=== PATIENT | female | born 1970 | race Caucasian/White ===

== ENCOUNTER 2023-06-30 12:52 | Outpatient (REF) | payer MEDICAID, SELFPAY ==
--- NOTE | 2023-06-30 13:49 | MHC.AU.HA1 ---
Hearing Aid Evaluation Date of Visit: 06/30/23 Historical Information: Description of Hearing: Within normal sloping to moderately-severe sensorineural hearing loss, bilaterally Summary: Elsa recently noticed hearing loss in January 2023 following treatment with cisplatin for cancer. 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 She initially noticed a constant, bilateral ringing in her ears following cisplatin administration. More recently, when her sister was driving her to [place] for treatments, her sister commented that her hearing may also be affected, as she is not hearing and understanding as well as she used to. Elsa has noticed increasing communication difficulties as well, always asking for repetition and rarely understanding a full conversation. She had her hearing evaluated at [facility] and was provided medical clearance for hearing aids. She is hoping hearing aids help ease some of her communication difficulties and help minimize the perception of ringing in her ears. Hearing Aid Prescription: Based on the individual?s shared listening needs, communication environments, dexterity, desire for connectivity, and personal preferences, the following prescription for amplification has been made: Right ear: Make, Model, Color: Phonak Audeo L70-R Color: Sand Beige Battery Size: Rechargeable Collar Feller/Slim Tube: 1M Type of Earmold/Dome/CShell/SlimTip: Small open dome Left ear: Left ear prescription to be same as Right Hearing Aid above: Make, Model, Color: Phonak Audeo L70-R Color: Sand Beige Battery Size: Rechargeable Collar Feller/Slim Tube: 1M Type of Earmold/Dome/CShell/SlimTip: Small open dome Plan of Care: Patient wishes to purchase hearing aids as prescribed Action Taken/Action Needed: Hearing Instrument Fitting to be scheduled when materials arrive Primary Diagnosis: H90.3 Bilateral Sensorineural Hearing Loss Signature: Provider: Narayan Dickson, [facility]
== END 2023-06-30 12:53 | disposition home or self-care (01) ==
LOC: HO.HAP 12:52
PROVIDERS: Visit Provider Otolaryngology
DX: Z46.1 Encounter for fitting and adjustment of hearing aid (principal); H90.3 Sensorineural hearing loss, bilateral
CPT/HCPCS: 92591

== ENCOUNTER 2023-07-25 10:23 | Outpatient (REF) | payer MEDICAID, SELFPAY ==
--- NOTE | 2023-07-25 11:25 | MHC.AU.HA2 ---
Hearing Instrument Fitting- Adult- Binaural Date of Visit: 07/25/23 Hearing Instruments Dispensed: Right Ear: Make, Model, Color, Serial Number: Phonyusra Fosseo L70-R SN: [id number] Color: Sand Beige [employer] Rental Manager Repair Warranty: 10/11/2026 [employer] Fac[employer] Rental Manager Loss and Damage Warranty: 10/11/2026 [facility] Service Plan: 07/25/2024 Battery Size: Rechargeable Call Center Rn/Slim Tube: 1M Earmold/Dome/CShell/SlimTip: Small open dome (no retention tail) Type of Wax Guard: CeruShield Left Ear: Make, Model, Color, Serial Number: Phonak Prudenceeo L70-R SN: [id number] Color: Sand Beige [employer] Fac[employer] Rental Manager Repair Warranty: 10/11/2026 [employer] Rental Manager Loss and Damage Warranty: 10/11/2026 [facility] Service Plan: 07/25/2024 Battery Size: Rechargeable Call Center Rn/Slim Tube: 1M Earmold/Dome/CShell/SlimTip: Small open dome (no retention tail) Type of Wax Guard: CeruShield Accessories/Assistive Technology: Allergist Immunologist: SN: [id number] Summary of Fitting: Performed feedback analyzer and real ear measures. Elsa commented on the loudness of her own voice; otherwise, the hearing aids were comfortable at real ear settings. Discussed care, use, and rechargeability including manually turning on/off, volume control use, and changing domes and wax guards. Practiced insertion and removal. Elsa was able to manipulate the hearing aids easily. Explained acclimatization period and importance of daily, consistent use. Elsa seemed motivated to use and adapt to the hearing aids. Paired to cellphone but did not connect to Phonak koby at this time. Recommendations: A hearing instrument follow-up was scheduled. Diagnosis Code(s): Primary Diagnosis: H90.3 Bilateral Sensorineural Hearing Loss Signature: Provider: Narayan Dickson, [facility]
== END 2023-07-25 10:24 | disposition home or self-care (01) ==
LOC: HO.HAP 10:23
PROVIDERS: Visit Provider Family Medicine
DX: Z46.1 Encounter for fitting and adjustment of hearing aid (principal); H90.3 Sensorineural hearing loss, bilateral
CPT/HCPCS: V5011; V5020; V5160; V5261

== ENCOUNTER 2023-08-12 11:24 | Outpatient (REF) | payer MEDICAID, SELFPAY | END 2023-08-12 11:25 | disposition home or self-care (01) | LOC: HO.HAP 11:24 | PROVIDERS: Visit Provider Otolaryngology | DX: Z13.89 Encounter for screening for other disorder (principal) ==

== ENCOUNTER 2025-03-11 14:27 | Outpatient (REF) | payer MEDICAID, SELFPAY ==
--- OUTSIDE RECORDS SUMMARY | 2025-03-11 14:37 | XMS_ITS | Continuity of Care Document ---
Author Name [facility] Organization [facility] Care Team Providers Care Vat Tender Name Role Phone [facility] Unavailable Unavailable Social History Combined list of available smoking, tobacco, and other social history from [facility] facilities. Social History Type Response Date Comment Sourc e This section is an empty social history section. [facility]
--- OUTSIDE RECORDS SUMMARY | 2025-03-11 14:38 | XMS_ITS | Continuity of Care Document ---
[facility] Organization [facility] , [facility], OFFICE Address [address] [place] [address] Care Team Providers Care Stitch Burnisher Name Role Phone ALEXSHADYALLI OTHER THU PAIGE Stock Worker [facility] OTHER RENETTA STEWART Primary Care Provider [phone] ALEXI LUNDY Diagnostic Radiologist GRISELDA MATTHEW Plastic/Reconstructive Mora geon ALEXI LUNDY Medical Oncologist Assessment No assessment recorded. Plan of Treatment Reminders Order Date Submit Date Provider Last Modified By Organization Details Last Modified Time Details Appointments Same Day Appt, 15 2024 10:00A M RENETTA STEWART NP Not available Not available Not available Ultraso und 2024 09:45A M [facility] Ultrasound Not available Not available Not available Radiolo gy Same Day 2024 10:20A M [facility] Radiology Not available Not available Not available NOAC Phone Call 2025 10:00A M Ehcnoac Not available Not available Not available Lab None recorde d. Referral None recorde d. Procedures None recorde d. Surgeries None recorde d. Imaging XR, thoraci c spine 20[address] ([address] [address], [place], [address], 03/11/2025 11:32:26 US, chest 2024 025 [facility] (Imaging), [address] , [place], [address], 03/11/2025 11:32:37 Medication Orders None recorde d. Patient TargetsNo targets recorded. Patient Instructions Encounter Date Encounter Id Patient Instructions Last Modified By Organization Details Last Modified Time 03/11/2025 [id number] CCM: The provide r and patient discussed the Chronic Care Management program, including the services provided, and any fees associated with them. [email or web address] Not available 03/11/2025 10:28:16 Reason for Referral None Reported. 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 Danita Oseguera M.DTanya [address] [place] [address] [place], [address], [facility] 4 09:22:48 Major depressive disorder 063999826 Active Danita Oseguera M.DTanya [address] [place] [address] [place], [address], [facility] 4 13:15:08 Personal history of primary malignant neoplasm of breast 110256762 Active Danitaluke Oseguera M.DTanya [address] [place] [address] [place], [address], [facility] 4 13:15:08 Neoplasm of adrenal gland 186624100 Active Thu Paige MD [address] [place] [address] [place], [address], [facility] 4 11:37:39 Malignant tumor of thyroid gland 891970249 Active Thu Paige MD [address] [place] [address] [place], [address], [facility] 5 14:57:45 Eruption 742345708 Active Becca Stubbs NP [address] [place], [place] [address], [address], [facility] 6 14:56:21 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 Please review this document and add these problems to the patient's chart manually as needed. Problem Notes None recorded. Procedures Surgical History Date Name Laterality Status Provider Name and Address Organization Details Recorded Time 4 Wound Care completed Lilliana Orellana LPN [facility] 08/10/2024 10:19:57 4 G2211 completed RENETTA STEWART NP [address] [place] [address], [address], [facility] 01/30/2024 12:28:45 0 Post hospital/SNF follow-up/Trans itional Care completed Estefanía Sanches CMA [facility] 10/16/2020 08:41:17 8 Shave Biopsy completed Jonas Puga MD [address] [place] [address], [address], [facility] 08/25/2018 13:05:22 8 [address]: Manual Therapy completed Divya Conner, ALICIA [address] [place] [address], [address], [facility] 02/02/2018 17:08:53 8 Physical Activity Counselling completed Divya Conner, PT [address] [place], [address], [facility] 01/22/2018 20:32:47 8 [address]783: PT Eval Low Complexity completed Divya Conner, PT [address] [place], [address], [facility] 01/22/2018 20:32:43 5 Mastectomy completed Danita Topton M.D. [address] [place] [address], [address], [facility] 06/12/2014 13:20:29 3 completed Danita Oumar M.D. [address] [place] [address], [address], [facility] 06/19/2014 15:03:05 Thyroid Surgery completed Danita Dumo nt M.D. [address] [place] [address], [address], [facility] 06/12/2014 13:20:29 Imaging Results None recorded. Procedure Notes None recorded. Medical Equipment None Reported. Allergies Allergen ID Allergen Name Allergen Category Reaction Reaction Severity Criticality Documentation Date Start Date Code Code System Note Provider Name and Address Organization Details Recorded Time 852352 Bactrim medicatio n rash Not available Not available 03/18/2014 66898 9 RxNorm Estefanía Garza MA [facility] 4 09:32:21 848362 acetamino phen / oxycodone medicatio n nausea Not available Not available 03/18/2014 11132 3 RxNorm Estefanía Garza MA [facility] 4 09:32:21 Medications Name Sig Start Date Stop Date Status Note LastModified by Organization Details LastModified Time cyclobenz aprine 10 mg tablet active Not Available Not Available No t Available amoxicill in 500 mg capsule TAKE 2 CAPSULES BY MOUTH STAT THEN TAKE ONE CAPSULE EVERY 8 HOURS FOR 7 DAYS 02/22 completed Not Available Not Available Not Available levothyro xine 137 mcg tablet TAKE 1 TABLET BY MOUTH EVERY DAY 12/12/ 2022 12/21 /2022 completed Not Available Not Available Not Available doxycycli ne hyclate 100 mg capsule TAKE 1 CAPSULE BY MOUTH TWICE A DAY FOR 7 DAYS 01/29 completed Not Available Not Available Not Available albuterol sulfate 2.5 mg/3 mL (0.083 %) solution for nebulizat ion 11/25 completed Pt not taking 03/06/20 Not Available Not Available Not Available citalopra m 40 mg tablet TAKE 1 TABLET BY MOUTH EVERY DAY 2023 active Not Available Not Available Not Avai lable azithromy antoinette 250 mg tablet TAKE 2 TABLETS (500 MG) BY ORAL ROUTE ONCE DAILY FOR 1 DAY THEN 1 TABLET (250 MG) BY ORAL ROUTE ONCE DAILY FOR 4 DAYS 01/16 completed per [facility] ER note01/17/24 yr pt not taking Not Available Not Available Not Available fluconazo le 150 mg tablet TAKE 1 TABLET BY MOUTH ONCE active Not Available Not Available No t Available benzonata te 200 mg capsule 03/06 completed Pt not taking 03/06/20 NMT Not Available Not Available Not Available hydrocodo ne 5 mg-acetam inophen 325 mg tablet TAKE 1 TABLET BY MOUTH THREE TIMES A DAY FOR 7 DAYS 03/14 completed Not Available Not Available Not Available ondansetr on HCl 8 mg tablet TAKE 1 TABLET BY MOUTH EVERY 8 HOURS NEEDED FOR NAUSEA 01/16 completed has, not using 05/19/23/ 01/17/24 yr pt not taking Not Available Not Available Not Available phenazopy ridine 200 mg tablet 08/17 completed Not Available Not Available Not Available prednison e 20 mg tablet 03/06 completed Pt not using 03/06/20 NMT Not Available Not Available Not Available penicilli n V potassium 500 mg tablet active Not Available Not Available Not Available metronida zole 500 mg tablet Take 1 tablet every 12 hours by oral route for 7 days. 06/14 completed Not Available Not Available Not Available acetamino phen 300 mg-codein e 30 mg tablet Take 1 tablet every 6 hours by oral route as needed for 5 days. 01/10 completed Not Available Not Available Not Available prochlorp erazine maleate 10 mg tablet TAKE 1 TABLET BY MOUTH EVERY 6 HOURS NEEDED FOR NAUSEA 01/16 completed has, not using 05/19/23 4yr pt not taking Not Available Not Available Not Available tramadol 50 mg tablet TAKE 1 TABLET (50 MG TOTAL) BY MOUTH EVERY 6 HOURS NEEDED FOR PAIN 01/16 completed No longer taking 05/19.01/17/24 yr pt not taking Not Available Not Available Not Available cefadroxi l 500 mg capsule TAKE 1 CAPSULE BY MOUTH TWICE A DAY FOR 10 DAYS 06/24 completed Not Available Not Available Not Available amoxicill in 875 mg tablet active Not Available Not Available Not Available hydromorp mendez 2 mg tablet TAKE 1 TABLET BY MOUTH EVERY 4 HOURS NEEDED 01/16 completed 01/17/24 yr pt not taking Not Available Not Available Not Available citalopra m 20 mg tablet TAKE 1 TABLET BY MOUTH EVERY DAY 02/24 completed Not Available Not Available Not Available prednisol one acetate 1 % eye drops,holley pension PLACE 1 DROP IN LEFT EYE 4 TIMES A DAY DIRECTED FOR 10 DAYS 12/28 completed Not Available Not Available Not Available phenazopy ridine 100 mg tablet Take 1 tablet 3 times a day by oral route as needed for 2 days. 10/16 completed Not Available Not Available Not Available baclofen 10 mg tablet TAKE 1 TABLET BY MOUTH EVERY 8 HOURS NEEDED active Not Available Not Available No t Available benzonata te 100 mg capsule 01/29 completed 01/17/24 yr pt not taking Not Available Not Available Not Available doxycycli ne monohydra te 100 mg capsule 03/11 completed Still currentl y taking 08/10/24 cc, Finished course 08/14/24 cc Not Available Not Available Not Available hydrocodo ne 7.5 mg-acetam inophen 325 mg tablet TAKE 1 TABLET BY MOUTH EVERY 12 HOURS NEEDED FOR PAIN 08/17 completed Not Available Not Available Not Available cephalexi n 500 mg capsule TAKE ONE CAPSULE BY MOUTH EVERY 6 HOURS FOR 7 DAYS 08/10 completed PT not taking 08/07/24 MW Not Available Not Available Not Available erythromy antoinette 5 mg/gram (0.5 %) eye ointment APPLY 1/2 INCH IN RIGHT EYE FOUR TIMES DAILY FOR 7 DAYS 01/29 completed 01/17/24 yr pt not taking Not Available Not Available Not Available levothyro xine 125 mcg tablet TAKE 1 TABLET BY MOUTH EVERY DAY active Not Available Not Available No t Available dexametha sone 4 mg tablet TAKE 1 TABLET (4 MG) ON DAY 4 OF CHEMO, THEN TAKE 1/2 TABLET (2 MG) ON DAY 5. 01/16 completed no longer taking 05/19/23/ / 01/17/24 yr pt not taking Not Available Not Available Not Available levothyro xine 150 mcg tablet TAKE 1 TABLET BY MOUTH EVERY DAY *NEED LABS FOR FURTHER REFILLS* 2024 active Not Available Not Available Not Avai lable ibuprofen 400 mg tablet TAKE 1 TABLET BY MOUTH EVERY 8 TO 12 HOURS NEEDED active Not Available Not Available No t Available omeprazol e 20 mg capsule,d elayed release TAKE ONE CAPSULE BY MOUTH EVERY DAY 01/18 completed Not Available Not Available Not Available Culturell e 10 billion cell capsule Take by oral route 1 capsule bid x 2-4 weeks 2013 active Not Available Not Available Not Avai lable bisacodyl 5 mg tablet,de layed release TAKE 4 TABLETS BY MOUTH WITH 80Z OF WATER ONCE THE DAY BEFORE PROCEDUR E 12/28 completed Not Available Not Available Not Available mupirocin 2 % topical ointment APPLY IN EACH NOSTRIL TWICE A DAY FOR 5 DAYS 03/11 completed Not Available Not Available Not Available gabapenti n 100 mg capsule TAKE 2 CAPSULES (200 MG TOTAL) BY MOUTH 2 (TWO) TIMES A DAY FOR 10 DAYS. 01/16 completed 01/17/24 yr pt not taking Not Available Not Available Not Available levofloxa antoinette 750 mg tablet Take 1 tablet every day by oral route for 7 days. 03/11 completed Not Available Not Available Not Available ondansetr on 4 mg disintegr ating tablet 01/29 completed 01/17/24 yr pt not taking Not Available Not Available Not Available fluticaso ne propionat e 50 mcg/actua tion nasal spray,holley pension USE 2 SPRAYS NASALLY EVERY DAY FOR 14 DAYS 01/10 completed Not Available Not Available Not Available amoxicill in 875 mg-potass ium clavulana te 125 mg tablet TAKE 1 TABLET BY MOUTH EVERY 12 HOURS FOR 7 DAYS 01/29 completed Not Available Not Available Not Available tobramyci n 0.3 %-dexamet hasone 0.1 % eye drops,holley ellison PUT 1 DROP INTO LEFT EYE 4 TIMES A DAY FOR 5 DAYS 12/28 completed Not Available Not Available Not Available nitrofura ntoin monohydra te/macroc rystals 100 mg capsule Take 1 capsule every 12 hours by oral route for 5 days. 10/16 completed Not Available Not Available Not Available GaviLyte- G 236 gram-22.7 4 gram-6.74 gram-5.86 gram oral solution USE DIRECTED 12/28 completed Not Available Not Available Not Available EpiPen 2-Abrahan 0.3 mg/0.3 mL injection , auto-inje ctor USE DIRECTED NEEDED FOR ALERGIC REACTION 01/29 completed no longer taking 05/19/23/ / 01/17/24 yr pt not taking Not Available Not Available Not Available Eliquis 5 mg tablet TAKE 1 TABLET BY MOUTH 2 TIMES A DAY 02/05 completed pt not taking 08/07/24 MW Not Available Not Available Not Available Vitals Date Recorded Body height Body mass index (BMI) Body weight Oxygen saturation Oxygen saturation in Arterial blood by Pulse oximetry Heart rate Systolic blood pressure Diastolic blood pressure Provider Name and Address Organization Details Last Updated DateTime 5 166.37 cm 33.2 kg/m2 93920.7 6 g 98 % 98 % 79 /min 124 mm[Hg] 94 mm[Hg] Mirela Braxton CMA [facility] 5 10:31:35 Social History Question Answer Notes LastModified by Organizat ion Details LastModified Time Tobacco Smoking Status Never Smoker [place], [facility] 03/18/2014 09:32:21 Do You Wear A Helmet When Biking? Yes Information not available 03/18/2014 What Is Your Level Of Caffeine Consumption? Moderate ~3 Cups Caffeine/day, Encoruaged To Cut Down To 1 Soda Occasionally [email or web address] Information not available 03/14/2024 How Much Tobacco Do You Chew? None Information not available 03/18/2014 What Type Of Diet Are You Following? REGULAR Information not available 03/18/2014 Which Illicit Or Recreational Drugs Have You Used? Denies Information not available 06/12/2014 Education 12 Information no t available 03/18/2014 What Is The Highest Grade Or Level Of School You Have Completed Or The Highest Degree You Have Received? BY14184-4 [email or web address] Information not available 03/14/2024 How Many Days In The Past Year Have You Had A Heavy Drinking Consumption (4+ Female, 5+ Male)? 0 Information not available 03/18/2014 Are There Any Guns Present In Your Home? No Information not available 06/12/2014 Do You Use Insect Repellent Routinely? Yes [email or web address] Information not available 03/14/2024 Live Alone Or With Others? With Others Information not available 03/18/2014 Patient Has Health Care Proxy Signed And In Chart Yes Information not available 06/12/2014 Marital Status Divroced 08/2020 Information not available 10/16/2020 Mosquito Repellent Used Routinely Yes Information not available 03/18/2014 What Was The Date Of Your Most Recent Tobacco Screening? 03/11/2025 [email or web address] Information not available 03/11/2025 How Many Children Do You Have? 1 2003, [place] Information not available 03/18/2014 What Is Your Relationship Status? [email or web address] Information not available 03/14/2024 Do You Use Your Seat Belt Or Car Seat Routinely? Yes Information not available 05/19/2023 Seat Belts Used Routinely Yes Information not available 03/18/2014 Are You Sexually Active? Yes Information not available 06/12/2014 Smoke Alarm In Home Yes Information not available 03/18/2014 Do You Have Smoke And Carbon Monoxide Detectors In Your Home? Yes Information not available 05/19/2023 Are You Passively Exposed To Smoke? No Information not available 05/19/2023 General Stress Level Medium Information not available 03/18/2014 Do You Use Sunscreen Routinely? Yes Information not available 03/18/2014 Sex: Female Functional Status Question Answer Note LastModified by Organizat ion Details LastModified Time Do you use any illicit or recreational drugs? No Information not available 05/19/2023 What is your level of alcohol consumption? Occasional 1 drink daily Information not available 03/18/2014 Are you currently employed? 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 Occasional Information not available 03/14/2024 Mental Status None recorded. Family History Relationship Description Onset Age of this Age Resolved Age Notes LastModified by Organization Details LastModified Time Maternal Grandfather Malignant neoplasm of bone nos tdumont Not available 2013 15:58:28 Maternal Aunt Malignant tumor of breast 60s tdumont Not available 2013 15:58:28 Maternal Aunt Goiter s/p resect ion tdumont Not available 08/28/2014 15:58:28 Mother Goiter thyroi dectom y as a young adult tdumont Not available 08/28/2014 15:58:28 Father Renal failure syndrome 66 tdumont Not available 2013 15:58:28 Father Essential hypertension tdumont Not available 15:58:28 Brother Essential hypertension tdumont Not available 15:58:28 Paternal Grandmother Malignant neoplasm of lung nonsmo ker (?also breast per dr tan travis's 005 note) tdumont Not available 08/28/2014 15:58:28 Maternal Grandmother Goiter s/p resect ion tdumont Not available 08/28/2014 15:58:28 Notes:paternal cousin with c olon cancer Medical History No medical history recorded. Gynecological History Statement/Question Response Menses Monthly Y Current Control Method IUD Obstetrics History GPAL:G 0 P 0 0 0 0 Immunizations Vaccine Type Date Status Note Provider Nam e and Address Organization Details Recorded Time Influenza, split virus, trivalent, PF 4 completed Not Available [facility] 11/17/2019 02:19:22 influenza, unspecified formulation 2 completed Not Available [facility] 07/15/2021 06:53:40 Tdap 2 completed Not Available [facility] 07/15/2021 06:53:40 Influenza, split virus, quadrivalent, PF 7 completed Not Available [facility] 11/17/2019 02:37:12 Influenza, split virus, quadrivalent, PF 8 completed Not Available [facility] 11/17/2019 02:27:14 Td (adult), 2 Lf tetanus toxoid, preservative free, adsorbed 4 completed RENETTA STEWART NP [address] [place], [address], [facility] 03/14/2024 12:09:39 influenza, unspecified formulation 2 completed Luciana Rodgers [facility], [facility] 10/19/2022 13:45:05 Pneumococcal conjugate PCV20, polysaccharide UAN112 conjugate, adjuvant, PF 2 completed Yvonne Interiano [facility], [facility] 10/22/2022 09:47:50 Past Encounters Encounter ID Performer Location Encounter Start Date Encounter Closed Date Diagnosis/Indication Diagnosis SNOMED-CT Code Diagnosis ICD10 Code Diagnosis Note [id number] Jin Rajan MD , [facility], OFFICE [address] [place] [address] 03/11/2025 10:14:57 03/11/2025 11:24:10 Li-Fraumeni syndrome 821004557 Z15.01 Managed through multiple specialist s, [facility] general oncology team in [place] [id number] R 22.9 -new concern, discovered last week-will obtain x-ray and u/s to best assess the area Health Concerns Section Related Observation LastModified by Organization Detai ls LastModified Time None Recorded Concern Status LastModified by Organization Details LastModified Time None Recorded Payers Encounter Date Sequence Insurance Name Policy Number Policy Gutierrez Covered Member ID Gutierrez Member ID Guarantor Name 03/11/2025 1 [place] [employer] Elsa Henley [id number] Elsa Henley 03/11/2025 2 [place] [facility] Elsa Henley [id number] Elsa Henley Notes Date Note Type Note Provider Name and Address Organization Details Recorded Time 03/11/2025 text/html 03/11/25 -noticed new lump on her mid-spine just last week-not painful-never had a lump like this before-no other associated symptoms RENETTA STEWART NP [address] [place] [address], [place], [address], [facility] 03/11/2025 11:24:07 OBGyn Episode No OBEpisode recorded.
--- OUTSIDE RECORDS SUMMARY | 2025-03-11 14:38 | XMS_ITS | Data Portability ---
Author Organization [facility], , [facility] Address [address] [place] [address] Care Team Providers Care Home Health Care Provider Name Role Phone ALLI PEREZ OTHER THU PAIGE Shoe Puller [facility] OTHER RENETTA STEWART Primary Care Provider [phone] ALEXI LUNDY Diagnostic Radiologist GRISELDA MATTHEW Plastic/Reconstructive Mora geon ALEXI LUNDY Medical Oncologist Assessment No assessment recorded. Plan of Treatment Reminders Order Date Submit Date Provider Last Modified By Organization Details Last Modified Time Details Appointments Same Day Appt, 15 2024 10:00A M RENETTA STEWART NP Not available Not available Not available Ultraso und 2024 09:45A M [facility] Ultrasound Not available Not available Not available Radiolo gy Same Day 2024 10:20A M [facility] Radiology Not available Not available Not available NOAC Phone Call 2025 10:00A M [facility] Not available Not available Not available Lab pap, LB + HPV - Pap smear with HPVIs this patient on hormone s? (N) If yes, what type? 2023 024 [facility] (Pathology), [address] [facility], [place], [address], 03/22/2024 11:10:59 Referral None recorde d. Procedures None recorde d. Surgeries None recorde d. Imaging XR, thoraci c spine [address] (Imaging), [address], [place], [address], 03/11/2025 11:32:26 US, chest [address] (Imaging), [address], [place], [address], 03/11/2025 11:32:37 Medication Orders levoflo xacin 750 mg tablet 2023 025 [id number], [address], [place], [id number], 03/11/2025 10:30:34 levoflo xacin 750 mg tablet 2023 024 [email or web address] [facility] #[id number], [address], [place], [id number], 03/11/2025 10:29:07 mupiroc in 2 % topical ointmen t 2023 025 [facility]/Pharmacy #5, [address] [place], [address], 03/11/2025 10:29:21 Patient TargetsNo targets recorded. Patient Instructions Encounter Date Encounter Id Patient Instructions Last Modified By Organization Details Last Modified Time 08/10/2024 [id number] CCM: The provide r and patient discussed the Chronic Care Management program, including the services provided, and any fees associated with them. [email or web address] Not available 08/09/2024 16:57:47 03/11/2025 [id number] CCM: The provide r and patient discussed the Chronic Care Management program, including the services provided, and any fees associated with them. [email or web address] Not available 03/11/2025 10:28:16 Reason for Referral None Reported. Results Created Date Observation Date Name Description Value Unit Range Abnormal Flag Note LastModifiedBy Organization Detail LastModifiedTime 03/14/20 24 03/22/2024 PAP TEST path report Ramakrishnaangy lopez [facility] [address] [facility] Collin efrain burger, [place] [address] Lab Direc tor: Ngozi arias MD DIRECTOR [employer] Cytol ogy Repor t Acces hillary #: [id number] FINAL DIAGN OSIS A. PAP SMEAR (THIN PREP) CE: SPECI MEN ADEQU ACY: Satis facto ry for evalu ation ; trans forma tion zone absen t/ins [facility] ient. INTER PRETA TION: NEGAT ELIZABETH FOR INTRA EPITH ELIAL LESIO N OR MALIG YUNG . Cocco bacil li consi stent with shift in traci This speci men was win zed by the autom ated ThinP rep Imagi ricardo Julio m ([employer]. ) and manua antonietay rescr eened by a cytot echno logis t and/o r patho logis t. Elect reggie singh Yvonne d Out By: Viky Cleveland , CT( CP) Joyce Bright er, CT( CP) The Pap test is a scree jamison test prima rily for squam ous cance rs and precu rsors and has assoc iated false -nega tive and false -posi tive resul ts. New techn ologi es such as liqui d-bas ed prepa ratio ns may decre ase but will not elimi kylee all false -nega tive resul ts. Regul ar sampl ing and follo w-up of unexp jean d clini raquel signs and sympt oms are recom aaron d to minim ize false negat elizabeth resul ts. PROCE DURES /ADDE NDA HPV Testi ng (Requ ested ) Order ed Date: 2023 A. PAP SMEAR (THIN PREP) CE: Human Papil sweetie Virus Test NEGAT ELIZABETH for high- risk Human Papil sweetie Virus types 16, 18, 45 and the Othe r high risk probe set (Incl udes 31, 33, 35, 39, 51, 52, 56, 58, 59, 66, 68) Note: Testi ng perfo rmed by William Asher nson Oncla rity HR-HP V win sis. Clini raquel corre latio n is advis ed. This HPV test was perfo rmed at [facility], [address] [facility] tts. This test has been FDA appro radha for both SureP ath and ThinP rep cervi raquel cytol ogy speci mens. The accur acy and preci hillary of this test for all other speci men sourc es has been verif ied in the Cytop athol ogy Labor atory of the [facility] denise and has not been clear ed or appro radha by the U.S. Food and Drug Admin istra tion. Clini raquel corre latio n is advis ed. Marium ctron icall y Yvonne d Out By: MELINA Campos( CP) on 2023 11:16 CLINI RAQUEL HISTO RY Date of Last Menst rual Perio d: Not Provi ded Menst rual Histo ry: Post Menop ausal Other Clini raquel Condi tions : Scree jamison Pap SPECI MEN SOURC E A: PAP SMEAR (THIN PREP) CE Patie nt Name: DEVANTE RIVERA : 972 (Age: 53) Sex: F 8 Insti tutio n: [facility] Locat ion: [facility] Date of Colle ction : 2023 Date of Acces hillary: 2023 Repor rosi: 2023 10:45 Resul ts to: Renetta parker BULB PACKER Not Available [facility] (Outpatient) [address] [place] [address], [address], 03/22/2024 11:10:59 Result Notes None recorded. 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 [address] [place], [place] [address], [address], [facility] 4 09:22:48 Major depressive disorder 644544907 Active Danita Oseguera M.D. [address] [place], [place] [address], [address], [facility] 4 13:15:08 Personal history of primary malignant neoplasm of breast 111931710 Active Danita Oseguera M.D. [address] [place], [place] [address], [address], [facility] 4 13:15:08 Neoplasm of adrenal gland 910312771 Active Thu Paige MD [address] [place], [place] [address], [address], [facility] 4 11:37:39 Malignant tumor of thyroid gland 038066065 Active Thu Paige MD [address] [place], [place] [address], [address], [facility] 5 14:57:45 Eruption 438414919 Active Becca Stubbs NP [address] [place], [place] [address], [address], [facility] 6 14:56:21 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 Please review this document and add these problems to the patient's chart manually as needed. Problem Notes None recorded. Procedures Surgical History Date Name Laterality Status Provider Name and Address Organization Details Recorded Time 4 Wound Care completed Lilliana Orellana LPN [facility] 08/10/2024 10:19:57 4 G2211 completed RENETTA STEWART NP [address] [place] [address], [address], [facility] 01/30/2024 12:28:45 0 Post hospital/SNF follow-up/Trans itional Care completed Estefanía Sanches CMA [facility] 10/16/2020 08:41:17 8 Shave Biopsy completed Jonas Puga MD [address] [place] [address], [address], [facility] 08/25/2018 13:05:22 8 [address]: Manual Therapy completed Divya Conner, PT [address] [place] [address], [address], [facility] 02/02/2018 17:08:53 8 Physical Activity Counselling completed Divya Conner, PT [address] [place], [address], [facility] 01/22/2018 20:32:47 8 [address]: PT Eval Low Complexity completed Divya Conner, PT [address] [place] [address], [address], [facility] 01/22/2018 20:32:43 5 Mastectomy completed Danita Oseguera M.D. [address] [place] [address], [address], [facility] 06/12/2014 13:20:29 3 completed Danita Oseguera M.D. [address] [place] [address], [address], [facility] 06/19/2014 15:03:05 Thyroid Surgery completed Danita edmonds M.D. [address] [place] [address], [address], [facility] 06/12/2014 13:20:29 Imaging Results None recorded. Procedure Notes None recorded. Medical Equipment None Reported. Allergies Allergen ID Allergen Name Allergen Category Reaction Reaction Severity Criticality Documentation Date Start Date Code Code System Note Provider Name and Address Organization Details Recorded Time 145404 Bactrim medicatio n rash Not available Not available 03/18/2014 37597 9 RxNorm Estefanía RoxyANDREW sandoval [facility] 4 09:32:21 058705 acetamino phen / oxycodone medicatio n nausea Not available Not available 03/18/2014 25011 3 RxNorm Estefanía Garza [place] [facility] 4 09:32:21 Medications Name Sig Start Date [...] TAKE 1 TABLET BY MOUTH EVERY DAY 10/20 completed Not Available Not Available Not Available [...] DAILY FOR 4 DAYS 01/16 completed per [facility] note01/17/24 yr pt not taking Not [...] NAUSEA 01/16 completed has, not using 05/19/23/ 4yr pt not taking Not Available Not [...] 0.3 %-dexamet hasone 0.1 % eye drops,holley pension PUT 1 DROP INTO LEFT EYE 4 [...] rate Systolic blood pressure Diastolic blood pressure Systolic blood pressure Diastolic blood pressure Provider Name and Address Organization Details Last Updated DateTime 4 166.37 cm 33.3 kg/m2 59260.0 5 g 98 % 98 % 75 /min 104 mm[Hg] 88 mm[Hg] 111 mm[Hg] 91 mm[Hg] Jaquan Fontenot [facility] 4 10:36:33 Date Recorded Body height Heart rate Body temperature Systolic blood pressure Diastolic blood pressure Provider Name and Address Organization Details Last Updated DateTime 08/07/2024 166.37 cm 72 /min 98.1 [degF] 118 mm[Hg] 78 mm[Hg] Juanita Green [facility] 4 17:29:04 Date Recorded Body height Oxygen saturation Oxygen saturation in Arterial blood by Pulse oximetry Heart rate Systolic blood pressure Diastolic blood pressure Systolic blood pressure Diastolic blood pressure Provider Name and Address Organization Details Last Updated DateTime 4 166.37 cm 98 % 98 % 94 /min 138 mm[Hg] 94 mm[Hg] 136 mm[Hg] 90 mm[Hg] Karma Centeno [facility] 4 09:34:07 Date Recorded Systolic blood pressure Diastolic blood pressure Provider Name and Address Organization Details Last Updated DateTime 08/10/2024 140 mm[Hg] 85 mm[Hg] Shannon Olivera [facility] 08/10/2024 10:02:34 Date Recorded Body height Oxygen saturation Oxygen saturation in Arterial blood by Pulse oximetry Heart rate Systolic blood pressure Diastolic blood pressure Provider Name and Address Organization Details Last Updated DateTime 4 166.37 cm 99 % 99 % 83 /min 126 mm[Hg] 92 mm[Hg] Karma Centeno [facility] 4 11:50:01 Date Recorded Body height Body mass index (BMI) Body weight Oxygen saturation Oxygen saturation in Arterial blood by Pulse oximetry Heart rate Systolic blood pressure Diastolic blood pressure Provider Name and Address Organization Details Last Updated DateTime 5 166.37 cm 33.2 kg/m2 17039.7 6 g 98 % 98 % 79 /min 124 mm[Hg] 94 mm[Hg] Mirela Braxton CMA [facility] 5 10:31:35 Social History Question Answer Notes LastModified by Organizat ion Details LastModified Time Tobacco Smoking Status Never Smoker ANDREW Beckford, [facility] 03/18/2014 09:32:21 Do You Wear A Helmet When Biking? Yes Information not available 03/18/2014 What Is Your Level Of Caffeine Consumption? Moderate ~3 Cups Caffeine/day, Encoruaged To Cut Down To 1 Soda Occasionally [email or web address] Information not available 03/14/2024 How Much Tobacco [...] Or The Highest Degree You Have Received? [id number] [email or web address] Information not available 03/14/2024 How Many Days In The Past Year Have You Had A Heavy Drinking Consumption (4+ Female, 5+ Male)? 0 Information not available 03/18/2014 Are There Any Guns Present In Your Home? No Information not available 06/12/2014 Do You Use Insect Repellent Routinely? Yes Information not available 03/14/2024 Live Alone Or [...] How Many Children Do You Have? 1 Delores, Mac Information not available 03/18/2014 What Is Your Relationship Status? [email or web address] Information not available 03/14/2024 Do You Use [...] available 03/18/2014 Are you currently employed? 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 Gynecological History Statement/Question Response Menses Monthly Y Current Control Method IUD Obstetrics History GPAL:G 0 P 0 0 0 0 Immunizations Vaccine Type Date Status Note Provider Nam e and Address Organization Details Recorded Time Influenza, split virus, trivalent, PF 4 completed Not Available [facility] 11/17/2019 02:19:22 influenza, unspecified formulation 2 completed Not Available [facility] 07/15/2021 06:53:40 Tdap 2 completed Not Available [facility] 07/15/2021 06:53:40 Influenza, split virus, quadrivalent, PF 7 completed Not Available [facility] 11/17/2019 02:37:12 Influenza, split virus, quadrivalent, PF 8 completed Not Available [facility] 11/17/2019 02:27:14 Td (adult), 2 Lf tetanus toxoid, preservative free, adsorbed 4 completed RENETTA STEWART NP [address] [place], [address], [facility] 03/14/2024 12:09:39 influenza, unspecified formulation 2 completed Luciana Rodgers CMA null, [facility] 10/19/2022 13:45:05 Pneumococcal conjugate PCV20, polysaccharide AUV383 conjugate, adjuvant, PF 2 completed Yvonne Interiano MA null, [facility] 10/22/2022 09:47:50 Past Encounters Encounter ID Performer Location Encounter Start Date Encounter Closed Date Diagnosis/Indication Diagnosis SNOMED-CT Code Diagnosis ICD10 Code Diagnosis Note [id number] Jonas Puga MD , [facility], OFFICE [address] [place] [address] 03/18/2014 09:18:06 03/18/2014 10:28:05 Depressive disorder 95457328 Hypothyroidism 65045849 Surgical removal of thyroid for cancer 2006 [id number] Danita Oseguera M.D. , [facility], OFFICE [address] [place] [address] 06/07/2014 11:24:09 06/07/2014 12:52:45 Counseling [id number] Screening for malignant neoplasm of cervix 188871630 due unclear when last done see below Bacterial vaginosis 659181920 by microscopy +BV w/ clue cells neg andres with yeast or hyphae or no trich on wet mount pt declined g/c testing IUD check 547559815 no s tring on exam today concerning see below Li-Fraumeni syndrome [id number] prior under the care of alli perez md [facility] [address] [place] [address] called 06/07/2014 to obtain guidance re: further screening/ monitoring need to review this with [facility] team: increased risk of sarcoma (which can likely occur in fallopian/ ovarian/ce rvical region), colon and brain tumors pt is s/p mastectomy with silicone implants (which are irreg shaped) she previously was getting whole body MRI which sounds reasonable in light of significan t risks unclear if she should be followed by serology tumor markers like ca 125, cea etc unclear if she should have yearly pap exam w/ hpv testing discussed with pt at length that her condition is rare therefore there is not good data for these specific recommenda tions (will address w/ dr perez) Major depr essive disorder 046582346 on celexa 40mg ekg now w/ normal QT (copy provided to pt for her records) Personal h istory of primary malignant neoplasm of breast 398951786 Neoplasm o f adrenal gland 874025166 history of adrenal tumor Malignant tumor of thyroid gland 715255187 history of thyroid cancer Hypothyroidism 61564831 s/p thyroidect madi due to cancer on stable dose of levothyrox ine [id number] Danita SOARES, [facility], OFFICE [address] [place] [address] 06/28/2014 14:18:51 06/28/2014 16:36:19 Li-Fraumeni syndrome [id number] patient followed by: alli perez md [address] [address] He has specific recommenda tions as he is an expert in this field of a very rare disorder he recommends 1) yearly mri abd/pelvis 2) thyroglubi n ab tumor marker yearly, should be undetectab le 3) thyroid US yearly NOTE: dr perez notes he will see pt anytime needed, does not matter if she has insurance or not she is to obtain the above work up and then see dr perez 1 week later at [facility] Nausea 066826658 3-4 day s of nausea, feels like may throw up completed metronidaz ole ~1 week ago loss of appetite; wt stable no vomiting checking cmp but close follow up needed ?redflag of something concerning or SE of metronidaz ole? Vaginitis 05517541 no improvemen t s/p metronidaz ole; given ongoing heavy dc, trial of fluconazol e for a yeast infection [id number] Thu Paige MD Endocrino logy, [facility] [address] [place] [address] 08/02/2014 10:13:32 08/02/2014 11:53:25 Malignant tumor of thyroid gland 539187255 Hypothyroidism 17561018 Li-Fraumeni syndrome 329592481 [id number] Danita Oseguera M.D. , [facility], OFFICE [address] [place] [address] 08/28/2014 15:25:11 08/28/2014 16:16:55 Li-Fraumeni syndrome [id number] patient followed by: alli perez md [address] [address] He has specific recommenda tions as he is an expert in this field of a very rare disorder he recommends 1) yearly mri abd/pelvis (07/2014 stable, following a pelvic cyst w/ fup pelvic US in aug or sep) 2) thyroglubi n ab tumor marker yearly, should be undetectab le (05/2014 undetectab le) 3) thyroid US yearly (07/2014 wnl) NOTE: dr perez notes he will see pt anytime needed, does not matter if she has insurance or not she is to obtain the above work up and then see dr perez seeing aug 2014 Influenza vaccine needed 2728444154 715 [id number] Becca Stubbs NP , [facility], OFFICE [address] [place] [phone] 01/23/2016 14:47:20 01/23/2016 15:43:45 Adult health examination 293986667 Z00.00 see Risk Assessment and Lifestyle Change Counseling section above Counseling 988985226 Z71 .9 Eruption 418616136 R21 Screening for malignant neoplasm of cervix 008591876 Z12.4 [id number] Becca Stubbs NP , [facility], OFFICE [address] [place] [address] 01/21/2017 09:25:29 01/24/2017 09:50:52 Mass of chest wall 240805932 R22.2 Li-Fraumeni syndrome 428 300975 Z15.01 Infection of sebaceous cyst 557068405 L72.3 [id number] Jonas uPga MD , [facility], OFFICE [address] [place] [address] 01/31/2017 09:19:28 01/31/2017 10:22:04 Adult health examination 267079607 Z00.00 see Risk Assessment and Lifestyle Change Counseling section above Counseling 377425623 Z71 .9 Menorrhagia 888806195 N9 2.0 Li-Fraumeni syndrome 428 174915 Z15.01 Screening for malignant neoplasm of colon 934059949 Z12.11 Referral for a DIRECT booked colonoscop y. This patient is a healthy ASA Class 1 or 2 patient (only mild systemic disease), or a STABLE, well controlled insulin dependent diabetic. They do not have serious cardiac disease ie CA/angiopl asty within 1 year, symptomati c CHF; renal failure with CKD 4 or 5; take Coumadin, Plavix, Aggrenox, etc. [id number] Thu Paige MD Endocrino logy, [address] [place] [address] 02/22/2017 11:04:30 02/22/2017 12:32:22 Hypothyroidism 15241900 E03.9 -reduce levothyrox ine 137mcg by mouth once daily from 150mcg daily-tsh in 3mo-clinic 13 weeks to review-aim for tsh 0.5 to 2 History of malignant neoplasm of thyroid 669092731 Z85.850 -monitor thyroglobu kacie level as send out to [facility] (thyroid cancer monitoring ) in the future when tsh closer to 1 [id number] Jonas Puga MD , [facility], OFFICE [address] [place] [address] 08/17/2017 16:12:46 08/17/2017 17:19:08 Pain in eye 29223740 H57.12 Active or passive immunization 812144662 Z23 Li-Fraumeni syndrome 428 997462 Z15.01 [id number] Jin Rajan MD , [facility], OFFICE [address] [place] [address] 12/28/2017 15:28:45 12/28/2017 16:17:55 Right upper quadrant pain 975142191 R10.11 [id number] Jin Rajan MD , [facility], OFFICE [address] [place] [address] 01/18/2018 16:18:46 01/20/2018 12:08:25 Low back pain 629048969 M54.5 Li-Fraumeni syndrome 428 850662 Z15.01 [id number] Divya Conner, PT Physical Therapy, [address] [address] 01/20/2018 15:05:02 01/23/2018 07:25:10 Low back pain 886221413 M54.5 [id number] Divya Conner, PT Physical Therapy, [address] [address] 02/02/2018 14:32:41 02/03/2018 07:48:31 Low back pain 925309816 M54.5 [id number] Jonas Puga MD [facility], OFFICE [address] [place] [id number] 02/03/2018 15:39:07 02/03/2018 16:27:57 Adult health examination 510735683 Z00.00 see Risk Assessment and Lifestyle Change Counseling section above Counseling 119544143 Z71 .9 Depression screening 171 110330 Z13.89 depression screening tool administer ed, entered into emr, scored and discussed, time greater than 7.5 minutes. Discussed screening. Some struggles in marriage. Citalopram helping. Continue to monitor. Screening for malignant neoplasm of cervix 152788670 Z12.4 Li-Fraumeni syndrome 428 064889 Z15.01 Low back pain 987552762 M54.5 [id number] Jonas Puga MD , [facility], OFFICE [address] [place] [address] 08/10/2018 15:57:40 08/10/2018 16:49:11 Active or passive immunization 236461138 Z23 Li-Fraumeni syndrome 428 688483 Z15.01 Hx of thyroid, breast and adrenal cancer [id number] Jonas Puga MD , [facility], OFFICE [address] [place] [phone] 08/25/2018 11:55:11 08/25/2018 13:06:23 Melanocytic nevus 354919407 D22.9 [id number] Maine Ortiz NP , [facility], OFFICE [address] [place] [phone] 10/10/2018 11:59:52 10/10/2018 13:38:12 Acute upper respiratory infection 17392430 J06.9 Drink plenty of fluids. Eat healthy foods, lots of fruits and vegetables . Rest when you can. Take ibuprofen 400 mg or acetaminop hen 650 mg every 6 hours as needed for aches or headache and for fever. You can use a Neti pot for nasal congestion or sinus pain/press ure. Elderberry extract and Umcka are herbal remedies that have been shown to reduce length of flu-like symptoms. Gargling with salt water can help your immune system fight off the sore throat. Mix 1/2 teaspoon of salt with 8 oz warm water, gargle for 20-30 secs, and spit out the liquid. Repeat twice daily. Use Sugar free lozenges can help with a sore throat. Wash your hands frequently . Symptoms may worsen for the first 7-10 days before they improve For high fever (>101) for more than 3 days, worsening shortness of breath, cough productive of rust-color ed mucus (not dark yellow), or symptoms unchanged at two weeks, come back in for reassessme nt (urgent care available in [place] office 07-04 and Tuesday- by appointmen t - call after 8AM for appt.) Dry cough can last for up to six weeks. Hypocalcemia [id number] E83 .51 recent low calcium, will repeat at lab today. ordered by amandeep [id number] Lindsey Barrios , [facility], OFFICE [address] [place] [address] 11/03/2018 17:01:51 11/09/2018 10:43:25 Rib pain [id number] R07.81 - appears to pulled rib muscles from frequent coughing during recent cold- recommend anti-infla mmatory medication s such as ibuprofen- ice ribs and encouraged deep breaths- return to office if symptoms worsen [id number] Thu Paige MD Endocrino logy, [facility] [address] [place] [address] 01/10/2019 07:28:11 01/10/2019 08:03:47 Hypothyroidism 60140309 E03.9 -levothyro xine 137mcg by mouth once daily-tsh now and every 3mo, likely reduce hormone dose-pleas e portal me to ask for refill if I do not say I am prescribin g/refillin g levothyrox ine -aim for tsh 0.4 to 2 History of malignant neoplasm of thyroid 050419326 Z85.850 -monitor thyroglobu kacie level as send out to [facility] (thyroid cancer monitoring ) in the future when tsh closer to 1-may consider ultrasound neck every few years, last 2017, you prefer not now Choking sensation 816264 009 R09.89 Fatigue 46571663 R53.83 Hypersomnia 22524005 G47 .10 [id number] Maine Ortiz NP FP, [facility], OFFICE [address] [place] [address] 03/06/2020 09:46:12 03/07/2020 13:15:17 Urinary tract infectious disease 01235199 N39.0 will treat uncomplica rosi UTI based on Sx. no abd pain, flank pain, fever. maintain fluid intake and vit C. Macrobid as prescribed . pyridium as needed. will turn urine orange/red . call if not improving in 2-3 days, would need UA and culture. 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, breast and adrenal cancer History of malignant neoplasm of thyroid 813906775 Z85.850 Disorder of nail 6207417 8 L60.9 [id number] Jonas Puga MD , [facility], OFFICE [address] [place] [address] 06/24/2022 09:10:28 06/29/2022 13:18:02 Screening for malignant neoplasm of cervix 403273791 Z12.4 Will schedule wellness and do then Active or passive immunization 414883200 Z23 Not getting shingles for now Depressive disorder 2788 9007 F32.9 Discussed with pt since she has been off her citalopram for 2 months should start at 20 and if tolerating with no GI effects can increase to 40 mg in one week. Pt will message on portal with how she is tolerating re starting med Pt scheduelin g wellness, if booking out too far can schedule follow up in meantime Advised of return precaution s Localized swelling, mass and lump, lower limb 499057459 R22.41 2 cm mass under skin, ?lipoma vs cyst.Will send for US today 1015Discus sed and saw with HK, pend US results and referral for general surgery as needed for removal [id number] Jonas Puga MD , [facility], OFFICE [address] [place] [address] 10/20/2022 11:14:44 10/20/2022 11:55:02 Adult health examination 399518215 Z00.00 Reassuring examBreast awareness discussed and encouraged Cervical cancer screening 2018 normal, - HPV, repeat 2022 Counseling 869972896 Z71 .9 including cardiovasc ular risk reduction counseling Depression screening 171 264308 Z13.31 depression screening tool administer ed, entered into emr, scored and discussed, time greater than 7.5 minutes Screening for alcohol abuse 457396233 Z13.39 An audit alcohol screening test was performed and scored. Patient was asked about alcohol use, advised about risks of alcohol, and personal risk was assessed, patient agreed to plan and given informatio n about available resources if needed. Discussion including screening and scoring greater than 7.5 minutes Active or passive immunization 407793148 Luca Will get tetanus and pneumonia today at pharmacy (prevnar 20)Will consider shingles vaccine in the future Hypothyroidism 75921150 E03.9 Meeting with thryoid specialist in [place] tomorrowWi ll defer checking thyroid labs to specialist Malignant neoplasm of lung 782390338 C34.90 Having procedure on 11/02/22, explorator y, may undergo lobectomy depending on findingsLi jacqueline will have chemothera py following procedure Li-Fraumeni syndrome 428 718266 Z15.01 Managed through multiple specialist s, [facility] in [place] [id number] Jonas Puga MD , [facility], OFFICE [address] [place] [address] 05/19/2023 08:09:12 05/20/2023 10:21:17 Screening for malignant neoplasm of cervix 309188765 Z12.4 declined today Screening mammography 24 696222 Z12.31 pt reminded due Active or passive immunization 953100448 Luca Will check with oncology if she can have tdap, shingles Pre-surger y evaluation 159826211 Z01.818 - pt presenting for pre-op physical and EKG- EKG not indicated- Revised Cardiac Risk Index (RCRI): score 0, class I, 0.4% risk 1. High-risk type of surgery (examples include vascular surgery and any open intraperit willoughyb or intrathora cic procedures )2. History of ischemic heart disease (history of myocardial infarction or a positive exercise test, current complaint of chest pain considered to be secondary to myocardial ischemia, use of nitrate therapy, or ECG with pathologic al Q waves; do not count prior coronary revascular ization procedure unless one of the other criteria for ischemic heart disease is present)3. History of heart failure4. History of cerebrovas cular disease5. Diabetes mellitus requiring treatment with insulin6. Preoperati ve serum creatinine >2.0 mg/dL (177 micromol/L ) 0 class I 0.4% risk Patient is cleared for surgery. Malignant neoplasm of lung 075899874 C34.90 -f/b oncology team through [facility] [id number] Jin Rajan MD , [facility], OFFICE [address] [place] [address] 01/17/2024 10:48:03 01/17/2024 11:28:35 Pneumonia 636174910 J18.9 Worsening cough in the setting of pneumonia that was viral versus bacterial but treated w/ azithromyc in, was initially better, now worse. Has a hx of lung cancer and risk factors for PE. + pleual effusion + ddimer.-ch est chest xray, reviewed effusion seen-labs ordered and reviewed-a ntibiotics ordered for outpatient however Ddimer was positive and pleural effusion present, given complicate d hx - and need for CT chest due to DDimer- patient will go to the ER for further imaging and management . Can discuss inpatient versus IV antibiotic s and r/o PE. Patient agrees with plan to go to ER. Tachycardia 6445077 R00. 0 Elevated, DDimer positive, has risk factors, will go to ER. [id number] Jonas Puga MD , [facility], OFFICE [address] [place] [address] 01/30/2024 10:57:34 01/31/2024 08:52:51 Pulmonary embolism 49865020 I26.99 -reviewed [facility] hospital notes-clot is attached to port which she is not using at this time-start ed on eliquis 5 mg BID-will be having port removed 02/08/24 through her oncologist Fracture o f multiple ribs 9154553 S22.41XD -requestin g extended script of percocet, ordered Li-Fraumeni syndrome 428 846845 Z15.01 Managed through multiple specialist s, [facility] oncology team in [place] Malignant neoplasm of lung 611832558 C34.90 -f/b oncology team through [facility] [id number] Jonas Puga MD , [facility], OFFICE [address] [place] [phone] 03/14/2024 10:18:27 03/14/2024 11:47:51 Adult health examination 738209184 Z00.00 Reassuring examBreast awareness discussed and encouraged Cervical cancer screening 2018 normal, pap completed today Depression screening 171 556538 Z13.31 depression screening tool administer ed Screening for alcohol abuse 703378007 Z13.39 Alcohol use screening tool administer ed Screening mammography 24 527904 Z12.31 -no longer receives mammograms regularly, has implants Active or passive immunization 201007057 Z23 Li-Fraumeni syndrome 428 884849 Z15.01 Managed through multiple specialist s, [facility] [place] had scans and has vv tomorrow to review results Screening for malignant neoplasm of cervix 305470634 Z12.4 -pap completed today [id number] Jonas Puga MD , [facility], OFFICE [address] [place] [address] 08/07/2024 17:12:17 08/08/2024 09:44:34 Active or passive immunization 143432931 Z23 Shingles:F snow: Methicilli n resistant Staphylococcus aureus infection 296586226 A49.02 continue doxycyclin e and keep area covered, wound dressed by nurse tonie smyth area of redness with surgical pen, if not improving by [place] call and [place] [facility] Tue and schedule follow up with PCP [id number] Jin Rajan MD , [facility], OFFICE [address] [place] [phone] 08/10/2024 09:26:23 08/10/2024 10:19:57 Active or passive immunization 427699433 Z23 flu - declines 08/10/24 ccshingles - reminded Methicilli n resistant Staphylococcus aureus infection 762212330 A49.02 wound starting last week on R holland, [facility] for MRSA [facility], now on doxycyclin ewound appears to be improving however erythema continues to progressre viewed wound culture with susceptibi lities and reviewed with Dr. Анна becerril continuing doxycyline course as prescribed and ADD levofloxac in; New medication was discussed today with patient including risks, benefits, possible and expected side effects. Patient understand s and is willing to begin medication as prescribed .close f/u early next week to reassessaw are of hours over weekend if neededcons ider wound care and/or ID consult next week if still worsening/ not improving Elevated blood-pressure reading without diagnosis of hypertension 747613243 R03.0 mildly above goal, not on HTN medication will reassess at follow up [id number] Jin Rajan MD , [facility], OFFICE [address] [place] [address] 08/14/2024 11:39:47 08/14/2024 15:39:43 Active or passive immunization 352658821 Z23 flu - declines 08/10/24 ccshingles - reminded Methicilli n resistant Staphylococcus aureus infection 604471208 A49.02 wound starting 2 weeks ago on R holland, [facility] for MRSA at [facility] change with keflex or doxycyclin e, is having improvemen ts thus far on levaquinre c to continue 7 day course of levaquin as prescribed , extend to 14 days if still erythemato us at end of the week - can portal/raquel l to check inwound care reviewed, okay to leave open while at homecall with any questions/ concerns Elevated blood-pressure reading without diagnosis of hypertension 711137622 R03.0 mildly above goal, not on HTN medication rec home monitoring and f/u as above [id number] Jin Rajan MD , [facility], OFFICE [address] [place] [address] 03/11/2025 10:14:57 03/11/2025 11:24:10 Li-Fraumeni syndrome 402078811 Z15.01 Managed through multiple specialist s, [facility] [place] of skin 956577497 R 22.9 -new concern, discovered last week-will obtain x-ray and u/s to best assess the area Health Concerns Section Related Observation LastModified by Organization Detai ls LastModified Time None Recorded Concern Status LastModified by Organization Details LastModified Time None Recorded Advance Directives Directive None Recorded Payers Encounter Date Sequence Insurance Name Policy Number Policy Gutierrez Covered Member ID Gutierrez Member ID Guarantor Name 03/14/2024 1 [facility] - DOS ON OR AFTER 2023 - [facility] (MEDICAID REPLACEMENT - HMO) Elsa Garcialicoeur [id number] Elsa Garcialicoeur 08/07/2024 1 [facility] - DOS ON OR AFTER 2023 - [facility] (MEDICAID REPLACEMENT - HMO) Elsa Garcialicoeur [id number] Elsa Garcialicoeur 08/10/2024 1 [place] [employer] [employer] Elsa Weaver Kale [id number] Elsa Kale 08/10/2024 2 [place] Elsa Weaver Kale [id number] Elsa Kale 08/14/2024 1 [place] Elsa Weaver Kale [id number] Elsa Kale 08/14/2024 2 [place] Elsa Weaver Kale [id number] Elsa Kale 03/11/2025 1 [place] Elsa Weaver Kale [id number] Elsa Kale 03/11/2025 2 [place] Elsa Weaver Kale [id number] Elsa Souzaoeur Notes Date Note Type Note Provider Name and Address Organization Details Recorded Time 03/14/2024 text/html Physical Exam/FemaleReported bypatient.PHAPatient is here for a Wellness Visit. She describes her health status as fair. Patient's health is worse than last year.Risk Assessment and Lifestyle Change Counseling 50-64Reported bypatient.Coronary Artery Disease Risk Assessment:No Family history of coronary artery disease; No personal history of diabetes; No history of peripheral vascular disease, AAA, or carotid disease; No personal history of coronary artery disease Breast Cancer Risk Assessment:Family history of breast cancer;Personal history of breast cancer or dcis Colon Cancer Risk Assessment:Family history of colon polyps or colon cancer Lung Cancer Risk Assessment:Never smoked; No asbestos exposure Fracture Risk Assessment:No unexplained fracture Cognitive/Behavioral Risk Assessment:No personal history of mental illness; No family history of mental illness Safety Risk Assessment:No evidence of abuse/neglect Diet:Counseled about appropriate portion size; Counseled about eating a diet low in trans and saturated fats and high in fiber, fruits and vegetables; Counseled about appropriate calcium intake and good dietary sources of calcium.; Counseled about the importance of maintaining a positive calcium balance and taking 1000 iu Vitamin D daily.; Counseled about decreasing carbohydrates; Counseled about decreasing salt in diet; Discussed the value of a Mediterranean diet , and eating more fruits and vegetables Exercise counseling:Discussed the importance of daily physical activity; Discussed the importance of weight bearing exercise Safety:Counseled about protecting skin from the sun and lowering the risk of skin cancer; Counseled about avoiding excessive and unsafe alcohol intake; Counseled about safer sexual practice; Counseled about use of helmets for high velocity activiities; Counseled about home safety including use of smoke detectors, CO detectors, keeping home water temperature less than 120; Counseled about use of seat belts; An audit alcohol screening was performed and scored. Patient was asked about alcohol use. Advised about risks of alcohol. Personal risk was assessed. Patient agreed to plan and given information about available resources if needed. Discussion including screening and scoring greater than 7.5 minutes. Family Planning:Using control IUD 03/14/2453yo wellnessNo personal or family health status change Currently on disabilitySpends time with friends and goes out to dinner Lives with son (20), Mac Cornelius-Kyler syndromeNo mammograms, has implants -Diet: sitting around eating too much , motivated by her son who is starting to eat well-Activity: better in warmer weather, walking 10/20/22Wellness Visit Diet - well balanced, maintainedExercise - no exerciseSleep - some difficulty falling asleep, wakes up restedMood - up and down, recent cancer dx LMP more irregular, not for a few months, likely yordy-menopausalHot flashesMirena small cell lung cancersurgery scheduled to biopsy lymph nodes 11[facility]02[facility], new patient visiton 150 mcg levothyroxine spot on stomachseeing dermatology [facility] ruptured breast implants sister and son (19) very supportive, advocates RENETTA STEWART NP [address] [place], [address], [facility] 03/14/2024 12:10:42 08/07/2024 text/html 08/07/24 Pt here c/o of R leg/ holland infection- pt went to on tuesday culture was taken and positive for MRSA. PT has been taking doxycycline for 2 days now- seems to be helping, pt wants to make suretolerating doxycycline wellno fevertender area - states it was an abscess and drainedredness is somewhat betterno fever Jonas Puga MD [address] [place] [address], [phone], [facility] 08/08/2024 04:43:16 08/10/2024 text/html 08/10/24ere for MRSA wound follow up R leg injury last 08/01tried to pop what she thought was an ingrown hairwent to and was prescribed keflex, didn't helpnow on doxycycline, has 2.5 days left, started it has been improving on meds but redness is now outside the lineno fevers, feeling better Patient has agreed to allow the participation of a professional student in today? s visit. This consent allows for a professional student to: gather medical history, review present medications, review past medical history and complaints, perform non-sensitive parts of physical exam without supervising practitioner present, and participate in discussion with patient and practitioner of diagnosis and treatment plans. Student name: Kenny Type: {{ADELA MORALES BULB PACKER PA* ALEJANDRO QUEVEDO}} 08/07/24 Pt here c/o of R leg/ holland infection- pt went to on tuesday culture was taken and positive for MRSA. PT has been taking doxycycline for 2 days now- seems to be helping, pt wants to make suretolerating doxycycline wellno fevertender area - states it was an abscess and drainedredness is somewhat betterno fever RICKY Gómez [address] [place], [address], [facility] 08/10/2024 12:06:24 08/14/2024 text/html 08/14/24ere for wound f/u finished doxycyclinestill taking levofloxacin 08/10 - 4 doses leftfeels wound is improving overallless red, no inside circleno drainage from wound anymoreno fevers Patient has agreed to allow the participation of a professional student in today? s visit. This consent allows for a professional student to: gather medical history, review present medications, review past medical history and complaints, perform non-sensitive parts of physical exam without supervising practitioner present, and participate in discussion with patient and practitioner of diagnosis and treatment plans. Student name: Kenny Type: {{ADELA GARCÍA* ALEJANDRO QUEVEDO}} 08/10/24ere for MRSA wound follow up R leg injury last 08/01tried to pop what she thought was an ingrown hairwent to and was prescribed keflex, didn't helpnow on doxycycline, has 2.5 days left, started it has been improving on meds but redness is now outside the lineno fevers, feeling better Patient has agreed to allow the participation of a professional student in today? s visit. This consent allows for a professional student to: gather medical history, review present medications, review past medical history and complaints, perform non-sensitive parts of physical exam without supervising practitioner present, and participate in discussion with patient and practitioner of diagnosis and treatment plans. Student name: Kenny Type: {{ADELA ALLEN MD}} 08/07/24 Pt here c/o of R leg/ holland infection- pt went to on tuesday culture was taken and positive for MRSA. PT has been taking doxycycline for 2 days now- seems to be helping, pt wants to make suretolerating doxycycline wellno feverhopi [facility] area - states it was an abscess and drainedredness is somewhat betterno fever RICKY Gómez [address] [place], [address], [facility] 08/14/2024 12:14:05 03/11/2025 text/html 03/11/25 -noticed new lump on her mid-spine just last week-not painful-never had a lump like this before-no other associated symptoms RENETTA STEWART NP [address] [place] [address], [place], [address], [facility] 03/11/2025 11:24:07 OBGyn Episode No OBEpisode recorded.
--- NOTE | 2025-03-11 14:59 | MHC.AU.HA3 ---
Hearing Instrument Follow-Up- Binaural Date of Visit: 03/11/25 Right Ear: Brayan, Model, Color, Serial Number: Ayad Dodd L70-R SN: [id number] Color: Sand Beige [employer] Repair Warranty: 10/11/2026 [employer] Driver Loss and Damage Warranty: 10/11/2026 [facility] Service Plan: 07/25/2024 Battery Size: Rechargeable Utilization Review Nurse/Slim Tube: 1M Earmold/Dome/CShell/SlimTip:Small open dome (no retention tail) Type of Wax Guard: CeruShield Dispensed By: [facility] Date of Fittin07/25/2023 Left Ear: Brayan, Model, Color, Serial Number: Ayad Dodd L70-R SN: [id number] Color: Sand Beige [employer] Driver Repair Warranty: 10/11/2026 [employer] Loss and Damage Warranty: 10/11/2026 [facility] Service Plan: 07/25/2024 Battery Size: Rechargeable Utilization Review Nurse/Slim Tube: 1M Earmold/Dome/CShell/SlimTip: Small open dome (no retention tail) Type of Wax Guard: CeruShield Dispensed By: [facility] Date of Fittin07/25/2023 Follow-Up Summary: Elsa reports her left hearing aid has sounded weak for about a month. Cleaned aids, replaced domes and wax guards, vacuumed microphone ports. Listening check positive. Both aids amplifying well. Elsa reports improvement. Reviewed wax guard change procedure. Recommendations: Recommendations: Hearing instrument follow-up or maintenance as needed. Diagnosis Code(s): Primary Diagnosis: H90.3 Bilateral Sensorineural Hearing Loss Signature: Provider: Narayan Sánchez, [facility]
== END 2025-03-11 14:28 | disposition home or self-care (01) ==
LOC: HO.HAP 14:27
PROVIDERS: Visit Provider Otolaryngology
DX: Z46.1 Encounter for fitting and adjustment of hearing aid (principal); H90.3 Sensorineural hearing loss, bilateral
CPT/HCPCS: 92593; 99499

== ENCOUNTER 2025-03-11 14:47 | Outpatient (REF) | payer SELFPAY ==
--- OUTSIDE RECORDS SUMMARY | 2025-03-11 14:50 | XMS_ITS | Continuity of Care Document ---
Author Name [facility] Organization [facility] Care Team Providers Care Pharmacy Technician Program Director Name Role Phone [facility] Unavailable Unavailable Social History Combined list of available smoking, tobacco, and other social history from Department of Defense and Veterans Affairs facilities. Social History Type Response Date Comment Sourc e This section is an empty social history section. [facility]
== END 2025-03-11 14:48 | disposition home or self-care (01) ==
LOC: HO.HAP 14:47
PROVIDERS: Visit Provider Otolaryngology
DX: Z46.1 Encounter for fitting and adjustment of hearing aid (principal)
CPT/HCPCS: V5267

== ENCOUNTER 2025-09-25 13:58 | Outpatient (REF) | payer MEDICARE, MEDICAID, SELFPAY ==
--- OUTSIDE RECORDS SUMMARY | 2025-09-22 01:42 | XMS_ITS | Encounter Summary ---
Author Organization [facility] Address [address] [employer] [facility] [address] [place] [address] Phone Care Team Providers Care Tourist Adviser Name Role Phone Jin Rajan MD Unavailable Alex Rider DO Unavailable Juan Du MD Unavailable Khadar Forde MD Unavailable [phone] Yasmeen Dixon RN Unavailable [email or web address] Yusef Beck MBBS Unavailable Isis Borges STAFF INTERPRETER Primary Care Provider Romain Cheng MD, PhD Unavailable Elizabet Quigley MD, PhD Unavailable Reason for Visit * Reason Comments Ingestion Alcohol Intoxication Encounter Details Date Type Department Care Team (Late st Contact Info) Description 09/22/2025 1:42 AM EST - 09/22/2025 3:19 AM EST Emergency [facility] [address] [place] [address] Dominic Britton, DO [address] [place] [address] [email or web address] Discharge Disposition: Home or Self Care Social History Tobacco Use Types Packs/Day Years Used Date Smoking Tobacco: Never Smokeless Tobacco: Never Alcohol Use Standard Drinks/Week Comments Yes 2 (1 standard drink = 0.6 oz pur e alcohol) occ social use Home Health Assessment: Transportation Answer Date Recorded Lack of Transportation (Medical) Yes 06/19/2025 Lack of Transportation (Non-Medical) Yes 06/19/2025 Patient Unable or Declines to Respond No 06/19/2025 Education Answer Date Recorded Are you interested in more education? Not on donna e 02/24/2023 Are you concerned about learning? Not on file 02/24/2023 No 02/24/2023 No 02/24/2023 Digital Access Answer Date Recorded No 03/24/2023 No 03/24/2023 Reliable internet access at home? Not on file 03/24/2023 Device with a working camera? Not on file Intimate Partner Violence Answer Date R ecorded Are you denied basic needs s uch as food, clothing, or medical care? No 09/21/2025 In the past 12 months have y ou been in a relationship with a person who hurts, threatens, or tries to control you? No 09/21/2025 Are you denied basic needs s uch as food, clothing, or medical care? No 09/21/2025 In the past 12 months have y ou been in a relationship with a person who hurts, threatens, or tries to control you? No 09/21/2025 Comments No Sex and Gender Information Value Date Recorded Sex Assigned at Female 11/02/2022 12:35 PM EST Legal Sex Female 11:48 AM EDT Gender Identity Female 11/02/2022 12:35 PM EST Sexual Orientation Straight 11/02/2022 12 :35 PM EST documented as of this encounter Last Filed Vital Signs Vital Sign Reading Time Taken Comments Blood Pressure 120/82 09/22/2025 3:12 AM EST Pulse 70 09/22/2025 3:12 AM EST Temperature 35.5 C (95.9 F) 09/22/2025 1:31 AM EST Respiratory Rate 16 09/22/2025 3:12 AM EST Oxygen Saturation 96% 09/22/2025 3:12 AM EST Inhaled Oxygen Concentration - - Weight - - Height - - Body Mass Index - - documented in this encounter Functional Status * Calculated C-SSRS Risk Score (Lifetime/Recent) Answer Date of Assessment Author No Risk Indicated 09/21/2025 11:40 PM EST Tatiana Kowalski RN * Sterling Suicide Severity Rating Scale (Screener/Recent Self-Report) Question Answer Date of Assessment Author 1. Wish to be (Past 1 Month) No 09/21/2025 11:40 PM EST Zakiya Ward RN 2. Non-Specific Active Suicidal Thoughts (Past 1 Month) No 09/21/2025 11:40 PM Zakiya Mohr RN 6. Suicidal Behavior (Lifetime) No 09/21/2025 11:40 PM EST Zakiya Ward RN documented as of this encounter Discharge Instructions * Discharge Instructions* Dominic Britton DO - 09/22/2025 3:03 AM EST Return for any further concerning symptoms * Attachments The following attachments cannot be sent through Care Everywhere. * Nausea and Vomiting (Croatian) documented in this encounter Medications at Time of Discharge acetaminophen (TYLENOL) 500 MG tablet Take 500 mg by mouth every 6 (six) hours as needed for pain (specific location in comments). 05/11/2025 citalopram (CELEXA) 40 MG tablet Take 40 mg by mouth daily. 04/17/2021 levothyroxine (SYNTHROID, LEVOTHROID) 137 MCG tablet Take 137 mcg by mouth daily. 05/25/2021 oxyCODONE 5 MG immediate release tabletIndication s:Post-op pain Take 1 tablet (5 mg total) by mouth every 6 (six) hours as needed for pain (specific location in comments) (s/p resection of back sarcoma, pain at drain site). 5 tablet 06/04/2025 documented as of this encounter ED Notes * Melissa Trivedi, ADELA - 09/22/2025 2:36 AM EST ED Rapid Assessment Nursing Note Pt BIBA from home wherre she was drinking etoh tonight and tried a zyn nicotine pouch for the firsttime. Pt states she began to feel very nauseous and began throwing up after taking the zyn. Pt appears intoxicated but axox4. Ambulatory w steady gait independently to the bathroom. Endorses nausea. No other complaints a this time. Given zofran for nausea * Tatiana Ward RN - 09/21/2025 11:45 PM EST Pt BIB[facility] from [facility] for [facility]V dizziness after trying a Zyn nicotine pouch for the first time. Was drinking etoh tonight. Pt aox4, sitting in wheelchair vomiting. Reports feeling well up until the zyn. Denies any falls/numbness/tingling. * Dominic Britton DO - 09/21/2025 11:34 PM EST Chief Complaint Chief Complaint Patient presents with Ingestion Alcohol Intoxication History of Present Illness The patient, Elsa Henley,is a 54 y.o. female who presents for evaluation of Ingestion and Alcohol Intoxication 54-year-old female presents for evaluation of nausea, vomiting. She states that she was at a bar. Had a couple of drinks. States that shortly after that she tried a nicotine packet for the first timeever. Since doing that has had intermittent obstructive lightheadedness but primarily nausea and vomiting no abdominal pain no diarrhea. Denies any chest pain, shortness of breath palpitations Unless otherwise specified, I have reviewed and agree with the triage and nursing notes. ROS A ten point review of systems was negative except what was noted in the HPI. 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 Migraine Motion sickness PONV (postoperative nausea and vomiting) Post-operative nausea and vomiting Pulmonary embolus 02/04/2024 Snoring Solitary kidney, acquired Thyroid cancer 2005 total thyroidectomy and I-131 Past Surgical History Past Surgical History: Procedure Laterality Date abdominal wall reconstruction 12/10/2008 complicated by delayed wound closure ADRENALECTOMY Left 07/15/2005 BREAST SURGERY 2005 BRONCHOSCOPY FLEXIBLE N/A 11/02/2022 Performed by Francesco Lucas MD at [facility] OR SECTION COLONOSCOPY N/A 11/28/2017 Performed by Pineda Nielson MD at [facility] ENDOSCOPY COSMETIC SURGERY 2004 Breast implants EXCHANGE IMPLANT BREAST BILATERAL and capsulectomy/capsulotomy Bilateral 06/22/2023 Performed by Mimi Perkins MD, MS at [facility] OR MASTECTOMY Bilateral 05/13/2006 MEDIASTINOSCOPY N/A 11/02/2022 Performed by Francesco Lucas MD at [facility] OR NEPHRECTOMY Left 10/21/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 Oliva, [facility]) RESECTION RIB PARTIAL Left 01/12/2008 Left 11th rib - benign lesion RESECTION SARCOMA BACK Left 05/09/2025 Performed by Elizabet Quigley MD, PhD at [facility] OR REVISION RECONSTRUCTED BREAST Right 03/28/2008 SPLENECTOMY THORACOSCOPY VIDEO ASSISTED LOBECTOMY, LEFT UPPER LOBE WEDGE, COMPLETION LEFT UPPER LOBECTOMY Left 11/02/2022 Performed by Francesco Lucas MD at [facility] OR TOTAL THYROIDECTOMY 10/07/2005 for papillary thyroid cancer WIDE EXCISION SARCOMA RIGHT THIGH Right 08/20/2022 Performed by Rocky Roche MD at [facility] OR Home Medications Prior to Admission medications Medication Sig acetaminophen (TYLENOL) 500 MG tablet 500 mg, Oral, Every 6 hours PRN citalopram (CELEXA) 40 MG tablet 40 mg, Daily levothyroxine (SYNTHROID, LEVOTHROID) 137 MCG tablet 137 mcg, Daily oxyCODONE 5 MG immediate release tablet 5 mg, Oral, Every 6 hours PRN Allergies Allergies Allergen Reactions Oxycodone Unknown and Nausea and/or Vomiting Converted from Generic Allergy: Percocet Bactrim [Sulfamethoxazole-Trimethoprim] Rash Social and Family History Social History Tobacco Use Smoking status: Never Smokeless tobacco: Never Substance Use Topics Alcohol use: Yes Alcohol/week: 2.0 standard drinks of alcohol Types: 2 Standard drinks or equivalent per week Comment: occ social use Social History Substance and Sexual Activity Drug Use No Family History Problem Relation Age of Onset Thyroid disease Mother Other Father renal failure Cancer Maternal Aunt breast cancer Dementia Maternal Grandmother Cancer Maternal Grandfather Cancer Paternal Grandmother lung cancer Lung cancer Paternal Grandmother Physical Exam Vital Signs: ED Triage Vitals [09/21/25 2339] Encounter Vitals Group BP (!) 137/90 Girls Systolic BP Percentile Girls Diastolic BP Percentile Boys Systolic BP Percentile Boys Diastolic BP Percentile Heart Rate 89 Respiratory Rate 18 Temperature 35.8 ??C (96.4 ??F) Temp src SpO2 97 % Weight Height Head Circumference Peak Flow Pain Score Pain Loc Pain Education Exclude from Growth Chart Physical Exam General: Well Nourished, Well Developed, holding an emesis bag HENT: Normocephalic, Atraumatic Eyes: Pupils equal, EOM Intact Cardiovascular: Normal Rate, Normal Rhythm, Good Distal Perfusion Pulmonary: Normal Effort, symmetric chest rise Abdominal: Soft, Non-tender, Non-distended MSK: Normal ROM Skin: Intact, Dry Neurological: Alert, Orientated x 3 Psych: Normal Mood and Affect Laboratory Testing Results for orders placed or performed during the hospital encounter of 09/22/25 POCT Glucose Result Value Ref Range Glucose 126 (H) 70 - 99 mg/dL Radiology Testing No orders to display ED Medication from 09/21/2025 2333 to 09/22/2025 0303 Date/Time Order Dose Route Action Action by Comments 09/21/20252338 EST ondansetron (ZOFRAN-ODT) disintegrating tablet 4 mg 4 mg Oral Given Tatiana Ward RN -- 09/22/2025 0233 EST ondansetron (ZOFRAN-ODT) disintegrating tablet 4 mg 4 mg Oral Given Melissa Trivedi RN -- 09/22/2025 0233 EST famotidine (PEPCID) tablet 20 mg 20 mg Oral Given Melissa Trivedi RN -- MDM MDM Patient presents for evaluation of symptoms described above. Suspect likely adverse effect of combination of alcohol and nicotine. Feeling mildly improved after ondansetron orally but still having some residual nausea. Will provide additional dose as well as Pepcid and attempt p.o. trial. Her abdomen is benign on exam. Given associated lightheadedness will obtain EKG however concern for cardiogenic etiology is less likely given lack of associated chest pain, shortness of breath or palpitations.At this time do not feel that systemic labs are indicated as patient able to maintain p.o. intake. ED Course as of 09/22/25 0303 Sun Sep 22, 2025 0237 EKG demonstrates normal sinus rhythm. No acute ischemic or infarctive changes no arrhythmia orPredisposing morphology present. [JS] ED Course User Index [JS] Dominic Britton DO Clinical Impressions as of 09/22/25 030 Nicotine use Nausea and vomiting, unspecified vomiting type Clinical Impression Diagnosis Description Comment Final diagnoses Nicotine use Nicotine use -- Nausea and vomiting, unspecified vomiting type Nausea and vomiting, unspecified vomiting type -- Disposition: Home Dominic Britton DO 09/22/25 030 documented in this encounter Plan of Treatment Upcoming Encounters Date Type Department Care Team (Late st Contact Info) Description 10/18/2025 3:20 PM EST [facility] [address] [place] [address], 9th Floor, [address] [place] [address] Greyson Gilbert MD, PhD [address] [address] [email or web address] Scheduled Procedures Name Priority Associated Diagnoses Date/Ti me 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 documented as of this encounter Procedures Procedure Name Priority Date/Time Associated Diagnosis Comments ECG 12-LEAD STAT 09/22/2025 2:30 AM EST POCT GLUCOSE STAT 09/21/2025 11:43 PM EST documented in this encounter Results * ECG 12-LEAD (09/22/2025 2:30 AM EST) Ventricular Rate EKG/MIN 80 BPM [facility] Atrial Rate 80 BPM [facility] NE Interval 198 ms [facility] QRS Duration 86 ms [facility] QT Interval 430 ms [facility] QTC Interval 495 ms [facility] P Cameron 53 degrees [facility] R Wave Cameron 0 degrees [facility] T Wave Cameron -1 degrees [facility] 09/22/2025 2:30 AM EST 09/22/2025 10:07 AM EST Narrative [facility] - 09/22/2025 10:07 AM EST Normal sinus rhythm Possible Inferior infarct , age undetermined Possible Anterior infarct , age undetermined Abnormal ECG When compared with ECG of 17-Jan-2024 18:35, QT has lengthened Confirmed by Donald Cano ([id number]) on 09/22/2025 10:07:14 AM us Dominic Britton DO ECG ORDERABLES Final Result Performing Organization Address City/[facility]/ZIP Co de Phone Number [facility] * (ABNORMAL) POCT Glucose (09/21/2025 11:43 PM EST) Glucose 126(H) 70 - 99 mg/dL 09/21/2025 11:49 PM EST [facility] Blood (Blood) 09/21/2025 11: 43 PM EST 09/21/2025 11:49 PM EST us Unknown Unknown MD LAB POCT DOCKED DEVICE UNSOLI CTED RESULTS Final Result Performing Organization Address [facility] de Phone Number [address] [address] documented in this encounter Visit Diagnoses Diagnosis Nicotine use- Primary Nausea and vomiting, unspecified vomiting type documented in this encounter Administered Medications Inactive Administered Medications - up to 3 most recent administrations Medication Order MAR Action Action Date Dose Rate Site famotidine (PEPCID) tablet 20 mg 20 mg, Oral, Once, On 09/22/25 at 0230, For 1 dose Given 09/22/2025 2:33 AM EST 20 mg ondansetron (ZOFRAN-ODT) disintegrating tablet 4 mg 4 mg, Oral, Once, On 09/21/25 at 2345, For 1 dose, Do not remove from blister until needed. Peel backing off the blister, do not push tablet through. Using dry hands, place tablet on tongue and allow to dissolve. Swallow with saliva. Given 09/21/2025 11:39 PM EST 4 mg ondansetron (ZOFRAN-ODT) disintegrating tablet 4 mg 4 mg, Oral, Once, On 09/22/25 at 0230, For 1 dose Given 09/22/2025 2:33 AM EST 4 mg documented in this encounter Active and Recently Administered Medications Times are shown in EST. Scheduled Medication Order 09/20/2025 09/21/2025 09/22/2025 famotidine (PEPCID) tablet 20 mg (COMPLETED) 20 mg, Oral, Once, On 09/22/25 at 0230, For 1 dose 0233 (Given - Provid er: Melissa Trivedi RN) ondansetron (ZOFRAN-ODT) disintegrating tablet 4 mg (COMPLETED) 4 mg, Oral, Once, On 09/21/25 at 2345, For 1 dose, Do not remove from blister until needed. Peel backing off the blister, do not push tablet through. Using dry hands, place tablet on tongue and allow to dissolve. Swallow with saliva. 2339 (Given - Provider: Tatiana Ward RN) ondansetron (ZOFRAN-ODT) disintegrating tablet 4 mg (COMPLETED) 4 mg, Oral, Once, On 09/22/25 at 0230, For 1 dose 0233 (Given - Provid er: Melissa Trivedi RN) documented in this encounter Additional Health Concerns Infection Onset Date Last Indicated Resolved Time MRSA 08/03/2024 06/03/2025 documented as of this encounter Care Teams Tourist Adviser Relationship Specialty Start Date End Date Isis Borges NP [address] [place] [address] PCP - General Nurse Practitioner 06/11/24 Jin Rajan MD Family Medicine 07/14/21 Alex Rider DO [address] [place] [address] [email or web address] Primary Oncologist Hematology and Oncology 09/17/22 Juan Du MD [address] [facility] [address] [place] [phone] [email or web address] Primary Oncologist Medical Oncology 10/08/22 Khadar Forde MD [address] [facility] [address] [place] [address] [email or web address] Radiation Oncology 10/10/22 Yasmeen Dixon, RN [address] [place] [address] [email or web address] Primary Infusion Nurse 12/09/22 Yusef Beck MBBS [address] [place] [address] [email or web address] Medical Oncology 01/31/24 Romain Cheng MD, PhD [address] [place] [address] [place] [address] [email or web address] Medical Oncology 05/12/25 Elizabet Quigley MD, PhD [address] [place] [address] ya[address] [place] [phone] [email or web address] Surgical Oncology 04/24/25 documented as of this encounter Additional Source Comments The information contained in this document represents components of the legal health record. It is not the complete legal health record.[facility]
--- OUTSIDE RECORDS SUMMARY | 2025-09-25 17:00 | XMS_ITS | Encounter Summary ---
Author Organization [facility] Address [address] [address] Phone Care Team Providers Care Funeral Pre Arrangement Specialist Name Role Phone Jin Rajan MD Unavailable [phone] Becca Stubbs NP Unavailable [phone] Nora Hood MD Unavailable [phone] Becca Stubbs NP Primary Care Provider [phone] Alex Rider DO Unavailable [phone] Juan Du MD Unavailable [phone] Yasmeen Dixon RN Unavailable [email or web address] Khadar Forde MD Unavailable [phone] Jody Fleming RN Unavailable [email or web address] Yasmeen Dixon RN Unavailable [email or web address] .[facility] Jonas Coleman MD Primary Care Prov ider Alicia Franco FIELD WORKER Unavailable [phone] Roxana Fuchs RN Unavailable [phone] Mirlande Mai Unavailable [email or web address] Dawna Baugh [facility] Unavailable [phone] Jin Rajan MD Primary Care Provider [phone] Yusef Beck MBBS Unavailable Alicia Franco FIELD WORKER Unavailable [phone] Isis Borges GOVERNMENT TEACHER Primary Care Provider Romain Cheng MD, PhD Unavailable Elizabet Quigley MD, PhD Unavailable [phone] Encounter Details Date Type Department Care Team (Late Contact Info) Description 09/16/2022 Procedure Pass [facility] Imaging - RF/IR [address] [place] [address] Social History Tobacco Use Types Packs/Day Years Used Date Smoking Tobacco: Never Smokeless Tobacco: Never Alcohol Use Standard Drinks/Week Comments Yes 2 (1 standard drink = 0.6 oz pur e alcohol) occ Comments Unknown Sex and Gender Information Value Date Recorded Sex Assigned at Female 11/02/2022 12:35 PM EST Legal Sex Female 11:48 AM EDT Gender Identity Female 11/02/2022 12:35 PM EST Sexual Orientation Straight 11/02/2022 12 :35 PM EST documented as of this encounter Plan of Treatment Upcoming Encounters Date Type Department Care Team (Late Contact Info) Description 10/18/2025 3:20 PM EST Office [facility] [address] [facility], 9th Floor, [address] [place] [address] Greyson Gilbert MD, PhD [address] [address] [email or web address] Scheduled Procedures Name Priority Associated Diagnoses Date/Ti me 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 documented as of this encounter Visit Diagnoses Not on filedocumented in this encounter Additional Health Concerns Infection Onset Date Last Indicated Resolved Time CoV-Presumed Comment:Per Note Documentation 09/28/2022 09/27/2022 2 4:26 PM EST CoV-Risk Comment:Per note documentation 12/28/2022 12/28/2022 3 9:53 AM EST CoV-Risk 12/07/2023 12/07/2023 12/18/2023 1:22 AM EST CoV-Risk 12/31/2023 12/31/2023 01/11/2024 1:22 AM EDT MRSA 08/03/2024 06/03/2025 documented as of this encounter Care Teams Funeral Pre Arrangement Specialist Relationship Specialty Start Date End Date Becca Stubbs NP [address] [place] [phone] PCP - General Nurse Practitioner 05/08/22 04/27/23 Jonas Coleman MD [address] [place] [address] [email or web address] PCP - General Family Medicine 04/28/23 12/30/23 Jin Rajan MD [address] [place] [phone] [email or web address] - General Family Medicine 12/31/23 06/10/24 Isis Borges NP [address] [place] [address] PCP - General Nurse Practitioner 06/11/24 Jin Rajan MD [email or web address] Medicine 07/14/21 Becca Stubbs NP [address] [place] [address] Primary Care Physician 01/27/1610/12 Nora Hood MD [address] [place] [address] [email or web address] Primary Oncologist Medical Oncology 12/19/20 09/16/22 Alex Rider DO [address] [place] [address] [email or web address] Primary Oncologist Hematology and Oncology 09/17/22 Juan Du MD [address] [place] [address] [address] [place] [phone] [email or web address] Primary Oncologist Medical Oncology 10/08/22 Yasmeen Dixon, ADELA [address] [place] [address] [email or web address] Primary Infusion Nurse 10/08/22 11/23/22 Khadar Forde MD [address] [place] [address] [email or web address] [email or web address] Oncology 10/10/22 Jody Fleming RN [address] [place] [address] [email or web address] Primary Infusion Nurse 11/24/22 12/08/22 Yasmeen Dixon RN [address] [place] [address] [email or web address] Primary Infusion Nurse 12/09/22 Alicia Franco, FIELD WORKER [address] [place] [address] [email or web address] [employer] Services Coordinator Nurse Practitioner 09/26/2310/01 Roxana Fuchs RN [facility] [place] [address] [email or web address] [employer] Food Services Coordinator 09/26/23 10/26/23 Mirlande Mai [address] [place] [address] [email or web address] Community Health Worker 09/26/23 10/26/23 Dawna Baugh, [facility] [address] [place] [address] [email or web address] [employer] Talent Management Manager 09/26/23 10/26/23 Yusef Beck MBBS [address] [place] [phone] [email or web address] Medical Oncology 01/31/24 Alicia Franco CNP [address] [place] [address] [email or web address] [employer] Services Coordinator Nurse Practitioner 05/14/2406/24 Romain Cheng MD, PhD [address] [place] [address] [email or web address] Medical Oncology 05/12/25 Elizabet Quigley MD, PhD [address] [place] [phone] [email or web address] Surgical Oncology 04/24/25 documented as of this encounter Additional Source Comments The information contained in this document represents components of the legal health record. It is not the complete legal health record.[facility]
--- OUTSIDE RECORDS SUMMARY | 2025-09-25 17:00 | XMS_ITS | Encounter Summary ---
Author Organization [facility] Address [address] [facility] [address] [place] [address] Phone Care Team Providers Care High Pressure Kettle Operator Name Role Phone Jin Rajan MD Unavailable [phone] Alex Rider DO Unavailable [phone] Juan Du MD Unavailable [phone] Khadar Forde MD Unavailable [phone] Yasmeen Dixon RN Unavailable Al [email or web address] Jin Rajan MD Primary Care Provider [phone] Yusef Beck MBBS Unavailable [phone] Alicia Franco ANTIQUE JEWELRY REPAIRER Unavailable [phone] Iiss Borges NP Primary Care Provider Romain Cheng MD, PhD Unavailable [phone] Elizabet Quigley MD, PhD Unavailable [phone] Encounter Details Date Type Department Care Team (Late st Contact Info) Description 03/15/2024 Procedure Pass [facility], Ct Scan - [address] [address] Social History Tobacco Use Types Packs/Day Years Used Date Smoking Tobacco: Never Smokeless Tobacco: Never Alcohol Use Standard Drinks/Week Comments Yes 2 (1 standard drink = 0.6 oz pur e alcohol) occ social use Education Answer Date Recorded Are you interested [...] as food, clothing, or medical care? No 02/08/2024 In the past 12 months have y ou been in a relationship with a person who hurts, threatens, or tries to control you? No 02/08/2024 Are you denied basic needs s uch as food, clothing, or medical care? No 02/08/2024 In the past 12 months have y ou been in a relationship with a person who hurts, threatens, or tries to control you? 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 documented as of this encounter Visit Diagnoses Not on filedocumented in this encounter Additional Health Concerns Infection Onset Date Last Indicated Resolved Time MRSA 08/03/2024 06/03/2025 documented as of this encounter Care Teams High Pressure Kettle Operator Relationship Specialty Start Date End Date Jin Rajan MD 238 [place] [phone] [email or web address] PCP - General Family Medicine 12/31/23 06/10/24 Isis Borges, VALENTÍN 238 [place], [place] [phone] PCP - General Nurse Practitioner 06/11/24 Jin Rajan MD [email or web address] Family Medicine 07/14/21 Alex Rider DO 30 [place] [address] [email or web address] Primary Oncologist Hematology and Oncology 09/17/22 Juna Du MD 55 [facility] [address] [place] [phone] [email or web address] Primary Oncologist Medical Oncology 10/08/22 Khadar Forde MD 55 [facility] 3 [place] [address] [email or web address] Radiation Oncology 10/10/22 Yasmeen Dixon, ADELA 55 [place] [address] Anna@[email or web address] Primary Infusion Nurse 12/09/22 Yusef Beck MBBS [address] [place] [phone] [email or web address] Medical Oncology 01/31/24 SalvadorAlicia, ANTIQUE JEWELRY REPAIRER [address] [place] [phone] [email or web address] iCMP Plus Sericulture Teacher Nurse Practitioner 05/14/2406/24 Romain Cheng MD, PhD [address] [place] [address] [email or web address] Medical Oncology 05/12/25 Elizabet Quigley MD, PhD [address] [place] [phone] [email or web address] Surgical Oncology 04/24/25 documented as of this encounter Additional Source Comments The information contained in this document represents components of the legal health record. It is not the complete legal health record.[facility]
--- OUTSIDE RECORDS SUMMARY | 2025-09-25 17:00 | XMS_ITS | Encounter Summary ---
Author Organization [facility] Address [address] [facility] [address] [place] [address] Phone Care Team Providers Care Cigar Head Stringer Name Role Phone Jin Rajan MD Unavailable Alex Rider DO Unavailable [phone] Juan Du MD Unavailable Khadar Forde MD Unavailable [phone] Yasmeen Dixon RN Unavailable Al Sharona@[email or web address]. [facility] Yusef Beck MBBS Unavailable [phone] Isis Borges NP Primary Care Provider Romain Cheng MD, PhD Unavailable [phone] Elizabet Quigley MD, PhD Unavailable Encounter Details Date Type Department Care Team (Late st Contact Info) Description 03/20/2025 Procedure Pass [facility] MR Imaging, [place] [address] [place] [address] Social History Tobacco Use Types Packs/Day Years [...] EST Office [facility] [address] [place] [address], 9[address] [place] [address] Greyson Gilbert MD, PhD 55 [facility] 7E [place] [address] Scheduled Procedures Name Priority Associated Diagnoses Date/Ti me 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 documented as of this encounter Visit Diagnoses Not on filedocumented in this encounter Additional Health Concerns Infection Onset Date Last Indicated Resolved Time MRSA 08/03/2024 06/03/2025 documented as of this encounter Care Teams Cigar Head Stringer Relationship Specialty Start Date End Date Isis Borges NP [address] [place] [address] PCP - General Nurse Practitioner 06/11/24 Jin Rajan MD [email or web address] Family Medicine 07/14/21 Alex Rider DO [address] [place] [address] [email or web address] Primary Oncologist Hematology and Oncology 09/17/22 Juan Du MD [address] [place] [address] 9E [place] [phone] [email or web address] Primary Oncologist Medical Oncology 10/08/22 Khadar Forde MD [address] [place] [address] 3 [place] [address] [email or web address] Radiation Oncology 10/10/22 Yasmeen Dixon, ADELA 55 [place], [place] [email or web address] Primary Infusion Nurse 12/09/22 Yusef Beck, REJI [address] [place] [address] [email or web address] Medical Oncology 01/31/24 Romain Cheng MD, PhD [address] [place] [address] [place] [address] [email or web address]@[facility] Medical Oncology 05/12/25 Elizabet Quigley MD, PhD [address] [place] [address] [place] [phone] [email or web address] Surgical Oncology 04/24/25 documented as of this encounter Additional Source Comments The information contained in this document represents components of the legal health record. It is not the complete legal health record.[facility]
--- OUTSIDE RECORDS SUMMARY | 2025-09-25 17:00 | XMS_ITS | Encounter Summary ---
Author Organization [facility] Address [address] [employer] [facility] [address] [place] [address] Phone Care Team Providers Care Private Equity Associate Name Role Phone Jin Rajan MD Unavailable [phone] Alex Rider DO Unavailable [phone] Juan Du MD Unavailable [phone] Khadar Forde MD Unavailable [phone] Yasmeen Dixon RN Unavailable Al Sharona@[email or web address]. [facility] Jin Rajan MD Primary Care Provider [phone] Yusef Beck MBBS Unavailable [phone] Alicia Franco CONDENSER SETTER Unavailable [phone] Isis Borges NP Primary Care Provider Romain Cheng MD, PhD Unavailable [phone] Elizabet Quigley MD, PhD Unavailable [phone] Encounter Details Date Type Department Care Team (Late st Contact Info) Description 03/15/2024 Procedure Pass [facility], [address] [address] Social History Tobacco Use Types Packs/Day Years [...] Office Visit [facility] 32 [facility], 9th Floor, [address] [place] [address] Greyson Gilbert MD, PhD 55 [facility] [address] [place] [address] [email or web address] Scheduled Procedures Name Priority Associated Diagnoses Date/Ti me 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 documented as of this encounter Visit Diagnoses Not on filedocumented in this encounter Additional Health Concerns Infection Onset Date Last Indicated Resolved Time MRSA 08/03/2024 06/03/2025 documented as of this encounter Care Teams Private Equity Associate Relationship Specialty Start Date End Date Jin Rajan MD 238 [place] [phone] [email or web address] PCP - General Family Medicine 12/31/23 06/10/24 Isis Borges, VALENTÍN 238 [place], [place] [phone] PCP - General Nurse Practitioner 06/11/24 Jin Rajan MD [email or web address] Family Medicine 07/14/21 Alex Rider DO 30 [place] [address] [email or web address] Primary Oncologist Hematology and Oncology 09/17/22 Juan Du MD 55 [facility] 9E [place] [phone] [email or web address] Primary Oncologist Medical Oncology 10/08/22 Khadar Forde MD 55 [facility] [place] [facility] 3 [place] [address] [email or web address] Radiation Oncology 10/10/22 Yasmeen Dixon, ADELA 55 [place] [address] [email or web address]@[email or web address] Primary Infusion Nurse 12/09/22 Yusef Beck MBBS [address] [place] [phone] [email or web address] Medical Oncology 01/31/24 SalvadorAlicia, CONDENSER SETTER [address] [place] [address] [email or web address] iCMP Plus Associate Professor Of Engineering Nurse Practitioner 05/14/2406/24 Romain Cheng MD, PhD [address] [place] [address] JENNIFER@[facility] Medical Oncology 05/12/25 Elizabet Quigley MD, PhD [address] [place] [phone] [email or web address] Surgical Oncology 04/24/25 documented as of this encounter Additional Source Comments The information contained in this document represents components of the legal health record. It is not the complete legal health record.[facility]
--- OUTSIDE RECORDS SUMMARY | 2025-09-25 17:00 | XMS_ITS | Encounter Summary ---
Author Organization [facility] Address [address] [employer] [facility] [address] [place] [address] Phone Care Team Providers Care Crimper Operator Name Role Phone Jin Rajan MD Unavailable [phone] Alex Rider DO Unavailable [phone] Juan Du MD Unavailable [phone] Khadar Forde MD Unavailable [phone] Yasmeen Dixon RN Unavailable Al Sharona@[email or web address]. [facility] Yusef Beck MBBS Unavailable [phone]OL Unavailable Isis Borges AIR CONDITIONING INSTALLER SUPERVISOR Primary Care Provider Romain Cheng MD, PhD Unavailable [phone] Elizabet Quigley MD, PhD Unavailable [phone] Encounter Details Date Type Department Care Team (Late st Contact Info) Description 06/15/2024 Procedure Pass [facility], Ct Scan - [address] [id number] Social History Tobacco Use Types Packs/Day Years [...] Office Visit [facility] 32 [facility], 9th Floor, [address] [place] [address] Greyson Gilbert MD, PhD 55 [facility] [address] [place] [address] [email or web address] Scheduled Procedures Name Priority Associated Diagnoses Date/Ti me 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 documented as of this encounter Visit Diagnoses Not on filedocumented in this encounter Additional Health Concerns Infection Onset Date Last Indicated Resolved Time MRSA 08/03/2024 06/03/2025 documented as of this encounter Care Teams Crimper Operator Relationship Specialty Start Date End Date Isis Borges NP 238 [place] [address] PCP - General Nurse Practitioner 06/11/24 Jin Rajan MD [email or web address] Family Medicine 07/14/21 Alex Rider DO 30 [place] [address] ELIO@[email or web address] Primary Oncologist Hematology and Oncology 09/17/22 Juan Du MD [address] [place] [address] 9[address] [place] [phone] [email or web address] Primary Oncologist Medical Oncology 10/08/22 Khadar Forde MD [address] [place] [address] [email or web address] Radiation Oncology 10/10/22 Yasmeen Dixon, RN [address] [place] [address] [email or web address]@[email or web address] Primary Infusion Nurse 12/09/22 Yusef Beck MBBS [address] [place] [address] [email or web address] Medical Oncology 01/31/24 Alicia Franco, [address] PATROL [address] [place] [address] [email or web address] iCMP Plus Cone Examiner Nurse Practitioner 05/14/2406/24 Romain Cheng MD, PhD [address] [address] [email or web address]@[facility] Medical Oncology 05/12/25 Elizabet Quigley MD, PhD [address] [place], [place] [address] [place] [phone] [email or web address] Surgical Oncology 04/24/25 documented as of this encounter Additional Source Comments The information contained in this document represents components of the legal health record. It is not the complete legal health record.[facility]
--- OUTSIDE RECORDS SUMMARY | 2025-09-25 17:00 | XMS_ITS | Encounter Summary ---
Author Organization [facility] Address 399 [facility] [address] [place] [address] Phone Care Team Providers Care Directional Survey Drafter Name Role Phone Jin Rajan MD Unavailable [phone] Alex Rider DO Unavailable [phone] Juan Du MD Unavailable Khadar Forde MD Unavailable Yasmeen Dixon RN Unavailable Al [email or web address] Yusef Beck MBBS Unavailable [phone] Isis Borges NP Primary Care Provider Romain Cheng MD, PhD Unavailable Elizabet Quigley MD, PhD Unavailable Encounter Details Date Type Department Care Team (Late st Contact Info) Description 03/20/2025 Procedure Pass [facility] MR Imaging, [place] [address] [place] [address] Social History Tobacco Use Types Packs/Day Years [...] EST Office Visit [facility] [address] [place] [address], 9th Floor, [address] [place] [address] Greyson Gilbert MD, PhD 55 [facility] [address] [place] [address] Scheduled Procedures Name Priority Associated Diagnoses Date/Ti me 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 documented as of this encounter Visit Diagnoses Not on filedocumented in this encounter Additional Health Concerns Infection Onset Date Last Indicated Resolved Time MRSA 08/03/2024 06/03/2025 documented as of this encounter Care Teams Directional Survey Drafter Relationship Specialty Start Date End Date Isis Borges NP [address] [place] [address] PCP - General Nurse Practitioner 06/11/24 Jin Rajan MD [email or web address] Family Medicine 07/14/21 Alex Rider DO [address] [place] [address] [email or web address] Primary Oncologist Hematology and Oncology 09/17/22 Juan Du MD [address] [place] [address] 9[address] [place] [phone] [email or web address] Primary Oncologist Medical Oncology 10/08/22 Khadar Forde MD [address] [place] [address] 3 [place] [address] [email or web address] Radiation Oncology 10/10/22 Yasmeen Dixon, ADELA 55 [place], [place] [email or web address] Primary Infusion Nurse 12/09/22 Yusef Beck, REJI [address] [place] [address] [email or web address] Medical Oncology 01/31/24 Romain Cheng MD, PhD [address] [place] [address] [place] [address] JENNIFER@[facility] Medical Oncology 05/12/25 Elizabet Quigley MD, PhD [address] [place] [address] [place] [phone] [email or web address] Surgical Oncology 04/24/25 documented as of this encounter Additional Source Comments The information contained in this document represents components of the legal health record. It is not the complete legal health record.[facility]
--- OUTSIDE RECORDS SUMMARY | 2025-09-25 17:00 | XMS_ITS | Encounter Summary ---
Author Organization [facility] Address [address] [facility] [address] [place] [address] Phone Care Team Providers Care Vp Product Marketing Name Role Phone Jin Rajan MD Unavailable Alex Rider DO Unavailable Juan Du MD Unavailable Khadar Forde MD Unavailable [phone] Yasmeen Dixon RN Unavailable Al Sharona@[email or web address]. [facility] Yusef Beck MBBS Unavailable Isis Borges NP Primary Care Provider Romain Cheng MD, PhD Unavailable Elizabet Quigley MD, PhD Unavailable [phone] Encounter Details Date Type Department Care Team (Late st Contact Info) Description 04/04/2025 Procedure Pass [facility] Imaging - RF/IR [address] [place] [address] Social History Tobacco Use Types Packs/Day Years [...] EST Office Visit [facility] [address] [place] [address], 9th Floor, [address] [place] [address] Greyson Gilbert MD, PhD 55 [facility] 7[address] [place] [address] Scheduled Procedures Name Priority Associated Diagnoses Date/Ti me 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 documented as of this encounter Visit Diagnoses Not on filedocumented in this encounter Additional Health Concerns Infection Onset Date Last Indicated Resolved Time MRSA 08/03/2024 06/03/2025 documented as of this encounter Care Teams Vp Product Marketing Relationship Specialty Start Date End Date Isis Borges NP 238 [place] [address] PCP - General Nurse Practitioner 06/11/24 Jin Rajan MD [email or web address] Family Medicine 07/14/21 Alex Rider DO [address] [place] [address] [email or web address]@[facility] Primary Oncologist Hematology and Oncology 09/17/22 Juan Du MD [address] [place] [address] [address] [place] [phone] [email or web address] Primary Oncologist Medical Oncology 10/08/22 Khadar Forde MD [address] [place] [address] 3 [place] [address] [email or web address] Radiation Oncology 10/10/22 Yasmeen Dixon, ADELA 55 [place], [place] [email or web address]@[email or web address] Primary Infusion Nurse 12/09/22 Yusef Beck, REJI [address] [place] [address] [email or web address] Medical Oncology 01/31/24 Romain Cheng MD, PhD [address] [place] [address] [place] [address] [email or web address]@[facility] Medical Oncology 05/12/25 Elizabet Quigley MD, PhD [address] [place] [address]7 [place] [phone] [email or web address]@[facility] Surgical Oncology 04/24/25 documented as of this encounter Additional Source Comments The information contained in this document represents components of the legal health record. It is not the complete legal health record.[facility]
--- OUTSIDE RECORDS SUMMARY | 2025-09-25 17:00 | XMS_ITS | Encounter Summary ---
Author Organization [facility] Address 399 [employer] [facility] [address] [place] [address] Phone Care Team Providers Care Key Punch Teacher Name Role Phone Jin Rajan MD Unavailable [phone] Alex Rider DO Unavailable [phone] Juan Du MD Unavailable [phone] Khadar Forde MD Unavailable [phone] Yasmeen Dixon RN Unavailable Al [email or web address]. [facility] Jin Rajan MD Primary Care Provider [phone] Yusef Beck MBBS Unavailable [phone] Alicia Franco DRY YARD WORKER Unavailable [phone] Isis Borges NP Primary Care Provider Romain Cheng MD, PhD Unavailable [phone] Elizabet Quigley MD, PhD Unavailable [phone] Encounter Details Date Type Department Care Team (Late st Contact Info) Description 03/15/2024 Procedure Pass [facility], Ct Scan - [address] [address] Social History Tobacco Use Types Packs/Day Years [...] Office Visit [facility] 32 [facility], 9th Floor, [address] [place] [address] Greyson Gilbert MD, PhD 55 [facility] [address] [place] [address] [email or web address] Scheduled Procedures Name Priority Associated Diagnoses Date/Ti me 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 documented as of this encounter Visit Diagnoses Not on filedocumented in this encounter Additional Health Concerns Infection Onset Date Last Indicated Resolved Time MRSA 08/03/2024 06/03/2025 documented as of this encounter Care Teams Key Punch Teacher Relationship Specialty Start Date End Date Jin Rajan MD [address] [place] [phone] [email or web address] PCP - General Family Medicine 12/31/23 06/10/24 Isis Borges, VALENTÍN [address] [place], [place] [phone] PCP - General Nurse Practitioner 06/11/24 Jin Rajan MD [email or web address] Family Medicine 07/14/21 Alex Rider DO 30 [place] [address] [email or web address] Primary Oncologist Hematology and Oncology 09/17/22 Juan Du MD 55 [facility] [address] [place] [phone] [email or web address] Primary Oncologist Medical Oncology 10/08/22 Khadar Forde MD 55 [facility] 3 [place] [address] [email or web address] Radiation Oncology 10/10/22 Yasmeen Dixon, ADELA 55 [place] [address] [email or web address]@[email or web address] Primary Infusion Nurse 12/09/22 Yusef Beck MBBS [address] [place] [phone] [email or web address] Medical Oncology 01/31/24 SalvadorAlicia, DRY YARD WORKER [address] [place] [phone] [email or web address] iCMP Plus Upholstery Auto Trimmer Nurse Practitioner 05/14/2406/24 Romain Cheng MD, PhD [address] [place] [address] [email or web address]@[facility] Medical Oncology 05/12/25 Elizabet Quigley MD, PhD [address] [place] [phone] [email or web address] Surgical Oncology 04/24/25 documented as of this encounter Additional Source Comments The information contained in this document represents components of the legal health record. It is not the complete legal health record.[facility]
--- OUTSIDE RECORDS SUMMARY | 2025-09-25 17:00 | XMS_ITS | Encounter Summary ---
Author Organization [facility] Address [address] [facility] [address] [place] [address] Phone Care Team Providers Care Ultrasonic Welding Machine Operator Name Role Phone Jin Rajan MD Unavailable Alex Rider DO Unavailable [phone] Juan Du MD Unavailable [phone] Khadar Forde MD Unavailable [phone] Yasmeen Dixon RN Unavailable Al Sharona@[facility].[place]. [facility] Yusef Beck MBBS Unavailable [phone] Alicia Franco CLINICAL TECHNICIAN Unavailable Isis Borges DIDACTIC INSTRUCTOR Primary Care Provider Romain Cheng MD, PhD Unavailable [phone] Elizabet Quigley MD, PhD Unavailable [phone] Encounter Details Date Type Department Care Team (Late st Contact Info) Description 06/15/2024 Procedure Pass [facility], Ct Scan - [address] [id number] Social History Tobacco Use Types Packs/Day Years [...] Office Visit [facility] 32 [facility], 9th Floor, [address] [place] [address] Greyson Gilbert MD, PhD 55 [facility] [address]E [place] [address] [email or web address] Scheduled Procedures Name Priority Associated Diagnoses Date/Ti me 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 documented as of this encounter Visit Diagnoses Not on filedocumented in this encounter Additional Health Concerns Infection Onset Date Last Indicated Resolved Time MRSA 08/03/2024 06/03/2025 documented as of this encounter Care Teams Ultrasonic Welding Machine Operator Relationship Specialty Start Date End Date Isis Borges NP 238 [place] [address] PCP - General Nurse Practitioner 06/11/24 Jin Rajan MD [email or web address] Family Medicine 07/14/21 Alex Rider DO 30 [place] [address] [email or web address] Primary Oncologist Hematology and Oncology 09/17/22 Juan Du MD [address] [place] [address] 9[address] [place] [phone] [email or web address] Primary Oncologist Medical Oncology 10/08/22 Khadar Forde MD [address] [place] [address] [email or web address] Radiation Oncology 10/10/22 Yasmeen Dixon, RN [address] [place] [address] [email or web address] Primary Infusion Nurse 12/09/22 Yusef Beck MBBS [address] [place] [address] [email or web address] Medical Oncology 01/31/24 Alicia Franco, CLINICAL TECHNICIAN [address] [place] [address] [email or web address] iCMP Plus Director Of Extension Work Nurse Practitioner 05/14/2406/24 Romain Cheng MD, PhD [address] [address] [email or web address] Medical Oncology 05/12/25 Elizabet Quigley MD, PhD [address] [place], [place] [address] [place] [phone] [email or web address] Surgical Oncology 04/24/25 documented as of this encounter Additional Source Comments The information contained in this document represents components of the legal health record. It is not the complete legal health record.[facility]
--- OUTSIDE RECORDS SUMMARY | 2025-09-25 17:01 | XMS_ITS | Encounter Summary ---
Author Organization [facility] Address [address] [address] Phone Care Team Providers Care Mold Cleaning And Storage Supervisor Name Role Phone Jin Rajan MD Unavailable [phone] Alex Rider DO Unavailable [phone] Juan Du MD Unavailable [phone] Khadar Forde MD Unavailable [phone] Yasmeen Dixon RN Unavailable Al [email or web address] Jonas Coleman MD Primary Care Prov ider Alicia Franco BUILDING MAINTENANCE ENGINEER Unavailable [phone] Roxana Fuchs RN Unavailable [phone] Mirlande Mai Unavailable [email or web address] Dawna Baugh [facility] Unavailable [phone] Jin Rajan MD Primary Care Provider [phone] Yusef Beck MBBS Unavailable [phone] Alicia Franco BUILDING MAINTENANCE ENGINEER Unavailable +[phone] Isis Borges NP Primary Care Provider Romain Cheng MD, PhD Unavailable [phone] Elizabet Quigley MD, PhD Unavailable [phone] Encounter Details Date Type Department Care Team (Late Contact Info) Description 05/19/2023 Procedure Pass [facility] - [address] [address] Social History Tobacco Use Types Packs/Day Years [...] with a working camera? Not on file Comments No Sex and Gender Information Value [...] EST Office Visit [facility] [address] [place] [address], 9th Floor, [address] [place] [address] Greyson Gilbert MD, PhD 55 [facility] [address] [place] [address] [email or web address] Scheduled Procedures Name Priority Associated Diagnoses Date/Ti me 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 documented as of this encounter Visit Diagnoses Not on filedocumented in this encounter Additional Health Concerns Infection Onset Date Last Indicated Resolved Time CoV-Risk 12/07/2023 12/07/2023 12/18/2023 1:22 AM EST CoV-Risk 12/31/2023 12/31/2023 01/11/2024 1:22 AM EDT MRSA 08/03/2024 06/03/2025 documented as of this encounter Care Teams Mold Cleaning And Storage Supervisor Relationship Specialty Start Date End Date Jonas Coleman MD [address] [place] [phone] [email or web address] PCP - General Family Medicine 04/28/23 12/30/23 Jin Rajan MD [address] [place] [phone] [email or web address] PCP - General Family Medicine 12/31/23 06/10/24 Isis Borges NP [address] [place] [address] PCP - General Nurse Practitioner 06/11/24 Jin Rajan MD [email or web address] Family Medicine 07/14/21 Alex Rider DO [address] [place] [address] [email or web address] Primary Oncologist Hematology and Oncology 09/17/22 Juan Du MD [address] [place] [address] [address] [place] [phone] [email or web address] Primary Oncologist Medical Oncology 10/08/22 Khadar Forde MD [address] [place] [address] [address] [place] [address] [email or web address] Radiation Oncology 10/10/22 Yasmeen Dixon, ADELA 55 [place] [address] [email or web address] Primary Infusion Nurse 12/09/22 Alicia Franco, BUILDING MAINTENANCE ENGINEER [address] [place] [address] [email or web address] iCMP Plus Inspector Golf Ball Nurse Practitioner 09/26/2310/01 Roxana Fuchs, ADELA [facility] [place] [address] [email or web address] iCMP Plus Inspector Golf Ball 09/26/23 10/26/23 Mirlande Mai [facility] [place] [address] [email or web address] iCMP Plus Community Health Worker 09/26/23 10/26/23 Dawna Baugh [facility] [address] [place] [address] [email or web address] iCMP Plus Mini Baccarat Dealer 09/26/23 10/26/23 Yusef Bcek MBBS [address] [place] [phone] [email or web address] Medical Oncology 01/31/24 Alicia Franco, BUILDING MAINTENANCE ENGINEER [address] [place] [address] [email or web address] iCMP Plus Inspector Golf Ball Nurse Practitioner 05/14/2406/24 Romain Cheng MD, PhD [address] [place] [address] YA-[address] [place] [address] JENNIFER@[facility] Medical Oncology 05/12/25 Elizabet Quigley MD, PhD [address] [place] [phone] [email or web address] Surgical Oncology 04/24/25 documented as of this encounter Additional Source Comments The information contained in this document represents components of the legal health record. It is not the complete legal health record.[facility]
--- OUTSIDE RECORDS SUMMARY | 2025-09-25 17:01 | XMS_ITS | Encounter Summary ---
Author Organization [facility] Address [address] [address] [address] Phone Care Team Providers Care Magneto Electrician Name Role Phone Jin Rajan MD Unavailable [phone] Alex Rider DO Unavailable [phone] Juan Du MD Unavailable [phone] Khadar Forde MD Unavailable [phone] Yasmeen Dixon RN Unavailable Al [email or web address] .[facility] Jonas Coleman MD Primary Care Prov ider Jin Rajan MD Primary Care Provider [phone] Yusef Beck MBBS Unavailable [phone] Alicia Franco DIRECTOR OF FAMILY SERVICE CENTER Unavailable [phone] Isis Borges NP Primary Care Provider Romain Cheng MD, PhD Unavailable [phone] Elizabet Quigley MD, PhD Unavailable [phone] Encounter Details Date Type Department Care Team (Late st Contact Info) Description 11/17/2023 Procedure Pass [facility], [address] [address] Social History Tobacco Use Types Packs/Day Years [...] Upcoming Encounters Date Type Department Care Team ([facility] st Contact Info) Description 10/18/2025 3:20 PM EST Office Visit [facility] [address] [place] [address], 9th Floor, [address] [place] [address] Greyson Gilbert MD, PhD [address] [place] [phone] [email or web address] Scheduled Procedures Name Priority Associated Diagnoses Date/Ti me 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 documented as of this encounter Visit Diagnoses Not on filedocumented in this encounter Additional Health Concerns Infection Onset Date Last Indicated Resolved Time CoV-Risk 12/07/2023 12/07/2023 12/18/2023 1:22 AM EST CoV-Risk 12/31/2023 12/31/2023 01/11/2024 1:22 AM EDT MRSA 08/03/2024 06/03/2025 documented as of this encounter Care Teams Magneto Electrician Relationship Specialty Start Date End Date Jonas Coleman MD [address] [place] [phone] [email or web address] PCP - General Family Medicine 04/28/23 12/30/23 Jin Rajan MD [address] [place] [phone] [email or web address] PCP - General Family Medicine 12/31/23 06/10/24 Isis Borges NP [address] [place] [address] PCP - General Nurse Practitioner 06/11/24 Jin Rajan MD [email or web address] Family Medicine 07/14/21 Alex Rider DO [address] [place] [address] [email or web address] Primary Oncologist Hematology and Oncology 09/17/22 Juan Du MD [address] [place] [address] 9E [place] [phone] [email or web address] Primary Oncologist Medical Oncology 10/08/22 Khadar Forde MD [address] [place] [address] 3 [place] [address] [email or web address] Radiation Oncology 10/10/22 Yasmeen Dixon, ADELA [address] [place] [phone] [email or web address] Primary Infusion Nurse 12/09/22 Yusef Beck MBBS [address] [place] [phone] [email or web address] Medical Oncology 01/31/24 Alicia Franco, LENKA [address] [place] [phone] [email or web address] iCMP Plus Licensed Physical Therapist Assistant Nurse Practitioner 05/14/2406/24 Romain Cheng MD, PhD [address] [place] [address] [email or web address] Medical Oncology 05/12/25 Elizabet Quigley MD, PhD [address] [place] [phone] [email or web address] Surgical Oncology 04/24/25 documented as of this encounter Additional Source Comments The information contained in this document represents components of the legal health record. It is not the complete legal health record.[facility]
--- OUTSIDE RECORDS SUMMARY | 2025-09-25 17:01 | XMS_ITS | Encounter Summary ---
Author Organization [facility] Address 399 [employer] [address] [address] Phone Care Team Providers Care Hydroelectric Operator Name Role Phone Jin Rajan MD Unavailable [phone] Becca Stubbs TELEPHONE INFORMATION SUPERVISOR Primary Care Provider + Alex Rider DO Unavailable [phone] Juan Du MD Unavailable [phone] Khadar Forde MD Unavailable [phone] Yasmeen Dixon RN Unavailable Al Sharona@[email or web address] .[facility] Jonas Coleman MD Primary Care Prov ider + Alicia Franco PSYCHOLOGY LECTURER Unavailable +[phone] Roxana Fuchs RN Unavailable [phone] Mirlande Mai Unavailable [email or web address].ORG Dawna Baugh [facility]HC Unavailable [phone] Jin Rajan MD Primary Care Provider [phone] Yusef Beck MBBS Unavailable [phone] Alicia Franco PSYCHOLOGY LECTURER Unavailable [phone] Isis Borges TELEPHONE INFORMATION SUPERVISOR Primary Care Provider Romain Cheng MD, PhD Unavailable [phone] Elizabet Quigley MD, PhD Unavailable Encounter Details Date Type Department Care Team (Late Contact Info) Description 03/17/2023 Procedure Pass [facility], Ct Scan - [address] [address] Social History Tobacco Use Types Packs/Day Years Used Date Smoking Tobacco: Never Smokeless Tobacco: Never Alcohol Use Standard Drinks/Week Comments Yes 2 (1 standard drink = 0.6 oz pur e alcohol) occ Education Answer Date Recorded Are you interested in more education? Not on donna e 02/24/2023 Are you concerned about learning? Not on file 02/24/2023 No 02/24/2023 No 02/24/2023 Comments No Sex and Gender Information Value [...] Office Visit [facility] 32 [facility], 9th Floor, [address] [place] [address] Greyson Gilbert MD, PhD 55 [facility] [address] [place] [address] [email or web address] Scheduled Procedures Name Priority [...] documented as of this encounter Care Teams Hydroelectric Operator Relationship Specialty Start Date End Date Becca Stubbs TELEPHONE INFORMATION SUPERVISOR [address] [place] [address] PCP - General Nurse Practitioner 05/08/22 04/27/23 Jonas Coleman MD 55 [place] [address] [email or web address] .[facility] PCP - General Family Medicine 04/28/23 12/30/23 Jin Rajan MD [address] [place] [phone] [email or web address] PCP - General Family Medicine 12/31/23 06/10/24 Isis Borges NP [address] [place] [address] PCP - General Nurse Practitioner 06/11/24 Jin Rajan MD [email or web address] Family Medicine 07/14/21 Alex Rider DO 30 [place] [address] [email or web address]. [facility] Primary Oncologist Hematology and Oncology 09/17/22 Juan Du MD [address] [place] [address] [address] [place] [phone] [email or web address] Primary Oncologist Medical Oncology 10/08/22 Khadar Forde MD [address] [place] [address] [address] [place] [address] [email or web address] Radiation Oncology 10/10/22 Yasmeen Dixon, ADELA 55 [place] [email or web address] [email or web address] Primary Infusion Nurse 12/09/22 Alicia Franco, PSYCHOLOGY LECTURER 55 [place] [address] [email or web address] iCMP Plus [employer] Nurse Practitioner 09/26/2310/01 Roxana Fuchs, ADELA [address] [place] [address] [email or web address] iCMP Plus [employer] 09/26/23 10/26/23 Mirlande Mai [address] [place] [address] [email or web address] iCMP Plus Community Health Worker 09/26/23 10/26/23 Dawna Bauhg, [facility] [address] [place] [phone] [email or web address] iCMP Plus Access Assoc 09/26/23 10/26/23 Yusef Beck MBBS [address] [place] [phone] [email or web address] Medical Oncology 01/31/24 Alicia Franco, PSYCHOLOGY LECTURER [address] [place] [address] [email or web address] iCMP Plus [employer] Nurse Practitioner 05/14/2406/24 Romain Cheng MD, PhD 55 [facility] [address] [place] [address] [email or web address]@[email or web address] Medical Oncology 05/12/25 Elizabet Quigley MD, PhD [address] [place] [phone] [email or web address] Surgical Oncology 04/24/25 documented as of this encounter Additional Source Comments The information contained in this document represents components of the legal health record. It is not the complete legal health record.[facility]
--- OUTSIDE RECORDS SUMMARY | 2025-09-25 17:01 | XMS_ITS | Encounter Summary ---
Author Organization [facility] Address [address] [address] Phone Care Team Providers Care Sandstone Inspector Repairer Name Role Phone Jin Rajan MD Unavailable [phone] Alex Rider DO Unavailable [phone] Juan Du MD Unavailable [phone] Khadar Forde MD Unavailable [phone] Yasmeen Dixon RN Unavailable Al [email or web address] Jonas Coleman MD Primary Care Prov ider Alicia Franco FLIGHT OPERATION COORDINATOR Unavailable [phone] Roxana Fuchs RN Unavailable [phone] Mirlande Mai Unavailable [email or web address] Dawna Baugh [facility] Unavailable [phone] Jin Rajan MD Primary Care Provider [phone] Yusef Beck MBBS Unavailable [phone] Alicia Franco FLIGHT OPERATION COORDINATOR Unavailable +[phone] Isis Borges NP Primary Care Provider Romain Cheng MD, PhD Unavailable [phone] Elizabet Quigley MD, PhD Unavailable [phone] Encounter Details Date Type Department Care Team (Late Contact Info) Description 05/19/2023 Procedure Pass [facility], Ct Scan - [address] [address] Social History Tobacco Use Types Packs/Day Years [...] EST Office [facility] [address] [place] [address], 9th Floor, [address] [place] [address] Greyson Gilbert MD, PhD [address] [facility] [address] [place] [address] [email or web address] Scheduled Procedures Name Priority Associated Diagnoses Date/Ti me 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 documented as of this encounter Visit Diagnoses Not on filedocumented in this encounter Additional Health Concerns Infection Onset Date Last Indicated Resolved Time CoV-Risk 12/07/2023 12/07/2023 12/18/2023 1:22 AM EST CoV-Risk 12/31/2023 12/31/2023 01/11/2024 1:22 AM EDT MRSA 08/03/2024 06/03/2025 documented as of this encounter Care Teams Sandstone Inspector Repairer Relationship Specialty Start Date End Date Jonas Coleman MD [address] [place] [phone] [email or web address] PCP - General Family Medicine 04/28/23 12/30/23 Jin Rajan MD [address] [place] [phone] PCP - General Family Medicine 12/31/23 06/10/24 Isis Borges NP [address] [place] [address] PCP - General Nurse Practitioner 06/11/24 Jin Rajan MD [email or web address] Family Medicine 07/14/21 Alex Rider DO [address] [place] [phone] [email or web address] Primary Oncologist Hematology and Oncology 09/17/22 Juan Du MD [address] [place] [address] [address] [place] [phone] [email or web address] Primary Oncologist Medical Oncology 10/08/22 Khadar Forde MD [address] [place] [address] [address] [place] [address] [email or web address] Radiation Oncology 10/10/22 Yasmeen Dixon, ADELA [address] [place] [address] [email or web address] Primary Infusion Nurse 12/09/22 Alicia Franco, FLIGHT OPERATION COORDINATOR [address] [place] [phone] [email or web address] iCMP Plus Digitizer Nurse Practitioner 09/26/2310/01 Roxana Fuchs, ADELA [facility] [place] [address] [email or web address] [employer] Digitizer 09/26/23 10/26/23 Mirlande Mai [facility] [place] [address] [email or web address] iCMP Plus Community Health Worker 09/26/23 10/26/23 Dawna Baugh [facility] [address] [place] [phone] [email or web address] iCMP Plus Lead Systems Engineer 09/26/23 10/26/23 Yusef Beck MBBS [address] [place] [phone] [email or web address] Medical Oncology 01/31/24 Alicia Franco, FLIGHT OPERATION COORDINATOR [address] [place] [address] [email or web address] iCMP Plus Digitizer Nurse Practitioner 05/14/2406/24 Romain Cheng MD, PhD [address] [place] [address] YA-[address] [place] [address] [email or web address] Medical Oncology 05/12/25 Elizabet Quigley MD, PhD [address] [place] [phone] [email or web address] Surgical Oncology 04/24/25 documented as of this encounter Additional Source Comments The information contained in this document represents components of the legal health record. It is not the complete legal health record.[facility]
--- OUTSIDE RECORDS SUMMARY | 2025-09-25 17:01 | XMS_ITS | Encounter Summary ---
Author Organization [facility] Address [address] [facility] [address] [place] [address] Phone Care Team Providers Care Punch Out Crew Member Name Role Phone Jin Rajan MD Unavailable [phone] Alex Rider DO Unavailable [phone] Juan Du MD Unavailable [phone] Khadar Forde MD Unavailable [phone] Yasmeen Dixon RN Unavailable Al [email or web address] [facility] Jonas Coleman MD Primary Care Prov ider Jin Rajan MD Primary Care Provider [phone] Yusef Beck MBBS Unavailable [phone] Alicia Franco GROMMET MACHINE OPERATOR Unavailable [phone] Isis Borges NP Primary Care Provider Romain Cheng MD, PhD Unavailable [phone] Elizabet Quigley MD, PhD Unavailable [phone] Encounter Details Date Type Department Care Team (Late st Contact Info) Description 11/17/2023 Procedure Pass [facility], Ct Scan - [address] [address] Social History Tobacco Use Types Packs/Day Years [...] Upcoming Encounters Date Type Department Care Team ([facility] st Contact Info) Description 10/18/2025 3:20 PM EST Office Visit [facility] [address] [place] [address], 9th Floor, [address] [place] [address] Greyson Gilbert MD, PhD [address] [place] [phone] [email or web address] Scheduled Procedures Name Priority Associated Diagnoses Date/Ti me 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 documented as of this encounter Visit Diagnoses Not on filedocumented in this encounter Additional Health Concerns Infection Onset Date Last Indicated Resolved Time CoV-Risk 12/07/2023 12/07/2023 12/18/2023 1:22 AM EST CoV-Risk 12/31/2023 12/31/2023 01/11/2024 1:22 AM EDT MRSA 08/03/2024 06/03/2025 documented as of this encounter Care Teams Punch Out Crew Member Relationship Specialty Start Date End Date Jonas Coleman MD [address] [place] [address] [email or web address] PCP - General Family Medicine 04/28/23 12/30/23 Jin Rajan MD [address] [place] [phone] [email or web address] PCP - General Family Medicine 12/31/23 06/10/24 Isis Borges NP [address] [place] [phone] PCP - General Nurse Practitioner 06/11/24 Jin Rajan MD [email or web address] Family Medicine 07/14/21 Alex Rider DO [address] [place] [address] [email or web address] Primary Oncologist Hematology and Oncology 09/17/22 Juan Du MD [address] [place] [address] [address] [place] [phone] [email or web address] Primary Oncologist Medical Oncology 10/08/22 Khadar Forde MD [address] [place] [address] 3 [place] [address] [email or web address] Radiation Oncology 10/10/22 Yasmeen Dixon, ADELA [address] [place] [address] [email or web address] Primary Infusion Nurse 12/09/22 Yusef Beck MBBS [address] [place] [phone] [email or web address] Medical Oncology 01/31/24 Alicia Franco, LENKA [address] [place] [phone] [email or web address] iCMP Plus Sand Mixer Machine Nurse Practitioner 05/14/2406/24 Romain Cheng MD, PhD [address] [place] [address] [email or web address] Medical Oncology 05/12/25 Elizabet Quigley MD, PhD [address] [place] [phone] [email or web address] Surgical Oncology 04/24/25 documented as of this encounter Additional Source Comments The information contained in this document represents components of the legal health record. It is not the complete legal health record.[facility]
--- OUTSIDE RECORDS SUMMARY | 2025-09-25 17:01 | XMS_ITS | Encounter Summary ---
Author Organization [facility] Address [address] [employer] [address] [address] Phone Care Team Providers Care Leaf Sticker Name Role Phone Jin Rajan MD Unavailable [phone] Becca Stubbs RESIDENT BUYER Primary Care Provider + Alex Rider DO Unavailable [phone] Juan Du MD Unavailable [phone] Khadar Forde MD Unavailable [phone] Yasmeen Dixon RN Unavailable Al [email or web address] .[facility] Jonas Coleman MD Primary Care Prov ider + Alicia Franco BROWNFIELD PROGRAM COORDINATOR Unavailable +[phone] Roxana Fuchs RN Unavailable [phone] Mirlande Mai Unavailable [email or web address] Dawna Baugh [facility]HC Unavailable [phone] Jin Rajan MD Primary Care Provider [phone] Yusef Beck MBBS Unavailable [phone] Alicia Franco BROWNFIELD PROGRAM COORDINATOR Unavailable [phone] Isis Borges RESIDENT BUYER Primary Care Provider Romain Cheng MD, PhD Unavailable [phone] Elizabet Quigley MD, PhD Unavailable [phone] Encounter Details Date Type Department Care Team (Late Contact Info) Description 12/28/2022 Procedure Pass [facility], [place] 2 [address] [facility], 2nd Floor, [address] [place] [address] Social History Tobacco Use Types Packs/Day Years Used Date Smoking Tobacco: Never Smokeless Tobacco: Never Alcohol Use Standard Drinks/Week Comments Yes 2 (1 standard drink = 0.6 oz pur e alcohol) occ Comments No Sex and Gender Information Value [...] Office Visit [facility] [address] [facility], 9th Floor, [address] [place] [address] Greyson Gilbert MD, PhD [address] [facility] [address] [place] [address] [email or web address] Scheduled Procedures Name Priority Associated Diagnoses Date/Ti me 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 documented as of this encounter Visit Diagnoses Not on filedocumented in this encounter Additional Health Concerns Infection Onset Date Last Indicated Resolved Time CoV-Risk Comment:Per note documentation 12/28/2022 12/28/2022 9:53 AM EST CoV-Risk 12/07/2023 12/07/2023 12/18/2023 1:22 AM EST CoV-Risk 12/31/2023 12/31/2023 01/11/2024 1:22 AM EDT MRSA 08/03/2024 06/03/2025 documented as of this encounter Care Teams Leaf Sticker Relationship Specialty Start Date End Date Becca Stubbs NP [address] [place] [phone] PCP - General Nurse Practitioner 05/08/22 04/27/23 Jonas Coleman MD [address] [place] [phone] [email or web address] .[email or web address] PCP - General Family Medicine 04/28/23 12/30/23 Jin Rajan MD [address] [place] [phone] [email or web address] PCP - General Family Medicine 12/31/23 06/10/24 Isis Borges NP [address] [place] [address] PCP - General Nurse Practitioner 06/11/24 Jin Rajan MD [email or web address] Family Medicine 07/14/21 Alex Rider DO [address] [place] [phone] [email or web address] Primary Oncologist Hematology and Oncology 09/17/22 Juan Du MD [address] [place] [address] [address] [place] [phone] [email or web address] Primary Oncologist Medical Oncology 10/08/22 Khadar Forde MD [address] [place] [address] [address] [place] [address] [email or web address] Radiation Oncology 10/10/22 Yasmeen Dixon, RN [address] [place] [address] [email or web address]@[email or web address] Primary Infusion Nurse 12/09/22 Alicia rFanco CNP [address] [place] [address] [email or web address] iCMP Plus Chemical Laboratory Tester Nurse Practitioner 09/26/2310/01 Roxana Fuchs, ADELA [address] [place] [address] [email or web address] iC[employer] Plus Chemical Laboratory Tester 09/26/23 10/26/23 Mirlande Mai [facility] [place] [address] [email or web address] iCMP Plus Community Health Worker 09/26/23 10/26/23 Dawna Baugh [facility] [address] [place] [phone] [email or web address] iCMP Plus Branch Or Department Chief Librarian 09/26/23 10/26/23 Yusef Beck MBBS [address] [place] [phone] [email or web address] Medical Oncology 01/31/24 Alicia Franco BROWNFIELD PROGRAM COORDINATOR [address] [place] [address] [email or web address] iCMP Plus Chemical Laboratory Tester Nurse Practitioner 05/14/2406/24 Romain Cheng MD, PhD [address] [place] [address] [address] [email or web address] Medical Oncology 05/12/25 Elizabet Quigley MD, PhD [address] [place] [phone] [email or web address] Surgical Oncology 04/24/25 documented as of this encounter Additional Source Comments The information contained in this document represents components of the legal health record. It is not the complete legal health record.[facility]
--- OUTSIDE RECORDS SUMMARY | 2025-09-25 17:01 | XMS_ITS | Encounter Summary ---
Author Organization [facility] Address [address] [address] Phone Care Team Providers Care Reading Tutor Name Role Phone Jin Rajan MD Unavailable [phone] Becca Stubbs SIDEWALK REPAIRER Primary Care Provider + Alex Rider DO Unavailable [phone] Juan Du MD Unavailable [phone] Khadar Forde MD Unavailable [phone] Yasmeen Dixon RN Unavailable [email or web address] .[facility] Jonas Coleman MD Primary Care Prov ider + Alicia Franco REVENUE CYCLE SPECIALIST Unavailable +[phone] Roxana Fuchs RN Unavailable [phone] Mirlande Mai Unavailable [email or web address] Dawna Baugh LMHC Unavailable [phone] Jin Rajan MD Primary Care Provider [phone] Yusef Beck MBBS Unavailable [phone] Alicia Franco REVENUE CYCLE SPECIALIST Unavailable [phone] Isis Borges SIDEWALK REPAIRER Primary Care Provider Romain Cheng MD, PhD Unavailable +[phone] Elizabet Quigley MD, PhD Unavailable [phone] Reason for Referral * MRI/CAT Scan - Closed Specialty Diagnoses / Procedures Referred By Contac t Referred To Contact Radiology Diagnoses Small cell lung cancer, left upper lobe Procedures CT PET Abdomen/Pelvis Juan Du MD Phone: tel: fax: mailto:[email or web address] Referral ID Status Reason Start Date Expiration Date Visits Re quested Visits Authorized [id number] Closed 03/14/2023 03/13/2024 1 1 * MRI/CAT Scan - Closed Specialty Diagnoses / Procedures Referred By Jamaal t Referred To Contact Radiology Diagnoses Small cell lung cancer, left upper lobe Procedures CT PET Chest Juan Du MD Phone: tel: fax: mailto:[email or web address] Referral ID Status Reason Start Date Expiration Date Visits Re quested Visits Authorized [id number] Closed 03/14/2023 03/13/2024 1 1 Encounter Details Date Type Department Care Team (Late st Contact Info) Description 03/14/2023 Ancillary Orders [facility] [address] [facility], 7th Floor, [address] [place] [address] Juan Du MD [address] [facility] [address] [place] [address] [email or web address] Small cell lung cancer, left upper lobe Social History Tobacco Use Types Packs/Day Years [...] Office Visit [facility] [address] [facility], 9th Floor, [address] [place] [address] Greyson Gilbert MD, PhD 55 [facility] [address] [place] [address] [email or web address] [email or web address] Procedures Name Priority Associated Diagnoses Date/Ti me 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 documented as of this encounter Results * CT PET ABDOMEN/PELVIS WITH CONTRAST (03/14/2023 5:01 PM EDT) Anatomical Region Laterality Modality Abdomen, Pelvis Positron Emissio n Tomography (PET) 03/15/2023 9:06 AM EDT Impressions 03/15/2023 4:39 PM EDT No abdominopelvic metastases. ATTESTATION: I, Dr. Nathanael Hauser as teaching physician, have reviewed the images for this case and if necessary edited the report originally created by Giovanni Rinaldi. Narrative 03/15/2023 4:[address] PET ABDOMEN/PELVIS WITH CONTRAST TECHNIQUE: Multidetector-row CT of the abdomen and pelvis was performed after administration of intravenous contrast using tailored dose modulation techniques. Images were reconstructed in the axial, coronal, and sagittal planes. COMPARISON: CT PET ABDOMEN/PELVIS WITH CONTRAST FINDINGS: Lower chest: Chest CT from same day reported separately. Liver: Unchanged 12 mm segment 6/7 hemangioma. No new focal liver lesion. Biliary: Noninflamed gallbladder. No biliary ductal dilatation. Spleen: Splenectomy. Pancreas: Distal pancreatectomy. No masses or main duct dilation. Adrenal glands: Left adrenalectomy. No right adrenal nodules. Kidneys/ureters: Left nephrectomy. No stones, hydronephrosis, or masses in the right kidney. Bowel: No abnormal bowel distention. Normal appendix. Colonic diverticulosis. Peritoneum/retroperitoneum: No masses, free air, or fluid. Lymph nodes: No lymphadenopathy. Pelvic organs/bladder: IUD in place. No masses. Vessels: No abdominal aortic aneurysm. Bones/soft tissues: No destructive osseous lesions. Skeletal degenerative changes. Similar left lateral body wall hernia containing nonobstructed small bowel. Mild soft tissue thickening in the right groin, likely inflammatory (13:940). Procedure Note Nathanael Hauser MD - 03/15/2023 CT PET ABDOMEN/PELVIS WITH CONTRAST TECHNIQUE: Multidetector-row CT of the abdomen and pelvis was performedafter administration of intravenous contrast using tailored dosemodulation techniques. Images were reconstructed in the axial, coronal,and sagittal planes. COMPARISON: CT PET ABDOMEN/PELVIS WITH CONTRAST FINDINGS: Lower chest: Chest CT from same day reported separately. Liver: Unchanged 12 mm segment 6/7 hemangioma. No new focal liverlesion. Biliary: Noninflamed gallbladder. No biliary ductal dilatation. Spleen: Splenectomy. Pancreas: Distal pancreatectomy. No masses or main duct dilation. Adrenal glands: Left adrenalectomy. No right adrenal nodules. Kidneys/ureters: Left nephrectomy. No stones, hydronephrosis, or masses inthe right kidney. Bowel: No abnormal bowel distention. Normal appendix. Colonicdiverticulosis. Peritoneum/retroperitoneum: No masses, free air, or fluid. Lymph nodes: No lymphadenopathy. Pelvic organs/bladder: IUD in place. No masses. Vessels: No abdominal aortic aneurysm. Bones/soft tissues: No destructive osseous lesions. Skeletal degenerativechanges. Similar left lateral body wall hernia containing nonobstructed smallbowel. Mild soft tissue thickening in the right groin, likely inflammatory(13:940). IMPRESSION: No abdominopelvic metastases. ATTESTATION: I, Dr. Nathanael Hauser as teaching physician, havereviewed the images for this case and if necessary edited the reportoriginally created by Giovanni Rinaldi. us Juan Du MD IMG CT PETCT Final Resu lt * CT PET CHEST WITH CONTRAST (03/14/2023 5:01 PM EDT) Anatomical Region Laterality Modality Chest Positron Emissio n Tomography (PET) 03/14/2023 7:33 PM EDT Impressions 03/15/2023 3:23 PM EDT 1. Since , unchanged multistation thoracic lymphadenopathy. 2. Unchanged 6 mm right lower lobe nodule. 3. No new or increased sites of thoracic metastases. Narrative 03/15/2023 3:[address] PET CHEST WITH CONTRAST TECHNIQUE: Multidetector CT of the chest was performed with intravenous contrast using tailored dose modulation techniques. COMPARISON: CT CHEST WITH CONTRAST FINDINGS: Devices/tubes/lines: Unaccessed right anterior chest wall port catheter tip at the superior cavoatrial junction. Lungs/airways: Left upper lobectomy with patent remaining central airways. Unchanged 6 mm right lower lobe nodule (12:328) no new or increased nodules. Pleura: Unchanged small left pleural effusion. No right pleural effusion. No pneumothoraces. Mediastinum: Total thyroidectomy with no suspicious nodularity in the surgical bed. Nonenlarged cardiac chambers and great vessels. No central pulmonary emboli. Retroesophageal aberrant right subclavian artery with no ostial diverticulum. No apparent coronary artery calcification. Lymph nodes: Unchanged multistation lymphadenopathy, including: * 11 mm prevascular (12:169) * 11 mm left axillary (12:182) * 10 mm left subpectoral (12:96) * 10 mm left supraclavicular (12:84) * 13 mm right upper paratracheal (12:156) * 10 mm left internal mammary (12:242) Right axillary lymphadenectomy. No lower mediastinal lymphadenopathy. Upper abdomen: Reported separately. Chest wall: Bilateral breast prostheses status post mastectomy. Bones: No suspicious bone lesions. Procedure Note Usman Fuentes MD, PhD - 03/15/2023 CT PET CHEST WITH CONTRAST TECHNIQUE: Multidetector CT of the chest was performed with intravenouscontrast using tailored dose modulation techniques. COMPARISON: CT CHEST WITH CONTRAST FINDINGS: Devices/tubes/lines: Unaccessed right anterior chest wall port cathetertip at the superior cavoatrial junction. Lungs/airways: Left upper lobectomy with patent remaining centralairways. Unchanged 6 mm right lower lobe nodule (12:328) no new or increasednodules. Pleura: Unchanged small left pleural effusion. No right pleural effusion.No pneumothoraces. Mediastinum: Total thyroidectomy with no suspicious nodularity in thesurgical bed. Nonenlarged cardiac chambers and great vessels. No centralpulmonary emboli. Retroesophageal aberrant right subclavian artery with noostial diverticulum. No apparent coronary artery calcification. Lymph nodes: Unchanged multistation lymphadenopathy, including: * 11 mm prevascular (12:169) * 11 mm left axillary (12:182) * 10 mm left subpectoral (12:96) * 10 mm left supraclavicular (12:84) * 13 mm right upper paratracheal (12:156) * 10 mm left internal mammary (12:242) Right axillary lymphadenectomy. No lower mediastinal lymphadenopathy. Upper abdomen: Reported separately. Chest wall: Bilateral breast prostheses status post mastectomy. Bones: No suspicious bone lesions. IMPRESSION: 1. Since , unchanged multistation thoracic lymphadenopathy. 2. Unchanged 6 mm right lower lobe nodule. 3. No new or increased sites of thoracic metastases. 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, left upper lobe documented in this encounter Additional Health Concerns Infection Onset Date Last Indicated Resolved Time CoV-Risk 12/07/2023 12/07/2023 12/18/2023 1:22 AM EST CoV-Risk 12/31/2023 12/31/2023 01/11/2024 1:22 AM EDT MRSA 08/03/2024 06/03/2025 documented as of this encounter Care Teams Reading Tutor Relationship Specialty Start Date End Date Becca Stubbs NP [address] [place] [phone] PCP - General Nurse Practitioner 05/08/22 04/27/23 Jonas Coleman MD [address] [place] [phone] [email or web address] PCP - General Family Medicine 04/28/23 12/30/23 Jin Rajan MD [address] [place] [phone] [email or web address] PCP - General Family Medicine 12/31/23 06/10/24 Isis Borges NP [address] [place] [phone] PCP - General Nurse Practitioner 06/11/24 Jin Rajan MD [email or web address] Family Medicine 07/14/21 Alex Rider DO 30 [place] [address] [email or web address] Primary Oncologist Hematology and Oncology 09/17/22 Juan Du MD [address] [place] [address] [address] [place] [phone] [email or web address] Primary Oncologist Medical Oncology 10/08/22 Khadar Forde MD [address] [place] [address] 3 [place] [address] [email or web address] Radiation Oncology 10/10/22 Yasmeen Dixon, ADELA [address] [place] [address] [email or web address] Primary Infusion Nurse 12/09/22 Alicia Franco CNP [address] [place] [address] [email or web address] [employer] Manager Welding Nurse Practitioner 09/26/2310/01 Roxana Fuchs, ADELA [facility] [place] [address] [email or web address] [employer] Manager Welding 09/26/23 10/26/23 Mirlande Mai [facility] [place] [address] [email or web address] iC[employer] Plus Community Health Worker 09/26/23 10/26/23 Dawna Baugh [facility] [address] [place] [phone] [email or web address] [employer] Legal Editor 09/26/23 10/26/23 Yusef Beck MBBS [address] [place] [phone] [email or web address] Medical Oncology 01/31/24 Alicia Franco REVENUE CYCLE SPECIALIST [address] [place] [address] [email or web address] [employer] Manager Welding Nurse Practitioner 05/14/2406/24 Romain Cheng MD, PhD [address] [place] [phone] [email or web address] Medical Oncology 05/12/25 Elizabet Quigley MD, PhD [address] [place] [phone] [email or web address] Surgical Oncology 04/24/25 documented as of this encounter Additional Source Comments The information contained in this document represents components of the legal health record. It is not the complete legal health record.[facility]
--- OUTSIDE RECORDS SUMMARY | 2025-09-25 17:01 | XMS_ITS | Encounter Summary ---
Author Organization [facility] Address [address] [address] Phone Care Team Providers Care Pulp Beater Name Role Phone Jin Rajan MD Unavailable [phone] Alex Rider DO Unavailable [phone] Juan Du MD Unavailable [phone] Khadar Forde MD Unavailable [phone] Yasmeen Dixon RN Unavailable Al [email or web address] .[facility] Jonas Coleman MD Primary Care Prov ider Alicia Franco PIT CREW SUPPORT WORKER Unavailable [phone] Roxana Fuchs RN Unavailable [phone] Mirlande Mai Unavailable [email or web address] Dawna Baugh [facility] Unavailable [phone] Jin Rajan MD Primary Care Provider [phone] Yusef Beck MBBS Unavailable [phone] Alicia Franco PIT CREW SUPPORT WORKER Unavailable [phone] Isis Borges NP Primary Care Provider Romain Cheng MD, PhD Unavailable [phone] Elizabet Quigley MD, PhD Unavailable [phone] Encounter Details Date Type Department Care Team (Late Contact Info) Description 05/19/2023 Procedure Pass [facility], Ct Scan - [address] [address] Social History Tobacco Use Types Packs/Day Years [...] Office Visit [facility] [address] [place] [address], 9th Floor, [address] [place] [address] Greyson Gilbert MD, PhD [address] [facility] [address] [place] [address] [email or web address] Scheduled Procedures Name Priority Associated Diagnoses Date/Ti me 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 documented as of this encounter Visit Diagnoses Not on filedocumented in this encounter Additional Health Concerns Infection Onset Date Last Indicated Resolved Time CoV-Risk 12/07/2023 12/07/2023 12/18/2023 1:22 AM EST CoV-Risk 12/31/2023 12/31/2023 01/11/2024 1:22 AM EDT MRSA 08/03/2024 06/03/2025 documented as of this encounter Care Teams Pulp Beater Relationship Specialty Start Date End Date Jonas Coleman MD [address] [place] [address] [email or web address] PCP - General Family Medicine 04/28/23 12/30/23 Jin Rajan MD [address] [place] [phone] [email or web address] PCP - General Family Medicine 12/31/23 06/10/24 Isis Borges NP [address] [place] [address] PCP - General Nurse Practitioner 06/11/24 Jin Rajan MD [email or web address] Family Medicine 07/14/21 Alex Rider DO [address] [place] [address] [email or web address] Primary Oncologist Hematology and Oncology 09/17/22 Juan Du MD [address] [place] [address] [address] [place] [phone] [email or web address] Primary Oncologist Medical Oncology 10/08/22 Khadar Forde MD [address] [place] [address] [address] [place] [address] [email or web address] Radiation Oncology 10/10/22 Yasmeen Dixon, ADELA [address] [place] [address] [email or web address] Primary Infusion Nurse 12/09/22 Alicia Franco, PIT CREW SUPPORT WORKER [address] [place] [address] [email or web address] [employer] Digital Media Analyst Nurse Practitioner 09/26/2310/01 Roxana Fuchs, ADELA [facility] [place] [address] [email or web address] [employer] Digital Media Analyst 09/26/23 10/26/23 Mirlande Mai [facility] [place] [address] [email or web address] iCMP Plus Community Health Worker 09/26/23 10/26/23 Dawna Baugh [facility] [address] [place] [address] [email or web address] [employer] Plus Fence Post Cutter 09/26/23 10/26/23 Yusef Beck MBBS [address] [place] [phone] [email or web address] Medical Oncology 01/31/24 Alicia Franco, PIT CREW SUPPORT WORKER [address] [place] [address] [email or web address] [employer] Plus Digital Media Analyst Nurse Practitioner 05/14/2406/24 Romain Cheng MD, PhD [address] [place] [address] Y[address] [place] [phone] [email or web address] Medical Oncology 05/12/25 Elizabet Quigley MD, PhD [address] [place] [phone] [email or web address] Surgical Oncology 04/24/25 documented as of this encounter Additional Source Comments The information contained in this document represents components of the legal health record. It is not the complete legal health record.[facility]
--- OUTSIDE RECORDS SUMMARY | 2025-09-25 17:01 | XMS_ITS | Encounter Summary ---
Author Organization [facility] Address [address] [employer] [address] Phone Care Team Providers Care Wafer Fabrication Technician Name Role Phone Jin Rajan MD Unavailable [phone] Becca Stubbs DORR OPERATOR Primary Care Provider + Alex Rider DO Unavailable [phone] Juan Du MD Unavailable [phone] Khadar Forde MD Unavailable [phone] Yasmeen Dixon RN Unavailable Al [email or web address] .[facility] Jonas Coleman MD Primary Care Prov ider + Alicia Franco MARINATOR Unavailable +[phone] Roxana Fuchs RN Unavailable [phone] Mirlande Mai Unavailable [email or web address] Dawna Baugh LMHC Unavailable [phone] Jin Rajan MD Primary Care Provider [phone] Yusef Beck MBBS Unavailable [phone] Alicia Franco MARINATOR Unavailable [phone] Isis Borges DORR OPERATOR Primary Care Provider Romain Cheng MD, PhD Unavailable [phone] Elizabet Quigley MD, PhD Unavailable Encounter Details Date Type Department Care Team (Late Contact Info) Description 02/18/2023 Procedure Pass [facility], [facility] [address] [place] [address] Social History Tobacco Use Types Packs/Day Years [...] Office Visit [facility] [address] [facility], 9th Floor, [address] [place] [address] Greyson Gilbert MD, PhD 55 [facility] [address] [place] [address] [email or web address] Scheduled Procedures Name Priority Associated Diagnoses Date/Ti me 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 documented as of this encounter Visit Diagnoses Not on filedocumented in this encounter Additional Health Concerns Infection Onset Date Last Indicated Resolved Time CoV-Risk 12/07/2023 12/07/2023 12/18/2023 1:22 AM EST CoV-Risk 12/31/2023 12/31/2023 01/11/2024 1:22 AM EDT MRSA 08/03/2024 06/03/2025 documented as of this encounter Care Teams Wafer Fabrication Technician Relationship Specialty Start Date End Date Becca Stubbs NP [address] [place] [address] PCP - General Nurse Practitioner 05/08/22 04/27/23 Jonas Coleman MD [address] [place] [address] [email or web address] PCP - General Family Medicine 04/28/23 12/30/23 Jin Rajan MD [address] [place] [phone] [email or web address] PCP - General Family Medicine 12/31/23 06/10/24 Isis Borges NP [address] [place] [address] PCP - General Nurse Practitioner 06/11/24 Jin Rajan MD [email or web address] Family Medicine 07/14/21 Alex Rider DO 30 [place] [address] [email or web address] Primary Oncologist Hematology and Oncology 09/17/22 Juan Du MD [address] [place] [address] [address] [place] [phone] [email or web address] Primary Oncologist Medical Oncology 10/08/22 Khadar Forde MD [address] [place] [address] 3 [place] [address] [email or web address] Radiation Oncology 10/10/22 Yasmeen Dixon RN [address] [place], [place] [email or web address] Primary Infusion Nurse 12/09/22 Alicia Franco MARINATOR [address] [place] [phone] [email or web address] i[employer] Plus Field Adjuster Nurse Practitioner 09/26/2310/01 Roxana Fuchs, ADELA [address] [place] [address] [email or web address] [employer] Plus Field Adjuster 09/26/23 10/26/23 Mirlande Mai [address] [place] [address] [email or web address] iC[employer] Plus Community Health Worker 09/26/23 10/26/23 Dawna Baugh, [facility] [address] [place] [phone] [email or web address] iC[employer] Plus Director Of Head Start 09/26/23 10/26/23 Yusef Beck MBBS [address] [place] [phone] [email or web address] Medical Oncology 01/31/24 Alicia Franco MARINATOR [address] [place] [address] [email or web address] [employer] Plus Field Adjuster Nurse Practitioner 05/14/2406/24 Romain Cheng MD, PhD [address] [place] [address] [email or web address] Medical Oncology 05/12/25 Elizabet Quigley MD, PhD [address] [place] [phone] [email or web address] Surgical Oncology 04/24/25 documented as of this encounter Additional Source Comments The information contained in this document represents components of the legal health record. It is not the complete legal health record.[facility]
--- OUTSIDE RECORDS SUMMARY | 2025-09-25 17:01 | XMS_ITS | Encounter Summary ---
Author Organization [facility] Address [address] [address] Phone Care Team Providers Care Rack Washer Name Role Phone Jin Rjaan MD Unavailable [phone] Becca Stubbs NP Unavailable [phone] Becca Stubbs NP Primary Care Provider [phone] Alex Rider DO Unavailable [phone] Juan Du MD Unavailable [phone] Yasmeen Dixon RN Unavailable Al [email or web address] .[facility] Khadar Forde MD Unavailable [phone] Jody Fleming RN Unavailable [email or web address] @[email or web address] Yasmeen Dixon RN Unavailable Al [email or web address] .[facility] Jonas Coleman MD Primary Care Prov ider Alicia Franco SPRAYER INSECTICIDE Unavailable +[phone] Roxana Fuchs RN Unavailable [phone] Mirlande Mai Unavailable [email or web address] Dawna Baugh LM Unavailable +[phone] Jin Rajan MD Primary Care Provider [phone] Yusef Beck MBBS Unavailable [phone] Alicia Franco SPRAYER INSECTICIDE Unavailable [phone] Isis Borges FORM SETTER STEEL PAN FORMS Primary Care Provider Romain Cheng MD, PhD Unavailable Elizabet Quigley MD, PhD Unavailable Encounter Details Date Type Department Care Team (Late Contact Info) Description 09/30/2022 Procedure Pass [facility] 30 [place] [address] Social History Tobacco Use Types Packs/Day Years [...] Office Visit [facility] 32 [facility], 9th Floor, [address] [place] [address] Greyson Gilbert MD, PhD 55 [facility] [address]E [place] [address] [email or web address] Scheduled Procedures Name [...] documented as of this encounter Care Teams Rack Washer Relationship Specialty Start Date End Date Becca Stubbs, FORM SETTER STEEL PAN FORMS [address] [place] [address] PCP - General Nurse Practitioner 05/08/22 04/27/23 Jonas Coleman MD [address] [place] [address] [email or web address] PCP - General Family Medicine 04/28/23 12/30/23 Jin Rajan MD [address] [place] [phone] [email or web address] PCP - General Family Medicine 12/31/23 06/10/24 Isis Borges NP [address] [place] [address] PCP - General Nurse Practitioner 06/11/24 Jin Rajan MD [email or web address] Family Medicine 07/14/21 Becca Stubbs NP [address] [place] [address] Primary Care Physician 01/27/1610/12 Alex Rider DO 30 [place] [address] [email or web address]. [facility] Primary Oncologist Hematology and Oncology 09/17/22 Juan Du MD 55 [facility] [address] [place] [phone] [email or web address] Primary Oncologist Medical Oncology 10/08/22 Yasmeen Dixon, ADELA [address] [place] [address] [email or web address] Primary Infusion Nurse 10/08/22 11/23/22 Khadar oFrde MD 55 [facility] PHILLIPS 3 [place] [address] [email or web address] Radiation Oncology 10/10/22 Jody Fleming RN [address] [place] [address] [email or web address] Primary Infusion Nurse 11/24/22 12/08/22 Yasmeen Dixon, ADELA [address] [place] [address] [email or web address] Primary Infusion Nurse 12/09/22 Alicia Franco, SPRAYER INSECTICIDE [address] [place] [address] [email or web address] iCMP Plus Rebar Bender Nurse Practitioner 09/26/2310/01 Roxana Fuchs RN [address] [place] [address] [email or web address] i[employer] Plus Rebar Bender 09/26/23 10/26/23 Mirlande Mai [address] [place] [address] [email or web address] Stefany iCMP Plus Community Health Worker 09/26/23 10/26/23 Dawna Baugh, [facility] [address] [place] [phone] [email or web address] iCMP Plus Bleach Boiler Puller 09/26/23 10/26/23 Yusef Beck MBBS [address] [place] [phone] [email or web address] Medical Oncology 01/31/24 Alicia Fracno, SPRAYER INSECTICIDE [address] [place] [address] [email or web address] iCMP Plus Rebar Bender Nurse Practitioner 05/14/2406/24 Romain Cheng MD, PhD [address] [place] [address] [email or web address] Medical Oncology 05/12/25 Elizabet Quigley MD, PhD [address] [place] [phone] [email or web address] Surgical Oncology 04/24/25 documented as of this encounter Additional Source Comments The information contained in this document represents components of the legal health record. It is not the complete legal health record.[facility]
--- OUTSIDE RECORDS SUMMARY | 2025-09-25 17:01 | XMS_ITS | Encounter Summary ---
Author Organization [facility] Address [address] [employer] [address] [address] Phone Care Team Providers Care Controls Operator Molded Goods Name Role Phone Jin Rajan MD Primary Care Provider [phone] Jin Rajan MD Primary Care Provider [phone] Becca Stubbs NP Primary Care Provider [phone] Jin Rajan MD Unavailable [phone] Becca Stubbs DRYWALL FOREMAN Unavailable [phone] Nora Hood MD Unavailable [phone] Jin Rajan MD Unavailable [phone] Becca Stubbs DRYWALL FOREMAN Primary Care Provider [phone] Alex Rider DO Unavailable [phone] Juan Du MD Unavailable [phone] Yasmeen Dixon RN Unavailable Al [email or web address] .[facility] Khadar Forde MD Unavailable [phone] Jody Fleming RN Unavailable [email or web address] Yasmeen Dixon RN Unavailable Al [email or web address] .[facility] Jonas Coleman MD Primary Care Prov ider Alicia Franco TECHNOLOGY DIRECTOR Unavailable [phone] Roxana Fuchs RN Unavailable [phone] Mirlande Mai Unavailable [email or web address] Dawna Baugh [facility] Unavailable Jin Rajan MD Primary Care Provider Yusef Beck MBBS Unavailable Alicia Franco TECHNOLOGY DIRECTOR Unavailable [phone] Isis Borges DRYWALL FOREMAN Primary Care Provider Romain Cheng MD, PhD Unavailable [phone] Elizabet Quigley MD, PhD Unavailable [phone] Encounter Details Date Type Department Care Team (Late Contact Info) Description 08/21/2018 Procedure Pass [facility], [address] [address] Social History Tobacco Use Types Packs/Day Years Used Date Smoking Tobacco: Never Smokeless Tobacco: Never Alcohol Use Standard Drinks/Week Comments Yes 0 (1 standard drink = 0.6 oz pur [...] [facility] 32 [facility], 9th Floor, [address] [place] [address] Greyson Gilbert MD, PhD 55 [facility] 7E [place] [address] [email or web address] Scheduled Procedures Name Priority Associated Diagnoses Date/Ti me 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 documented as of this encounter Visit Diagnoses Not on filedocumented in this encounter Additional Health Concerns Infection Onset Date Last Indicated Resolved Time CoV-Risk 07/14/2021 07/14/2021 07/24/2021 1:23 AM EDT CoV-Presumed Comment:Per Note Documentation 09/28/2022 09/27/2022 4:26 PM EST CoV-Risk Comment:Per note documentation 12/28/2022 12/28/2022 9:53 AM EST CoV-Risk 12/07/2023 12/07/2023 12/18/2023 1:22 AM EST CoV-Risk 12/31/2023 12/31/2023 01/11/2024 1:22 AM EDT MRSA 08/03/2024 06/03/2025 documented as of this encounter Care Teams Controls Operator Molded Goods Relationship Specialty Start Date End Date Jin Rajan MD [email or web address] PCP - General Family Medicine 11/28/17 12/03/20 Jin Rajan MD [email or web address] PCP - General Family Medicine 12/04/20 07/13/21 Becca Stubbs NP [address] [place] [address] PCP - General Nurse Practitioner 07/14/21 05/07/22 Becca Stubbs NP 238 [place] [address] PCP - General Nurse Practitioner 05/08/22 04/27/23 Jonas Coleman MD [address] [place] [address] [email or web address] PCP - General Family Medicine 04/28/23 12/30/23 Jin Rajan MD [address] [place] [phone] [email or web address] PCP - General Family Medicine 12/31/23 06/10/24 Isis Borges, VALENTÍN [address] [place] [address] PCP - General Nurse Practitioner 06/11/24 Jin Rajan MD [email or web address] Family Medicine 07/14/21 Becca Stubbs NP [address] [place] [address] Primary Care Physician 01/27/1610/12 Nora Hood MD [address] [place] [address] [email or web address] Primary Oncologist Medical Oncology 12/19/20 09/16/22 Jin Rajan MD [address] [place] [address] [email or web address] Insurance Assigned Provider 08/08/21 09/05/21 Alex Rider DO 30 [place] [address] [email or web address]. [facility] Primary Oncologist Hematology and Oncology 09/17/22 Juan Du MD [address] [place] [address] 9[address] [place] [phone] [email or web address] Primary Oncologist Medical Oncology 10/08/22 Yasmeen Dixon, ADELA 55 [place] [address] [email or web address] [email or web address] Primary Infusion Nurse 10/08/22 11/23/22 Khadar Forde MD [address] [place] [address] [email or web address] Radiation Oncology 10/10/22 Jody Fleming RN 55 [place] [address] [email or web address] Primary Infusion Nurse 11/24/22 12/08/22 Yasmeen Dixon, ADELA [address] [place] [address] [email or web address] Primary Infusion Nurse 12/09/22 Alicia Franco CNP [address] [place] [address] [email or web address] iCMP Plus Coordinator Volunteer Services Nurse Practitioner 09/26/2310/01 Roxana Fuchs RN [address] [employer] [address] [email or web address] iCMP Plus Coordinator Volunteer Services 09/26/23 10/26/23 Mirlande Mai [address] [employer] [place] [address] [email or web address] iCMP Plus Community Health Worker 09/26/23 10/26/23 Dawna Baugh [facility] [address] [place] [phone] [email or web address] iCMP Plus Credit Compliance Officer 09/26/23 10/26/23 Yusef Beck MBBS [address] [place] [phone] [email or web address] Medical Oncology 01/31/24 Alicia Franco, TECHNOLOGY DIRECTOR [address] [place] [address] [email or web address] iCMP Plus Coordinator Volunteer Services Nurse Practitioner 05/14/2406/24 Romain Cheng MD, PhD [address] [place] [phone] [email or web address] Medical Oncology 05/12/25 Elizabet Quigley MD, PhD [address] [place] [phone] [email or web address] Surgical Oncology 04/24/25 documented as of this encounter Additional Source Comments The information contained in this document represents components of the legal health record. It is not the complete legal health record.[facility]
--- OUTSIDE RECORDS SUMMARY | 2025-09-25 17:01 | XMS_ITS | Encounter Summary ---
Author Organization [facility] Address [address] [address] Phone Care Team Providers Care Cs Associate Name Role Phone Jin Rajan MD Unavailable [phone] Becca Stubbs V BELT BUILDER Primary Care Provider + Alex Rider DO Unavailable [phone] Juan Du MD Unavailable [phone] Khadar Forde MD Unavailable [phone] Yasmeen Dixon RN Unavailable Al [email or web address] .[facility] Jonas Coleman MD Primary Care Prov ider + Alicia Franco COKE DRAWER HAND Unavailable +[phone] Roxana Fuchs RN Unavailable [phone] Mirlande Mai Unavailable [email or web address] Dawna Baugh LMHC Unavailable [phone] Jin Rajan MD Primary Care Provider [phone] Yusef Beck MBBS Unavailable [phone] Alicia Franco COKE DRAWER HAND Unavailable [phone] Isis Borges V BELT BUILDER Primary Care Provider Romain Cheng MD, PhD Unavailable [phone] Elizabet Quigley MD, PhD Unavailable Encounter Details Date Type Department Care Team (Late Contact Info) Description 03/14/2023 Procedure Pass [facility], Donta 2 55 [facility], 2nd [place] [address] Social History Tobacco Use Types Packs/Day Years [...] Office Visit [facility] 32 [facility], 9th Floor, [address] [place] [address] Greyson Gilbert MD, PhD 55 [facility] [address] [place] [address] Scheduled Procedures Name Priority Associated Diagnoses Date/Ti me 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 documented as of this encounter Visit Diagnoses Not on filedocumented in this encounter Additional Health Concerns Infection Onset Date Last Indicated Resolved Time CoV-Risk 12/07/2023 12/07/2023 12/18/2023 1:22 AM EST CoV-Risk 12/31/2023 12/31/2023 01/11/2024 1:22 AM EDT MRSA 08/03/2024 06/03/2025 documented as of this encounter Care Teams Cs Associate Relationship Specialty Start Date End Date Becca Stubbs NP [address] [place] [address] PCP - General Nurse Practitioner 05/08/22 04/27/23 Jonas Coleman MD 55 [place] [address] [email or web address] PCP - General Family Medicine 04/28/23 12/30/23 Jin Rajan MD [address] [place] [phone] [email or web address] PCP - General Family Medicine 12/31/23 06/10/24 Isis Borges NP [address] [place] [address] PCP - General Nurse Practitioner 06/11/24 Jin Rajan MD [email or web address] Family Medicine 07/14/21 Alex Rider DO 30 [place] [address] [email or web address]. [facility] Primary Oncologist Hematology and Oncology 09/17/22 Juan Du MD [address] [place] [address] [address] [place] [phone] [email or web address] Primary Oncologist Medical Oncology 10/08/22 Khadar Forde MD 55 [facility] [address] [place] [address] [email or web address] Radiation Oncology 10/10/22 Yasmeen Dixon, ADELA 55 [place] [address] [email or web address] [email or web address] Primary Infusion Nurse 12/09/22 Alicia Franco, COKE DRAWER HAND 55 [place] [address] [email or web address] iCMP Plus Physics Department Chair Nurse Practitioner 09/26/2310/01 Roxana Fuchs, ADELA [address] [place] [address] [email or web address] iCMP Plus Physics Department Chair 09/26/23 10/26/23 Mirlande Mai [address] [place] [address] [email or web address] iCMP Plus Community Health Worker 09/26/23 10/26/23 Dawna Baugh [facility] [address] [place] [phone] [email or web address] iCMP Plus Saw Operator 09/26/23 10/26/23 Yusef Beck MBBS [address] [place] [phone] [email or web address] Medical Oncology 01/31/24 Alicia Franco, COKE DRAWER HAND [address] [place] [address] [email or web address] iCMP Plus Physics Department Chair Nurse Practitioner 05/14/2406/24 Romain Cheng MD, PhD 55 [facility] [address] [place] [address] [email or web address]@[email or web address] Medical Oncology 05/12/25 Elizabet Quigley MD, PhD [address] [place] [phone] [email or web address] Surgical Oncology 04/24/25 documented as of this encounter Additional Source Comments The information contained in this document represents components of the legal health record. It is not the complete legal health record.[facility]
--- OUTSIDE RECORDS SUMMARY | 2025-09-25 17:01 | XMS_ITS | Encounter Summary ---
Author Organization [facility] Address [address] [facility] [address] [place] [address] Phone Care Team Providers Care Administrative Job Titles Name Role Phone Jin Rajan MD Unavailable [phone] Alex Rider DO Unavailable [phone] Juan Du MD Unavailable [phone] Khadar Forde MD Unavailable [phone] Yasmeen Dixon RN Unavailable Al [email or web address] .[facility] Jonas Coleman MD Primary Care Prov ider Jin Rajan MD Primary Care Provider [phone] Yusef Beck MBBS Unavailable [phone] Alicia Franco BASTER HAND Unavailable [phone] Isis Borges NP Primary Care Provider Romain Cheng MD, PhD Unavailable [phone] Elizabet Quigley MD, PhD Unavailable [phone] Encounter Details Date Type Department Care Team (Late st Contact Info) Description 11/17/2023 Procedure Pass [facility], Ct Scan - [address] [address] Social History Tobacco Use Types Packs/Day Years [...] Upcoming Encounters Date Type Department Care Team ([facility] st Contact Info) Description 10/18/2025 3:20 PM EST Office Visit [facility] [address] [place] [address], 9th Floor, [address] [place] [address] Greyson Gilbert MD, PhD [address] [place] [phone] [email or web address] Scheduled Procedures Name Priority Associated Diagnoses Date/Ti me 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 documented as of this encounter Visit Diagnoses Not on filedocumented in this encounter Additional Health Concerns Infection Onset Date Last Indicated Resolved Time CoV-Risk 12/07/2023 12/07/2023 12/18/2023 1:22 AM EST CoV-Risk 12/31/2023 12/31/2023 01/11/2024 1:22 AM EDT MRSA 08/03/2024 06/03/2025 documented as of this encounter Care Teams Administrative Job Titles Relationship Specialty Start Date End Date Jonas Coleman MD [address] [address] [email or web address] PCP - General Family Medicine 04/28/23 12/30/23 Jin Rajan MD [address] [place] [phone] [email or web address] PCP - General Family Medicine 12/31/23 06/10/24 Isis Borges NP [address] [place] [address] [phone] PCP - General Nurse Practitioner 06/11/24 Jin Rajan MD [email or web address] Family Medicine 07/14/21 Alex Rider DO [address] [place] [address] [email or web address] Primary Oncologist Hematology and Oncology 09/17/22 Juan Du MD [address] [place] [address] [address] [place] [phone] [email or web address] Primary Oncologist Medical Oncology 10/08/22 Khadar Forde MD [address] [place] [address] 3 [place] [address] [email or web address] Radiation Oncology 10/10/22 Yasmeen Dixon, ADELA 55 [place] [address] [email or web address] [email or web address] Primary Infusion Nurse 12/09/22 Yusef Beck MBBS [address] [place] [phone] [email or web address] Medical Oncology 01/31/24 Alicia Franco, LENKA [address] [place] [phone] [email or web address] iCMP Plus Tribunal Member Nurse Practitioner 05/14/2406/24 Romain Cheng MD, PhD [address] [place] [address] [email or web address] Medical Oncology 05/12/25 Elizabet Quigley MD, PhD [address] [place] [phone] [email or web address] Surgical Oncology 04/24/25 documented as of this encounter Additional Source Comments The information contained in this document represents components of the legal health record. It is not the complete legal health record.[facility]
--- OUTSIDE RECORDS SUMMARY | 2025-09-25 17:01 | XMS_ITS | Encounter Summary ---
Author Organization [facility] Address [address] [address] Phone Care Team Providers Care Glass Maker Name Role Phone Jin Rajan MD Unavailable [phone] Becca Stubbs NP Unavailable [phone] Nora Hood MD Unavailable [phone] Becca Stubbs NP Primary Care Provider [phone] Alex Rider DO Unavailable [phone] Juan Du MD Unavailable [phone] Yasmeen Dixon RN Unavailable Al [email or web address]@[facility] Khadar Forde MD Unavailable [phone] Jody Fleming RN Unavailable [email or web address] Yasmeen Dixon RN Unavailable Al Sharona@[facility] Jonas Coleman MD Primary Care Prov ider Alicia Franco TELEVISION NEWS PRODUCER Unavailable +[phone] Roxana Fuchs RN Unavailable [phone] Mirlande Mai Unavailable [email or web address] Dawna Baugh [facility] Unavailable [phone] Jin Rajan MD Primary Care Provider [phone] Yusef Beck MBBS Unavailable [phone] Alicia Franco TELEVISION NEWS PRODUCER Unavailable Isis Borges CORPORATE BUYER Primary Care Provider Romain Cheng MD, PhD Unavailable [phone] Elizabet Quigley MD, PhD Unavailable [phone] Encounter Details Date Type Department Care Team (Latest Contact Info) Description 08/05/2022 Prep for Surgery [facility]UAL DEPARTMENT [address] [place] [address] Rocky Roche MD [address] [place] [address] [email or web address] Leiomyosarcoma (Primary Dx) Social History Tobacco Use Types Packs/Day Years [...] EST [facility] [address] [place] [address], 9th Floor, [address] [place] [address] Greyson Gilbert MD, PhD 55 [facility] [address] [place] [address] [email or web address] Scheduled Procedures Name Priority Associated Diagnoses Date/Ti me 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 documented as of this encounter Visit Diagnoses Diagnosis 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, site unspecified documented in this encounter Additional Health Concerns Infection Onset Date Last Indicated Resolved Time CoV-Presumed Comment:Per Note Documentation 09/28/2022 09/27/2022 12/15/202 2 4:26 PM EST CoV-Risk Comment:Per note documentation 12/28/2022 12/28/2022 9:53 AM EST CoV-Risk 12/07/2023 12/07/2023 12/18/2023 1:22 AM EST CoV-Risk 12/31/2023 12/31/2023 01/11/2024 1:22 AM EDT MRSA 08/03/2024 06/03/2025 documented as of this encounter Care Teams Glass Maker Relationship Specialty Start Date End Date Becca Stubbs CORPORATE BUYER [address] [place] [address] PCP - General Nurse Practitioner 05/08/22 04/27/23 Jonas Coleman MD [address] [place] [address] [email or web address] .[email or web address] PCP - General Family Medicine 04/28/23 12/30/23 Jin Rajan MD [address] [place] [phone] [email or web address] PCP - General Family Medicine 12/31/23 06/10/24 Isis Borges NP [address] [place] [address] PCP - General Nurse Practitioner 06/11/24 Jin Rajan MD [email or web address] Family Medicine 07/14/21 Becca Stubbs CORPORATE BUYER [address] [place] [address] Primary Care Physician 01/27/1610/12 Nora Hood MD [address] [place] [address] [email or web address] Primary Oncologist Medical Oncology 12/19/20 09/16/22 Alex Rider DO [address] [place] [address] [email or web address] Primary Oncologist Hematology and Oncology 09/17/22 Juan Du MD [address] [place] [address] [address] [place] [phone] [email or web address] Primary Oncologist Medical Oncology 10/08/22 Yasmeen Dixon RN [address] [place] [address] [email or web address] Primary Infusion Nurse 10/08/22 11/23/22 Khadar Forde MD [address] [place] [address] [email or web address] Radiation Oncology 10/10/22 Jody Fleming RN [address] [place] [address] [email or web address] Primary Infusion Nurse 11/24/22 12/08/22 Yasmeen Dixon RN [address] [place] [address] [email or web address]@[email or web address] Primary Infusion Nurse 12/09/22 Alicia Franco, TELEVISION NEWS PRODUCER [address] [place] [address] [email or web address] [employer] Plus Flight Follower Nurse Practitioner 09/26/2310/01 Roxana Fuchs, ADELA [address] [place] [address] [email or web address] [employer] Flight Follower 09/26/23 10/26/23 Mirlande Mai [address] [place] [address] [email or web address] i[employer] Plus Community Health Worker 09/26/23 10/26/23 Dawna Baugh, [facility] [address] [place] [address] [email or web address] [employer] Scrum Project Manager 09/26/23 10/26/23 Yusef Beck MBBS [address] [place] [phone] [email or web address] Medical Oncology 01/31/24 Alicia Franco, TELEVISION NEWS PRODUCER [address] [place] [address] [email or web address] [employer] Plus Flight Follower Nurse Practitioner 05/14/2406/24 Romain Cheng MD, PhD [address] [place] [address] [email or web address] Medical Oncology 05/12/25 Elizabet Quigley MD, PhD [address] [place] [phone] [email or web address] Surgical Oncology 04/24/25 documented as of this encounter Additional Source Comments The information contained in this document represents components of the legal health record. It is not the complete legal health record.[facility]
--- OUTSIDE RECORDS SUMMARY | 2025-09-25 17:01 | XMS_ITS | Encounter Summary ---
Author Organization [facility] Address [address] [address] Phone Care Team Providers Care Chauffeur Name Role Phone Jin Rajan MD Unavailable [phone] Alex Rider DO Unavailable [phone] Juan Du MD Unavailable [phone] Khadar Forde MD Unavailable [phone] Yasemen Dixon RN Unavailable Al [email or web address]@[email or web address] Jonas Coleman MD Primary Care Prov ider Alicia Franco SKIP MINER BLASTING Unavailable [phone] Roxana Fuchs RN Unavailable [phone] Mirlande Mai Unavailable [email or web address] Dawna Baugh [facility] Unavailable [phone] Jin Rajan MD Primary Care Provider [phone] Yusef Beck MBBS Unavailable [phone] Alicia Franco SKIP MINER BLASTING Unavailable [phone] Isis Borges NP Primary Care Provider Romain Cheng MD, PhD Unavailable [phone] Elizabet Quigley MD, PhD Unavailable [phone] Encounter Details Date Type Department Care Team ([facility] Contact Info) Description 06/22/2023 Procedure Pass [facility] [address] [place] [phone] Social History Tobacco Use Types Packs/Day Years [...] Upcoming Encounters Date Type Department Care Team ([facility] Contact Info) Description 10/18/2025 3:20 PM EST Office Visit [facility] [address] [place] [address], 9th Floor, [address] [place] [address] Greyson Gilbert MD, PhD 55 [facility] [address] [place] [phone] [email or web address] Scheduled Procedures Name Priority Associated Diagnoses Date/Ti me 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 documented as of this encounter Visit Diagnoses Not on filedocumented in this encounter Additional Health Concerns Infection Onset Date Last Indicated Resolved Time CoV-Risk 12/07/2023 12/07/2023 12/18/2023 1:22 AM EST CoV-Risk 12/31/2023 12/31/2023 01/11/2024 1:22 AM EDT MRSA 08/03/2024 06/03/2025 documented as of this encounter Care Teams Chauffeur Relationship Specialty Start Date End Date Jonas Coleman MD [address] [place] [address] [email or web address] .[email or web address] PCP - General Family Medicine 04/28/23 12/30/23 Jin Rajan MD [address] [place] [phone] [email or web address] PCP - General Family Medicine 12/31/23 06/10/24 Isis Borges NP [address] [place] [address] PCP - General Nurse Practitioner 06/11/24 Jin Rajan MD [email or web address] Family Medicine 07/14/21 Alex Rider DO [address] [place] [address] [email or web address] Primary Oncologist Hematology and Oncology 09/17/22 Juan Du MD [address] [place] [address] Y[address] [place] [phone] [email or web address] Primary Oncologist Medical Oncology 10/08/22 Khadar Forde MD [address] [place] [address] [address] [place] [address] [email or web address] Radiation Oncology 10/10/22 Yasmeen Dixon, ADELA [address] [place] [address] [email or web address] Primary Infusion Nurse 12/09/22 Alicia Franco, SKIP MINER BLASTING [address] [place] [phone] [email or web address] i[employer] Plus Concrete Buster Operator Nurse Practitioner 09/26/2310/01 Roxana Fuchs, ADELA [address] [place] [address] [email or web address] [employer] Plus Concrete Buster Operator 09/26/23 10/26/23 Mirlande Mai [facility] [address] [email or web address] iCMP Plus Community Health Worker 09/26/23 10/26/[address] [facility] [address] [place] [phone] [email or web address] iCMP Plus Packager Or Packer And Weigher 09/26/23 10/26/23 Yusef Beck MBBS [address] [place] [phone] [email or web address] Medical Oncology 01/31/24 Alicia Franco, SKIP MINER BLASTING [address] [place] [address] [email or web address] iC[employer] Plus Concrete Buster Operator Nurse Practitioner 05/14/2406/24 Romain Cheng MD, PhD [address] [place] [address] YAW-[address] [place] [address] [email or web address] Medical Oncology 05/12/25 Elizabet Quigley MD, PhD [address] [place] [phone] [email or web address] Surgical Oncology 04/24/25 documented as of this encounter Additional Source Comments The information contained in this document represents components of the legal health record. It is not the complete legal health record.[facility]
--- OUTSIDE RECORDS SUMMARY | 2025-09-25 17:01 | XMS_ITS | Encounter Summary ---
Author Organization [facility] Address [address] [employer] [facility] [address] [place] [address] Phone Care Team Providers Care Milk Drier Name Role Phone Jin Rajan MD Unavailable [phone] Alex Rider DO Unavailable [phone] Juan Du MD Unavailable Khadar Forde MD Unavailable Yasmeen Dixon RN Unavailable Al [email or web address] Yusef Beck MBBS Unavailable [phone] Isis Borges NP Primary Care Provider Romain Cheng MD, PhD Unavailable [phone] Elizabet Quigley MD, PhD Unavailable Encounter Details Date Type Department Care Team (Late st Contact Info) Description 05/09/2025 Procedure Pass [facility] PERIOPER[facility]IVE DEPT [address] [place] [phone] Social History Tobacco Use Types Packs/Day Years Used Date Smoking Tobacco: Never Smokeless Tobacco: Never Alcohol Use Standard Drinks/Week Comments Yes 2 (1 standard drink = 0.6 oz pur e alcohol) occ social use Home Health Assessment: Transportation Answer Date Recorded Lack of Transportation (Medical) No 05/11/2025 Lack of Transportation (Non-Medical) No 05/11/2025 Patient Unable or Declines to Respond No 05/11/2025 Education Answer Date Recorded Are you interested [...] uch as food, clothing, or medical care? Deferred 05/09/2025 In the past 12 months have y ou been in a relationship with a person who hurts, threatens, or tries to control you? Deferred 05/09/2025 Are you denied basic needs s uch as food, clothing, or medical care? Deferred 05/09/2025 In the past 12 months have y ou been in a relationship with a person who hurts, threatens, or tries to control you? 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 06/03/2025 documented as of this encounter Care Teams Milk Drier Relationship Specialty Start Date End Date Katerina Isisluke Wallace, VALENTÍN [address] [place] [address] PCP - General Nurse Practitioner 06/11/24 Jin Rajan MD [email or web address] Family Medicine 07/14/21 Alex Rider DO [address] [place] [address] [email or web address] Primary Oncologist Hematology and Oncology 09/17/22 Juan Du MD [address] [place] [address] [address] [place] [address] [email or web address] Primary Oncologist Medical Oncology 10/08/22 Khadar Forde MD [address] [place] [address] 3 [place] [address] [email or web address] Radiation Oncology 10/10/22 Yasmeen Dixon RN [address] [place] [address] [email or web address] Primary Infusion Nurse 12/09/22 Yusef Beck MBBS [address] [place] [address] [email or web address] Medical Oncology 01/31/24 Romain Cheng MD, PhD 55 [facility] [place] [address] [email or web address] Medical Oncology 05/12/25 Elizabet Quigley MD, PhD [address] [place] [phone] [email or web address] Surgical Oncology 04/24/25 documented as of this encounter Additional Source Comments The information contained in this document represents components of the legal health record. It is not the complete legal health record.[facility]
--- OUTSIDE RECORDS SUMMARY | 2025-09-25 17:01 | XMS_ITS | Encounter Summary ---
Author Organization [facility] Address [address] [address] Phone Care Team Providers Care Field Sales Engineer Name Role Phone Jin Rajan MD Primary Care Provider [phone] Jin Rajan MD Primary Care Provider [phone] Becca Stubbs NP Primary Care Provider [phone] Jin Rajan MD Unavailable [phone] Becca Stubbs CLINICAL DIETICIAN Unavailable [phone] Nora Hood MD Unavailable [phone] Jin Rajan MD Unavailable [phone] Becca Stubbs CLINICAL DIETICIAN Primary Care Provider [phone] Alex Rider DO Unavailable [phone] Juan Du MD Unavailable [phone] Yasmeen Dixon RN Unavailable Al [email or web address]@[email or web address] .[facility] Khadar Forde MD Unavailable [phone] Jody Fleming RN Unavailable [email or web address] Yasmeen Dixon RN Unavailable Al Sharona@[email or web address] .[facility] Jonas Coleman MD Primary Care Prov ider Alicia Franco BILLET WORKER Unavailable [phone] Roxana Fuchs RN Unavailable [phone] Mirlande Mai Unavailable [email or web address] Dawna Baugh [facility] Unavailable Jin Rajan MD Primary Care Provider Yusef Beck MBBS Unavailable Alicia Franco BILLET WORKER Unavailable [phone] Isis Borges CLINICAL DIETICIAN Primary Care Provider Romain Cheng MD, PhD Unavailable [phone] Elizabet Quigley MD, PhD Unavailable Encounter Details Date Type Department Care Team (Late Contact Info) Description 08/21/2018 Procedure Pass [facility], [address] [address] Social History Tobacco Use Types Packs/Day Years [...] Office Visit [facility] [address] [facility], 9th Floor, [address] [place] [address] Greyson Gilbert MD, PhD 55 [facility] [address] [place] [address] [email or web address] Scheduled Procedures Name [...] documented as of this encounter Care Teams Field Sales Engineer Relationship Specialty Start Date End Date Jin Rajan MD [email or web address] PCP - General Family Medicine 11/28/17 12/03/20 Jin Rajan MD [email or web address] PCP - General Family Medicine 12/04/20 07/13/21 Becca Stubbs NP [address] [place] [address] PCP - General Nurse Practitioner 07/14/21 05/07/22 Becca Stubbs NP [address] [place] [address] PCP - General Nurse Practitioner 05/08/22 04/27/23 Jonas Coleman MD [address] [place] [address] [email or web address] PCP - General Family Medicine 04/28/23 12/30/23 Jin Rajan MD [address] [place] [phone] [email or web address] PCP - General Family Medicine 12/31/23 06/10/24 Isis Borges, VALENTÍN [address] [place] [address] PCP - General Nurse Practitioner 06/11/24 Jin Rajan MD [email or web address] Family Medicine 07/14/21 Becca Stubbs NP [address] [place] [address] Primary Care Physician 01/27/1610/12 Nora Hood MD [address] [place] [address] [email or web address] Primary Oncologist Medical Oncology 12/19/20 09/16/22 Jin Rajan MD [address] [place] [address] [email or web address] Insurance Assigned Provider 08/08/21 09/05/21 Alex Rider DO [address] [place] [address] [email or web address]. [facility] Primary Oncologist Hematology and Oncology 09/17/22 Juan Du MD [address] [place] [address] [address] [place] [phone] [email or web address] Primary Oncologist Medical Oncology 10/08/22 Yasmeen Dixon, ADELA [address] [place] [address] [email or web address] Primary Infusion Nurse 10/08/22 11/23/22 Khadar Forde MD [address] [place] [address] [email or web address] Radiation Oncology 10/10/22 Jody Fleming RN [address] [place] [address] [email or web address] Primary Infusion Nurse 11/24/22 12/08/22 Yasmeen Dixon, ADELA [address] [place] [address] [email or web address]@[email or web address] Primary Infusion Nurse 12/09/22 Alicia Franco CNP [address] [place] [address] [email or web address] iCMP Plus Rehabilitation Inspector Nurse Practitioner 09/26/2310/01 Roxana Fuchs RN [address] [place] [address] [email or web address] iCMP Plus Rehabilitation Inspector 09/26/23 10/26/23 Mirlande Mai [address] [place] [address] [email or web address] iCMP Plus Community Health Worker 09/26/23 10/26/23 Dawna Baugh [facility] [address] [place] [phone] [email or web address] iCMP Plus Curator [employer] 09/26/23 10/26/23 Yusef Beck MBBS [address] [place] [phone] [email or web address] Medical Oncology 01/31/24 Alicia Franco, BILLET WORKER [address] [place] [address] [email or web address] i[employer] Plus Rehabilitation Inspector Nurse Practitioner 05/14/2406/24 Romain Cheng MD, PhD [address] [place] [phone] [email or web address]@[email or web address] Medical Oncology 05/12/25 Elizabet Quigley MD, PhD [address] [place] [phone] [email or web address]@[facility] Surgical Oncology 04/24/25 documented as of this encounter Additional Source Comments The information contained in this document represents components of the legal health record. It is not the complete legal health record.[facility]
--- OUTSIDE RECORDS SUMMARY | 2025-09-25 17:01 | XMS_ITS | Encounter Summary ---
Author Organization [facility] Address [address] [address] Phone Care Team Providers Care Senior Ssis Developer Name Role Phone Jin Rajan MD Unavailable +[phone] Becca Stubbs DIRECTOR OF SCIENCE Primary Care Provider + Alex Rider DO Unavailable +[phone] Juan Du MD Unavailable +[phone] Khadar Forde MD Unavailable +[phone] Yasmeen Dixon RN Unavailable Al [email or web address] [facility] Jonas Coleman MD Primary Care Prov ider + Alicia Franco CONSTRUCTION ASSISTANT Unavailable +[phone] Roxana Fuchs RN Unavailable +[phone] Mirlande Mai Unavailable [email or web address] Dawna Baugh LMHC Unavailable +[phone] Jin Rajan MD Primary Care Provider +[phone] Yusef Beck MBBS Unavailable +[phone] Alicia Franco CONSTRUCTION ASSISTANT Unavailable +[phone] Isis Borges DIRECTOR OF SCIENCE Primary Care Provider Romain Chneg MD, PhD Unavailable +[phone] Elizabet Quigley MD, PhD Unavailable Encounter Details Date Type Department Care Team (Late Contact Info) Description 03/14/2023 Procedure Pass [facility] PETCT Imaging, Donta 2 55 [facility], 2nd [place] [address] Social History Tobacco Use Types Packs/Day Years [...] Office Visit [facility], 9th Floor, [address] [place] [address] Greyson Gilbert MD, PhD 55 [facility] 7[address] [place] [address] Scheduled Procedures Name Priority Associated Diagnoses Date/Ti me 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 documented as of this encounter Visit Diagnoses Not on filedocumented in this encounter Additional Health Concerns Infection Onset Date Last Indicated Resolved Time CoV-Risk 12/07/2023 12/07/2023 12/18/2023 1:22 AM EST CoV-Risk 12/31/2023 12/31/2023 01/11/2024 1:22 AM EDT MRSA 08/03/2024 06/03/2025 documented as of this encounter Care Teams Senior Ssis Developer Relationship Specialty Start Date End Date Becca Stubbs NP [address] [place] [address] PCP - General Nurse Practitioner 05/08/22 04/27/23 Jonas Coleman MD 55 [place] [address] [email or web address] PCP - General Family Medicine 04/28/23 12/30/23 Jin Rajan MD [address] [place] [phone] [email or web address] PCP - General Family Medicine 12/31/23 06/10/24 Isis Borges NP [address] [place] [address] PCP - General Nurse Practitioner 06/11/24 Jin Rajan MD [email or web address] Family Medicine 07/14/21 Alex Rider DO 30 [place] [address] [email or web address] Primary Oncologist Hematology and Oncology 09/17/22 Juan Du MD [address] [place] [address] [address] [place] [phone] [email or web address] Primary Oncologist Medical Oncology 10/08/22 Khadar Forde MD 55 [facility] PH[address]IPS 3 [place] [address] [email or web address] Radiation Oncology 10/10/22 Yasmeen Dixon, ADELA 55 [place] [address] [email or web address] Primary Infusion Nurse 12/09/22 Alicia Franco, CONSTRUCTION ASSISTANT 55 [place] [address] [email or web address] iCMP Plus Lighting Fixtures Decorator Nurse Practitioner 09/26/2310/01 Roxana Fuchs, ADELA [address] [place] [address] [email or web address] iCMP Plus Lighting Fixtures Decorator 09/26/23 10/26/23 Mirlande Mai [address] [place] [address] [email or web address] iCMP Plus Community Health Worker 09/26/23 10/26/23 Dawna Baugh [facility] [address] [place] [address] [email or web address] iCMP Plus Contact Lens Inspector 09/26/23 10/26/23 Yusef Beck MBBS [address] [place] [phone] [email or web address] Medical Oncology 01/31/24 Alicia Franco, CONSTRUCTION ASSISTANT [address] [place] [address] [email or web address] iC[employer] Plus Lighting Fixtures Decorator Nurse Practitioner 05/14/2406/24 Romain Cheng MD, PhD 55 [facility] [address] [place] [address] [email or web address] Medical Oncology 05/12/25 Elizabet Quigley MD, PhD [address] [place] [phone] [email or web address] Surgical Oncology 04/24/25 documented as of this encounter Additional Source Comments The information contained in this document represents components of the legal health record. It is not the complete legal health record.[facility]
--- OUTSIDE RECORDS SUMMARY | 2025-09-25 17:01 | XMS_ITS | Encounter Summary ---
Author Organization [facility] Address [address] [address] Phone Care Team Providers Care Lumber Carrier Name Role Phone Jin Rajan MD Primary Care Provider [phone] Jin Rajan MD Primary Care Provider [phone] Becca Stubbs NP Primary Care Provider +[phone] Jin Rajan MD Unavailable +[phone] Becca Stubbs RETURNED CASE INSPECTOR Unavailable +[phone] Nora Hood MD Unavailable [phone] Jin Rajan MD Unavailable +[phone] Becca Stubbs RETURNED CASE INSPECTOR Primary Care Provider +[phone] Alex Rider DO Unavailable +[phone] Juan Du MD Unavailable +[phone] Yasmeen Dixon RN Unavailable Al [email or web address] .[facility] Khadar Forde MD Unavailable +[phone] Jody Fleming RN Unavailable [email or web address] Yasmeen Dixon RN Unavailable Al [email or web address] .[facility] Jonas Coleman MD Primary Care Prov ider Alicia Franco SKIVER UPPERS OR LININGS Unavailable +[phone] Roxana Fuchs RN Unavailable [phone] Mirlande Mai Unavailable [email or web address] Dawna Baugh [facility] Unavailable Jin Rajan MD Primary Care Provider Yusef Beck MBBS Unavailable Alicia Franco SKIVER UPPERS OR LININGS Unavailable [phone] Isis Borges RETURNED CASE INSPECTOR Primary Care Provider Romain Cheng MD, PhD Unavailable [phone] Elizabet Quigley MD, PhD Unavailable Encounter Details Date Type Department Care Team (Late Contact Info) Description 08/21/2018 Procedure Pass [facility], [address] [address] Social History Tobacco Use Types Packs/Day Years [...] 32 [facility], 9th Floor, [address] [place] [address] Greyson Gilbert MD, PhD [address] [facility] 7E [place] [address] [email or web address] Scheduled Procedures [...] documented as of this encounter Care Teams Lumber Carrier Relationship Specialty Start Date End Date Jin Rajan MD [email or web address] PCP - General Family Medicine 11/28/17 12/03/20 Jin Rajan MD [email or web address] PCP - General Family Medicine 12/04/20 07/13/21 Becca Stubbs NP 238 [place] [address] PCP - General Nurse Practitioner 07/14/21 05/07/22 Becca Stubbs NP [address] [place] [address] PCP - General Nurse Practitioner 05/08/22 04/27/23 Jonas Coleman MD [address] [place] [address] [email or web address] PCP - General Family Medicine 04/28/23 12/30/23 Jin Rajan MD [address] [place] [phone] [email or web address] PCP - General Family Medicine 12/31/23 06/10/24 Isis Borges, VALENTÍN [address] [place] [address] PCP - General Nurse Practitioner 06/11/24 Jin Rajan MD [email or web address] Family Medicine 07/14/21 Becca Stubbs NP [address] [place] [address] Primary Care Physician 01/27/1610/12 Nora Hood MD [address] [place] [address] [email or web address] Primary Oncologist Medical Oncology 12/19/20 09/16/22 Jin Rajan MD [address] [place] [address] [email or web address] Insurance Assigned Provider 08/08/21 09/05/21 Alex Rider DO 30 [place] [address] [email or web address] [facility] Primary Oncologist Hematology and Oncology 09/17/22 Juan Du MD [address] [place] [address] 9[address] [place] [phone] [email or web address] Primary Oncologist Medical Oncology 10/08/22 Yasmeen Dixon, ADELA 55 [place] [address] [email or web address] Primary Infusion Nurse 10/08/22 11/23/22 Khadar Forde MD [address] [place] [address] [email or web address] Radiation Oncology 10/10/22 Jody Fleming RN 55 [place] [address] [email or web address] Primary Infusion Nurse 11/24/22 12/08/22 Yasmeen Dixon, ADELA [address] [place] [address] [email or web address] Primary Infusion Nurse 12/09/22 Alicia Franco CNP [address] [place] [address] [email or web address] iCMP Plus Marble Rubber Nurse Practitioner 09/26/2310/01 Roxana Fuchs RN [address] [place] [address] [email or web address] iCMP Plus Marble Rubber 09/26/23 10/26/23 Mirlande Mai [address] [place] [address] [email or web address] iCMP Plus Community Health Worker 09/26/23 10/26/23 Dawna Baugh [facility] [address] [place] [address] [email or web address] iCMP Plus Reflow Operator 09/26/23 10/26/23 Yusef Beck MBBS [address] [place] [phone] [email or web address] Medical Oncology 01/31/24 Alicia Franco, SKIVER UPPERS OR LININGS [address] [place] [address] [email or web address] iCMP Plus Marble Rubber Nurse Practitioner 05/14/2406/24 Romain Cheng MD, PhD [address] [place] [address] [email or web address] Medical Oncology 05/12/25 Elizabet Quigley MD, PhD [address] [place] [phone] [email or web address] Surgical Oncology 04/24/25 documented as of this encounter Additional Source Comments The information contained in this document represents components of the legal health record. It is not the complete legal health record.[facility]
--- OUTSIDE RECORDS SUMMARY | 2025-09-25 17:01 | XMS_ITS | Encounter Summary ---
Author Organization [facility] Address [address] [employer] [address] [address] Phone Care Team Providers Care Pet Care Assistant Name Role Phone Jin Rajan MD Unavailable +[phone] Becca Stubbs EMERGENCY MEDICAL DISPATCHER Primary Care Provider + Alex Rider DO Unavailable +[phone] Juan Du MD Unavailable +[phone] Khadar Forde MD Unavailable [phone] Yasmeen Dixon RN Unavailable Al [email or web address] Jonas Coleman MD Primary Care Prov ider + Alicia Franco VOTING MACHINE MECHANIC Unavailable +[phone] Roxana Fuchs RN Unavailable [phone] Mirlande Mai Unavailable [email or web address] Dawna Baugh LMHC Unavailable [phone] Jin Rajan MD Primary Care Provider +[phone] Yusef Beck MBBS Unavailable +[phone] Alicia Franco VOTING MACHINE MECHANIC Unavailable +[phone] Isis Borges EMERGENCY MEDICAL DISPATCHER Primary Care Provider Romain Cheng MD, PhD Unavailable [phone] Elizabet Quigley MD, PhD Unavailable [phone] Encounter Details Date Type Department Care Team (Late Contact Info) Description 03/17/2023 Procedure Pass [facility], Ct Scan - [address] [address] Social History Tobacco Use Types Packs/Day Years [...] Office Visit Center for [facility] 32 [facility], 9th Floor, [address] [place] [address] Greyson Gilbert MD, PhD 55 [facility] 7[address] [place] [address] [email or web address] Scheduled Procedures Name Priority Associated Diagnoses Date/Ti me 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 documented as of this encounter Visit Diagnoses Not on filedocumented in this encounter Additional Health Concerns Infection Onset Date Last Indicated Resolved Time CoV-Risk 12/07/2023 12/07/2023 12/18/2023 1:22 AM EST CoV-Risk 12/31/2023 12/31/2023 01/11/2024 1:22 AM EDT MRSA 08/03/2024 06/03/2025 documented as of this encounter Care Teams Pet Care Assistant Relationship Specialty Start Date End Date Becca Stubbs EMERGENCY MEDICAL DISPATCHER [address] [place] [address] PCP - General Nurse Practitioner 05/08/22 04/27/23 Jonas Coleman MD 55 [place] [address] [email or web address] PCP - General Family Medicine 04/28/23 12/30/23 Jin Rajan MD [address] [place] [phone] [email or web address] PCP - General Family Medicine 12/31/23 06/10/24 Isis Borges NP [address] [place] [address] PCP - General Nurse Practitioner 06/11/24 Jin Rajan MD [email or web address] Family Medicine 07/14/21 Alex Rider DO 30 [place] [address] [email or web address] Primary Oncologist Hematology and Oncology 09/17/22 Juan Du MD [address] [place] [address] [address] [place] [phone] [email or web address] Primary Oncologist Medical Oncology 10/08/22 Khadar Forde MD [address] [place] [address] [address] [place] [address] [email or web address] Radiation Oncology 10/10/22 Yasmeen Dixon, ADELA 55 [place] [address] [email or web address] Primary Infusion Nurse 12/09/22 Alicia Franco, VOTING MACHINE MECHANIC 55 [place] [address] [email or web address] iCMP Plus Railroad Cross[employer] Protection Maintainer Nurse Practitioner 09/26/2310/01 Roxana Fuchs, ADELA [address] [place] [address] [email or web address] iCMP Plus Railroad Crossing Protection Maintainer 09/26/23 10/26/23 Mirlande Mai [address] [place] [address] [email or web address] iCMP Plus Community Health Worker 09/26/23 10/26/23 Dawna Baugh, [facility] [address] [place] [address] [email or web address] iC[employer] Plus [employer] Division Chair 09/26/23 10/26/23 Yusef Beck MBBS [address] [place] [phone] [email or web address] Medical Oncology 01/31/24 Alicia Franco, VOTING MACHINE MECHANIC [address] [place] [address] [email or web address] iCMP Plus Railroad Crossing Protection Maintainer Nurse Practitioner 05/14/2406/24 Romain Cheng MD, PhD 55 [facility] [address] [place] [address] [email or web address] Medical Oncology 05/12/25 Elizabet Quigley MD, PhD [address] [place] [phone] [email or web address] Surgical Oncology 04/24/25 documented as of this encounter Additional Source Comments The information contained in this document represents components of the legal health record. It is not the complete legal health record.[facility]
--- OUTSIDE RECORDS SUMMARY | 2025-09-25 17:01 | XMS_ITS | Encounter Summary ---
Author Organization [facility] Address [address] [address] Phone Care Team Providers Care Building And Grounds Supervisor Name Role Phone Jin Rajan MD Unavailable +[phone] Becca Stubbs APPLIED EXERCISE PHYSIOLOGIST Primary Care Provider + Alex Rider DO Unavailable +[phone] Juan Du MD Unavailable +[phone] Khadar Forde MD Unavailable +[phone] Yasmeen Dixon RN Unavailable Al [email or web address] .[facility] Jonas Coleman MD Primary Care Prov ider + Alicia Franco BUNG SEWER Unavailable +[phone] Roxana Fuchs RN Unavailable [phone] Mirlande Mai Unavailable [email or web address] Dawna Baugh LMHC Unavailable [phone] Jin Rajan MD Primary Care Provider +[phone] Yusef Beck MBBS Unavailable +[phone] Alicia Franco BUNG SEWER Unavailable +[phone] Isis Borges APPLIED EXERCISE PHYSIOLOGIST Primary Care Provider Romain Cheng MD, PhD Unavailable +[phone] Elizabet Quigley MD, PhD Unavailable [phone] Encounter Details Date Type Department Care Team (Late Contact Info) Description 03/17/2023 Procedure Pass [facility], [address] [address] Social History Tobacco Use Types Packs/Day Years [...] Office Visit Center for Breast Cancer 32 [facility], 9th Floor, [address] [place] [address] Greyson Gilbert MD, PhD 55 [facility] 7[address] [place] [address] [email or web address] Scheduled Procedures Name Priority Associated Diagnoses Date/Ti me 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 documented as of this encounter Visit Diagnoses Not on filedocumented in this encounter Additional Health Concerns Infection Onset Date Last Indicated Resolved Time CoV-Risk 12/07/2023 12/07/2023 12/18/2023 1:22 AM EST CoV-Risk 12/31/2023 12/31/2023 01/11/2024 1:22 AM EDT MRSA 08/03/2024 06/03/2025 documented as of this encounter Care Teams Building And Grounds Supervisor Relationship Specialty Start Date End Date Becca Stubbs NP [address] [place] [address] PCP - General Nurse Practitioner 05/08/22 04/27/23 Jonas Coleman MD [address] [place] [phone] [email or web address] PCP - General Family Medicine 04/28/23 12/30/23 Jin Rajan MD [address] [place] [phone] [email or web address] PCP - General Family Medicine 12/31/23 06/10/24 Isis Borges NP [address] [place] [address] PCP - General Nurse Practitioner 06/11/24 Jin Rajan MD [email or web address] Family Medicine 07/14/21 Alex Rider DO 30 [place] [address] [email or web address]. [facility] Primary Oncologist Hematology and Oncology 09/17/22 Juan Du MD [address] [place] [address] [address] [place] [phone] [email or web address] Primary Oncologist Medical Oncology 10/08/22 Khadar Forde MD [address] [place] [address] [address] [place] [address] [email or web address] Radiation Oncology 10/10/22 Yasmeen Dixon, RN 55 [place] [address] [email or web address] Primary Infusion Nurse 12/09/22 Alicia Franco, BUNG SEWER 55 [place] [address] [email or web address] iCMP Plus Slat Pickler Nurse Practitioner 09/26/2310/01 Roxana Fuchs, ADELA [address] [place] [address] [email or web address] iCMP Plus Slat Pickler 09/26/23 10/26/23 Mirlande Mai [address] [place] [address] [email or web address] iCMP Plus Community Health Worker 09/26/23 10/26/23 Dawna Baugh, [facility] [address] [place] [address] [email or web address] iCMP Plus Fisheries Technical Officer 09/26/23 10/26/23 Yusef Beck MBBS [address] [place] [phone] [email or web address] Medical Oncology 01/31/24 Alicia Franco, BUNG SEWER [address] [place] [address] [email or web address] iCMP Plus Slat Pickler Nurse Practitioner 05/14/2406/24 Romain Cheng MD, PhD 55 [facility] [address] [place] [address] [email or web address] Medical Oncology 05/12/25 Elizabet Quigley MD, PhD [address] [place] [phone] [email or web address] Surgical Oncology 04/24/25 documented as of this encounter Additional Source Comments The information contained in this document represents components of the legal health record. It is not the complete legal health record.[facility]
--- OUTSIDE RECORDS SUMMARY | 2025-09-25 17:01 | XMS_ITS | Encounter Summary ---
Author Organization [facility] Address [address] [address] Phone Care Team Providers Care Button Breaker Name Role Phone Jin Rajan MD Primary Care Provider [phone] Jin Rajan MD Primary Care Provider [phone] Becca Stubbs NP Primary Care Provider [phone] Jin Rajan MD Unavailable [phone] Becca Stubbs COST CLERK Unavailable [phone] Nora Hood MD Unavailable [phone] Jin Rajan MD Unavailable [phone] Becca Stubbs COST CLERK Primary Care Provider [phone] Alex Rider DO Unavailable [phone] Juan Du MD Unavailable [phone] Yasmeen Dixon RN Unavailable [email or web address] [email or web address] Khadar Forde MD Unavailable [phone] Jody Fleming RN Unavailable [email or web address] Yasmeen Dixon RN Unavailable [email or web address] .[facility] Jonas Coleman MD Primary Care Prov ider Alicia Franco PHARMACIST PER DIEM Unavailable [phone] Roxana Fuchs RN Unavailable [phone] Mirlande Mai Unavailable [email or web address] Dawna Baugh [facility] Unavailable [phone] Jin Rajan MD Primary Care Provider Yusef Beck MBBS Unavailable [phone] Alicia Franco PHARMACIST PER DIEM Unavailable [phone] Isis Borges NP Primary Care Provider Romain Cheng MD, PhD Unavailable [phone] Elizabet Quigley MD, PhD Unavailable [phone] Reason for Referral * MRI/CAT Scan - Closed Specialty Diagnoses / Procedures Referred By Contac t Referred To Contact Radiology Diagnoses 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 Procedures MRI Pelvis (GI/) Becca Stubbs NP Phone: tel: Referral ID Status Reason Start Date Expiration Date Visits Re quested Visits Authorized [id number] Closed 08/21/2018 08/21/2019 1 1 * MRI/CAT Scan - Closed Specialty Diagnoses / Procedures Referred By Contac t Referred To Contact Radiology Diagnoses 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 Procedures MRI Abdomen Becca Stubbs NP Phone: tel: Referral ID Status Reason Start Date Expiration Date Visits Re quested Visits Authorized [id number] Closed 08/21/2018 08/21/2019 1 1 * MRI/CAT Scan - Closed Specialty Diagnoses / Procedures Referred By Contac t Referred To Contact Radiology Diagnoses 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 Procedures MRI Chest Becca Stubbs NP Phone: tel: Referral ID Status Reason Start Date Expiration Date Visits Re quested Visits Authorized [id number] Closed 08/21/2018 08/21/2019 1 1 Encounter Details Date Type Department Care Team ([facility] Contact Info) Description 08/21/2018 Ancillary Orders Virtual Department [address] [place] [address] Becca Stubbs NP [address] [place] [address] Li-Fraumeni syndrome; Genetic susceptibility to malignant neoplasm of breast Social History Tobacco Use Types Packs/Day Years [...] Office Visit [facility] [address] [facility], 9th Floor, [address] [place] [address] Greyson Gilbert MD, PhD [address] [facility] [address] [place] [address] [email or web address] Scheduled Procedures Name Priority Associated Diagnoses Date/Ti me 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 documented as of this encounter Results * MRI PELVIS WITH AND WITHOUT CONTRAST (09/08/2018 4:47 PM EST) Anatomical Region Laterality Modality Pelvis Magnetic Resonan ce 09/08/2018 4:53 PM EST Impressions 09/08/2018 5:30 PM EST Enlarging right ovarian cyst over time with perceptible wall but without internal nodularity or worrisome enhancement. Probable small endocervical fibroid. [id number] Edited by: Eleanor Rubio on 09/08/2018 5:12 PM Narrative 09/08/2018 5:30 PM EST HISTORY: Li-Fraumeni syndrome. Ovarian cysts. COMPARISON: Several prior, most recent April 01, 2017. TECHNIQUE: Axial T1, T2, STIR and diffusion imaging, and sagittal and coronal T2-weighted imaging is obtained precontrast. T1 fat-saturated sequence then obtained in the axial plane pre- and postcontrast followed by coronal and sagittal T1- weighted fat-saturated sequences. FINDINGS: Right ovarian cyst continues to enlarge slightly, now measured at 2.6 x 1.9 x 3.1 cm compared to 2.2 x 1.6 x 1.8 cm last year. Wall is perceptible but no nodularity. There is restricted diffusion within it but that does not offer significant prognostic information. Tiny cysts in an unenlarged left ovary. Neither ovary appears otherwise enlarged. Multiple Nabothian cysts noted including one measuring just over a centimeter. At the upper margin of the endocervical canal there is a T2 hypointense mass which follows cervical muscle signal and measures approximately 10 x 12 x 9 mm. This may be a small endocervical leiomyoma. It does not appear to enhance differently than surrounding tissue and is retrospectively present on prior studies of 2013 and 2016 without prominent enlargement. Uterus not enlarged. IUD remains appropriately positioned in anteverted uterus. No adenopathy. No free fluid. No bowel-containing hernias. No worrisome marrow signal changes. Procedure Note Latrice Mckay MD - 09/08/2018 HISTORY: Li-Fraumeni syndrome. Ovarian cysts. COMPARISON: Several prior, most recent April 01, 2017. TECHNIQUE: Axial T1, T2, STIR and diffusion imaging, and sagittal andcoronal T2-weighted imaging is obtained precontrast. T1 fat-saturatedsequence then obtained in the axial plane pre- and postcontrast followedby coronal and sagittal T1- weighted fat-saturated sequences. FINDINGS: Right ovarian cyst continues to enlarge slightly, now measured at 2.6 x1.9 x 3.1 cm compared to 2.2 x 1.6 x 1.8 cm last year. Wall is perceptiblebut no nodularity. There is restricted diffusion within it but that doesnot offer significant prognostic information. Tiny cysts in an unenlargedleft ovary. Neither ovary appears otherwise enlarged. Multiple Nabothian cysts noted including one measuring just over acentimeter. At the upper margin of the endocervical canal there is a [id number] mass which follows cervical muscle signal and measuresapproximately 10 x 12 x 9 mm. This may be a small endocervical leiomyoma.It does not appear to enhance differently than surrounding tissue and isretrospectively present on prior studies of 2013 and 2016 withoutprominent enlargement. Uterus not enlarged. IUD remains appropriatelypositioned in anteverted uterus. No adenopathy. No free fluid. No bowel-containing hernias. No worrisomemarrow signal changes. IMPRESSION: Enlarging right ovarian cyst over time with perceptible wall but withoutinternal nodularity or worrisome enhancement. Probable small endocervicalfibroid. [id number] Edited by: Eleanor Rubio on 09/08/2018 5:12 PM Becca Stubbs NP IMG MR PELVIS Final Result * MRI CHEST WITH AND WITHOUT CONTRAST (09/08/2018 4:31 PM EST) Anatomical Region Laterality Modality Chest Magnetic Resonan ce 09/08/2018 4:40 PM EST Impressions 09/08/2018 5:07 PM EST No worrisome interval change. Density in the lateral left base appears to follow the distal margin of the fissure and is probably chronic partial atelectatic change and similar as far back as 2013. [id number] Edited by: Eleanor Rubio on 09/08/2018 4:57 PM Narrative 09/08/2018 5:07 PM EST HISTORY: Breast cancer. Adrenal cancer. Prior abnormal chest MRI. COMPARISON: April 01, 2017. Prior MRI abdomen studies as far back as July 2014. Chest CT August 2007. TECHNIQUE: Axial T2, opposed phase imaging, STIR, T1 fat sat pre-and postcontrast imaging obtained. FINDINGS: There are bilateral silicone implants with evidence of intracapsular rupture on the left. Small amounts of water are seen in the silicone and there is a keyhole sign present. This is unchanged. No pleural or pericardial effusion. Some chronic presumed atelectatic changes at the lingula. No progressive mass. This is not seen on the prior chest CT but appears largely unchanged since abdomen MR as far back as 2013. I do not believe this warrants additional follow-up based on the imaging appearance alone. No vascular findings of concern. Visualized hepatic parenchyma unremarkable. No clearly worrisome marrow signal changes or enhancement. No adenopathy seen. Procedure Note Latrice Mckay MD - 09/08/2018 HISTORY: Breast cancer. Adrenal cancer. Prior abnormal chest MRI. COMPARISON: April 01, 2017. Prior MRI abdomen studies as far back asSept2013. Chest CT August 2007. TECHNIQUE: Axial T2, opposed phase imaging, STIR, T1 fat sat pre-andpostcontrast imaging obtained. FINDINGS: There are bilateral silicone implants with evidence of intracapsularrupture on the left. Small amounts of water are seen in the silicone andthere is a keyhole sign present. This is unchanged. No pleural or pericardial effusion. Some chronic presumed atelectaticchanges at the lingula. No progressive mass. This is not seen on the priorchest CT but appears largely unchanged since abdomen MR as far back po1948. I do not believe this warrants additional follow-up based on theimaging appearance alone. No vascular findings of concern. Visualizedhepatic parenchyma unremarkable. No clearly worrisome marrow signalchanges or enhancement. No adenopathy seen. IMPRESSION: No worrisome interval change. Density in the lateral left base appears tofollow the distal margin of the fissure and is probably chronic partialatelectatic change and similar as far back as 2013. [id number] Edited by: Eleanor Rubio on 09/08/2018 4:57 PM Becca Stubbs COST CLERK IMG MR CHEST Final Result * MRI ABDOMEN WITH AND WITHOUT CONTRAST (09/07/2018 10:23 AM EST) Anatomical Region Laterality Modality Abdomen Magnetic Resonan ce 09/07/2018 11:0 1 AM EST Impressions 09/07/2018 11:11 AM EST Stable small right hepatic lobe cavernous hemangiomas without evidence of intra-abdominal or retroperitoneal tumor recurrence or other significant interval change from 04/01/2017. POS [id number] Narrative 09/07/2018 11:11 AM EST COMPARISON:04/01/2017 MRI TECHNIQUE: Exam performed on a 1.5 Vanessa high-field MRI scanner. Axial T1 in and out of phase, T2, extended TE T2, and T1 with fat suppression, coronal T2, followed by post-gadolinium multi-phase axial T1 series with fat suppression sequences were obtained through the liver. FINDINGS: The small chronic cavernous hemangioma in the right hepatic lobe is stable. No new hepatic mass or cyst apparent. No perihepatic ascites or gross biliary distention. Portal vein enhances normally as do the hepatic veins. No mass lesion is identified in the splenectomy or left nephrectomy or adrenalectomy beds. Right adrenal remains within normal limits in appearance. Pancreatic tail again extends into the left nephrectomy bed without pancreatic mass, duct dilatation, or abnormal enhancement detected. Right kidney is stable in appearance. Chronic post-surgical defect the left posterior lateral abdominal wall. Visualized bowel is unremarkable. No evidence of aortic aneurysm. No grossly enlarged mesenteric or retroperitoneal lymph nodes are detected. No abdominal wall mass. No significant skeletal lesion detected. No free fluid noted at the lung bases. Procedure Note Marleen Yuan MD - 09/07/2018 COMPARISON:04/01/2017 MRI TECHNIQUE: Exam performed on a 1.5 Vanessa high-field MRI scanner. Axial T1in and out of phase, T2, extended TE T2, and T1 with fat suppression,coronal T2, followed by post-gadolinium multi-phase axial T1 series withfat suppression sequences were obtained through the liver. FINDINGS: The small chronic cavernous hemangioma in the right hepatic lobe isstable. No new hepatic mass or cyst apparent. No perihepatic ascites orgross biliary distention. Portal vein enhances normally as do the hepaticveins. No mass lesion is identified in the splenectomy or left nephrectomy oradrenalectomy beds. Right adrenal remains within normal limits inappearance. Pancreatic tail again extends into the left nephrectomy bedwithout pancreatic mass, duct dilatation, or abnormal enhancementdetected. Right kidney is stable in appearance. Chronic post-surgical defect theleft posterior lateral abdominal wall. Visualized bowel is unremarkable.No evidence of aortic aneurysm. No grossly enlarged mesenteric orretroperitoneal lymph nodes are detected. No abdominal wall mass. No significant skeletal lesion detected. No free fluid noted at the lungbases. IMPRESSION: Stable small right hepatic lobe cavernous hemangiomas without evidence ofintra-abdominal or retroperitoneal tumor recurrence or other significantinterval change from 04/01/2017. 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 Genetic susceptibility to malignant neoplasm of breast 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 Genetic susceptibility to malignant neoplasm of breast 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 Genetic susceptibility to malignant neoplasm of breast documented in this encounter Additional Health Concerns Infection Onset Date Last Indicated Resolved Time CoV-Risk 07/14/2021 07/14/2021 07/24/2021 1:23 AM EDT CoV-Presumed Comment:Per Note Documentation 09/28/2022 09/27/2022 4:26 PM EST CoV-Risk Comment:Per note documentation 12/28/2022 12/28/2022 9:53 AM EST CoV-Risk 12/07/2023 12/07/2023 12/18/2023 1:22 AM EST CoV-Risk 12/31/2023 12/31/2023 01/11/2024 1:22 AM EDT MRSA 08/03/2024 06/03/2025 documented as of this encounter Care Teams Button Breaker Relationship Specialty Start Date End Date Jin Rajan MD PCP - General Family Medicine 11/28/17 12/03/20 Jin Rajan MD [email or web address] PCP - General Family Medicine 12/04/20 07/13/21 Becca Stubbs NP [address] [place] [address] PCP - General Nurse Practitioner 07/14/21 05/07/22 Becca Stubbs NP [address] [place] [address] PCP - General Nurse Practitioner 05/08/22 04/27/23 Jonas Coleman MD [address] [place] [address] [email or web address] PCP - General Family Medicine 04/28/23 12/30/23 Jin Rajan MD [address] [place] [phone] [email or web address] PCP - General Family Medicine 12/31/23 06/10/24 Isis Borges NP [address] [place] [address] PCP - General Nurse Practitioner 06/11/24 Jin Rajan MD [email or web address] Family Medicine 07/14/21 Becca Stubbs NP [address] [place] [address] Primary Care Physician 01/27/1610/12 Nora Hood MD [address] [place] [address] @[email or web address] Primary Oncologist Medical Oncology 12/19/20 09/16/22 Jin Rajan MD [address] [place] [address] [email or web address] Insurance Assigned Provider 08/08/21 09/05/21 Alex Rider DO [address] [place] [address] [email or web address] Primary Oncologist Hematology and Oncology 09/17/22 Juan Du MD [address] [place] [address] [address] [phone] [email or web address] Primary Oncologist Medical Oncology 10/08/22 Yasmeen Dixon RN [address] [place] [address] [email or web address] Primary Infusion Nurse 10/08/22 11/23/22 Khadar Forde MD [address] [place] [address] [email or web address] Radiation Oncology 10/10/22 Jody Fleming RN [address] [place] [address] [email or web address] Primary Infusion Nurse 11/24/22 12/08/22 Yasmeen Dixon RN [address] [place] [address] [email or web address] Primary Infusion Nurse 12/09/22 Alicia Franco, PHARMACIST PER DIEM [address] [place] [address] [email or web address] [employer] Lead Case Manager Nurse Practitioner 09/26/2310/01 Roxana Fuchs, RN [address] [place] [address] [email or web address] [employer] Lead Case Manager 09/26/23 10/26/23 Mirlande Mai [address] [place] [address] [email or web address] [employer] Plus Community Health Worker 09/26/23 10/26/23 [facility] [address] [place] [address] [email or web address] [employer] High Raw Sugar Boiler 09/26/23 10/26/23 Yusef Beck MBBS [address] [place] [phone] [email or web address] 01/31/24 Alicia Franco, PHARMACIST PER DIEM [address] [place] [address] [email or web address] [employer] Lead Case Manager Nurse Practitioner 05/14/2406/24 Romain Cheng MD, PhD [address] [place] [address] [email or web address] Medical Oncology 05/12/25 Elizabet Quigley MD, PhD [address] [place] [phone] [email or web address] Surgical Oncology 04/24/25 documented as of this encounter Additional Source Comments The information contained in this document represents components of the legal health record. It is not the complete legal health record.[facility]
--- OUTSIDE RECORDS SUMMARY | 2025-09-25 17:02 | XMS_ITS | Encounter Summary ---
Author Organization [facility] Address [address] [address] Phone Care Team Providers Care Manager Of Procurement Name Role Phone Jin Rajan MD Unavailable [phone] Becca Stubbs APPRAISAL SPECIALIST Primary Care Provider + Alex Rider DO Unavailable [phone] Juan Du MD Unavailable [phone] Yasmeen Dixon RN Unavailable [email or web address] [facility] Khadar Forde MD Unavailable [phone] Jody Fleming RN Unavailable [email or web address] Yasmeen Dixon RN Unavailable [email or web address] [email or web address] Jonas Coleman MD Primary Care Prov ider + Alicia Franco ACQUISITIONS EDITOR Unavailable [phone] Roxana Fuchs RN Unavailable [phone] Mirlande Mai Unavailable [email or web address] Dawna Baugh LM Unavailable [phone] Jin Rajan MD Primary Care Provider [phone] Yusef Beck MBBS Unavailable [phone] Alicia Franco ACQUISITIONS EDITOR Unavailable [phone] KaterinaIsis Wallace APPRAISAL SPECIALIST Primary Care Provider Romain Cheng MD, PhD Unavailable [phone] Elizabet Quigley MD, PhD Unavailable [phone] Encounter Details Date Type Department Care Team (Late Contact Info) Description 11/02/2022 Procedure Pass [facility] PERIOPERATIVE DEPT [address] [place] [phone] Social History Tobacco Use Types Packs/Day Years [...] PM EST documented as of this encounter Functional Status * Calculated C-SSRS Risk Score (Lifetime/Recent) Answer Date of Assessment Author No Risk Indicated 11/03/2022 12:00 PM EST Mary Kay Ordaz RN * Braxton Suicide Severity Rating Scale (Screener/Recent Self-Report) Question Answer Date of Assessment Author 1. Wish to be (Past 1 Month) No 11/03/2022 12:00 PM EST Mary Kay Wen, ADELA 2. Non-Specific Active Suicidal Thoughts (Past 1 Month) No 11/03/2022 12:00 PM EST Mary Kay Wen, ADELA 6. Suicidal Behavior (Lifetime) No 11/03/2022 12:00 PM EST Mary Kay Wen, ADELA documented as of this encounter Plan of Treatment Upcoming Encounters Date Type Department Care Team (Late Contact Info) Description 10/18/2025 3:20 PM EST Office [facility] [address] [place] [address], 9th Floor, [address] [place] [address] Greyson Gilbert MD, PhD [address] [address] [email or web address] Scheduled Procedures Name Priority Associated Diagnoses Date/Ti [...] documented as of this encounter Care Teams Manager Of Procurement Relationship Specialty Start Date End Date Becca Stubbs NP [address] [place] [address] PCP - General Nurse Practitioner 05/08/22 04/27/23 Jonas Coleman MD [address] [place] [address] [email or web address] PCP - General Family Medicine 04/28/23 12/30/23 Jin Rajan MD [address] [place] [phone] [email or web address] PCP - General Family Medicine 12/31/23 06/10/24 Isis Borges NP [address] [place] [address] PCP - General Nurse Practitioner 06/11/24 Jin Rajan MD [email or web address] Family Medicine 07/14/21 Alex Rider DO [address] [place] [address] [email or web address] Primary Oncologist Hematology and Oncology 09/17/22 Juan Du MD [address] [place] [address] [address] [place] [phone] [email or web address] Primary Oncologist Medical Oncology 10/08/22 Yasmeen Dixon, ADELA [address] [place] [phone] [email or web address] Primary Infusion Nurse 10/08/22 11/23/22 Khadar Fored MD [address] [place] [address] [email or web address] Radiation Oncology 10/10/22 Jody Fleming RN [address] [place] [address] [email or web address] Primary Infusion Nurse 11/24/22 12/08/22 Yasmeen Dixon, ADELA [address] [place] [phone] [email or web address] Primary Infusion Nurse 12/09/22 Alicia Franco, ACQUISITIONS EDITOR [address] [place] [address] [email or web address] [employer] Pharmaceutical Engineer Nurse Practitioner 09/26/2310/01 Roxana Fuchs, ADELA [address] [place] [address] [email or web address] [employer] Pharmaceutical Engineer 09/26/23 10/26/23 Mirlande Mai [address] [place] [address] [email or web address] [employer] Community Health Worker 09/26/23 10/26/23 Dawna Baugh, [facility] [address] [place] [address] [email or web address] [employer] Comic Book Designer 09/26/23 10/26/23 Yusef Beck MBBS [address] [place] [phone] [email or web address] Medical Oncology 01/31/24 Alicia Franco, LENKA [address] [place] [address] [email or web address] [employer] Plus Pharmaceutical Engineer Nurse Practitioner 05/14/2406/24 Romain Cheng MD, PhD [address] [place] [address] [email or web address] Medical Oncology 05/12/25 Elizabet Quigley MD, PhD [address] [place] [phone] [email or web address] Surgical Oncology 04/24/25 documented as of this encounter Additional Source Comments The information contained in this document represents components of the legal health record. It is not the complete legal health record.[facility]
--- OUTSIDE RECORDS SUMMARY | 2025-09-25 17:02 | XMS_ITS | Clinical Summary ---
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 Yusef Beck MBBS Unavailable [phone] Isis Borges NP Primary Care Provider Romain Cheng MD, PhD Unavailable [phone] Elizabet Quigley MD, PhD Unavailable Allergies Active Allergy Reactions Criticality Noted Date Comments Sulfamethoxazole-Trim ethoprim Rash Low 07/14/2021 Oxycodone Unknown,Nausea and/o r Vomiting 10/19/2011 Converted from Generic Allergy: Percocet Medications citalopram (CELEXA) 40 MG tablet Take 40 mg by mouth daily. 1 Active levothyroxine (SYNTHROID, LEVOTHROID) 137 MCG tablet Take 137 mcg by mouth daily. 1 Active acetaminophen (TYLENOL) 500 MG tablet Take 500 mg by mouth every 6 (six) hours as needed for pain (specific location in comments). 5 Active oxyCODONE 5 MG immediate release tabletIndicatio ns:Post-op pain Take 1 tablet (5 mg total) by mouth every 6 (six) hours as needed for pain (specific location in comments) (s/p resection of back sarcoma, pain at drain site). 5 tablet 5 Active Active Problems Patient Care Coordination No te Formatting of this note migh t be different from the original. 01/19/2024. Pt unable to fill Dilaudid 2 mg ,medication on back order. PCP prescribed hydrocodone 5/325 acetaminophen. Pt picked up 01/18/2024. 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 R196*) Pulmonary embolus 02/04/2024 Assessment & Plan (02/04/2024 1:40 PM EDT): IMPRESSION: This is a 53-year-old with an incidental finding of small PE, diagnosed on surveillance CT scans. It was felt to be secondary to PORT. She does not have any prior history of DVT or PE. DISCUSSION: I discussed overall impression, natural history of the disease and further management in this regard. Patient is not on any active cancer therapy at this time. She does not need the port anymore. She is scheduled to undergo port removal. She has been on Eliquis since the diagnosis. I discussed current guidelines in regards to management. There is no indication for hypercoagulable screening since it appears provoked. I recommended total of 3 months of anticoagulation with Eliquis. Patient will hold Eliquis for 48 hours prior to any procedure or surgeries. RECOMMENDATIONS: Patient is scheduled to have her port removed She will hold Eliquis for 48 hours prior to any procedure and resume the night of procedure. Duration of anticoagulation, 3 months Follow-up with hematology on as-needed basis Thank you very much for allowing to participate in this patient's care Malignant neoplasm of adrenal gland 12/07/2023 Neutropenic 12/28/2022 Assessment & Plan (12/30/2022 9:39 AM EST): The patient recently received cisplatin/etoposide cycle 1 for SCLC. She went on to develop cough and rigors for one week. She did not measure her temperature at home but felt subjective chills. Since coming to the ED she has not had a fever. Her ANC today was 330. Differential includes neutropenic fever versus alternative infection including pulmonary or urinary. She did have signs of mucus in urine but she may have just been dehydrated. Her chest xray was mostly clear. She will need follow up with urine cutlures and blood cultures. Also follow up with CT scan of chest. Influenza, RSV, and COVID all negative. Discontinue vanco as MRSA neg, Bcx NGTD, port looks ok Plan - Pending: UCx, BCx (2), MRSA swab. - Appreciate onc recs, will go to onc team from [facility]. - Continue with vanc/cefepime for broad spectrum coverage. - Trending daily CBC with diff and fever curve. - Continuing daily Granix. - Symptomatic adjuncts PRN for fevers. Hypothyroidism 12/28/2022 Assessment & Plan (12/29/2022 10:05 AM EST): Status post thyroidectomy for localized thyroid cancer. - Continuing home Synthroid. Small cell lung cancer, left upper lobe 09/16/20 Cancer Staging:Pathologic stage from 11/02/2022:Stage IB(pT2a, pN0, cM0) - Signed by Juan Du MD on 11/25/2022 Assessment & Plan (04/04/2025 3:20 PM EDT): Mrs. 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 She received adjuvant cisplatin/etoposide + neulasta support from 12/17-02/18/23 (cisplatin held with cycle 4 due to profound ototoxicity). PCI omitted given limited disease and LFS. This is a telemedicine encounter arranged for follow-up and to review imaging obtained to evaluate a new L paraspinal mass. Ms. Henley completed SCLC therapy >2 years ago. Unfortunately, she has been lost to follow-up in recent months for surveillance imaging. In recent weeks, she has palpated a lump/mass in her L lower back. I arranged scans (MRIs followed by PET) to spare radiation burden from CTs in the setting of Li-Fraumeni syndrome. Scans demonstrate a new L paraspinal mass that is hypermetabolic. The PET does not demonstrate other definitive sites of hypermetabolism in the chest or abdomen/pelvis. The brain MRI is reassuring against brain metastases. I have advised referral for biopsy of the L paraspinal mass to establish diagnosis, as she is at risk for several cancers, including an additional soft tissue sarcoma, and the location and solitary nature is somewhat atypical for SCLC. I will arrange in-person follow-up after the biopsy. She is comfortable with this plan. She knows to contact my team prior to next visit with any questions or concerns. PLAN: -I will refer her for biopsy of the L paraspinal tumor to establish diagnosis given Li-Fraumeni and risk of multiple cancers, including sarcomas. I have contacted IR to expedite the biopsy. -RTC on 04/26 to review results. I will also arrange labs on the day of the visit. -She is following up with Dr. Gilbert for Li-Fraumeni syndrome. I have alerted him and Dr. Cheng to the new mass. Assessment & Plan (10/04/2024 1:29 PM EST): Mrs. 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 She received adjuvant cisplatin/etoposide + neulasta support from 12/17-02/18/23 (cisplatin held with cycle 4 due to profound ototoxicity). PCI omitted given limited disease and LFS. This is a telemedicine encounter arranged for follow-up and to review surveillance imaging results. Ms. Henley is ~19 months out from completion of adjuvant chemotherapy. She is doing well. I have reviewed her imaging. There is stable lymphadenopathy without evidence of metastasis in the abdomen/pelvis or ROOFER GYPSUM. Labs are notable for chronic creatinine elevation. I have advised ongoing surveillance with repeat imaging in 3 months. Specifically, we will plan for chest MRI + brain MRI to decrease radiation exposure given LFS. Anticipate abdominal imaging [id number] or so. After 2 years post-chemo, we will extend the scan interval to [id number]. We will plan for CT chest annually. She is comfortable with this plan. She knows to contact my team prior to next visit with any questions or concerns. PLAN: -Chest MRI in mid-December ([address] chest). Anticipate CT scans annually (decreased frequency due to LFS) -Abdominal imaging due [id number] -Brain MRI in mid-December -She is following up with Dr. Gilbert for Li-Fraumeni syndrome Assessment & Plan (06/15/2024 2:11 PM EDT): Mrs. 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 She received adjuvant cisplatin/etoposide + neulasta support from 12/17-02/18/23 (cisplatin held with cycle 4 due to profound ototoxicity). PCI omitted given limited disease and LFS. This is a telemedicine encounter arranged for follow-up and to review surveillance imaging results. Ms. Henley is ~16 months out from completion of adjuvant chemotherapy. She is doing well. I have reviewed her imaging. The small lung nodules are stable, as is nonspecific lymphadenopathy. There is no evidence of metastasis in the abdomen/pelvis or ROOFER GYPSUM nor is there is evidence of intrathoracic recurrence. Labs are notable for chronic creatinine elevation. I have advised ongoing surveillance with repeat imaging (CT CAP, brain MRI) in 3 months. She is comfortable with this plan. She knows to contact my team prior to next visit with any questions or concerns. I have also recommended that she meet with the Early Detection team given Li-Fraumeni syndrome. I am particularly interested in screening procedures for other cancers and guidance regarding whether we should be more conservative with scan intervals given low radiation associated with these scans. Finally, I have asked her to stop the apixaban. PLAN: -I have asked her to stop the apixaban as she has completed 3 months post-port explantation. She is followed by Dr. Hawley in hematology. -CT CAP + brain MRI in 3 months with virtual visit after. -Referral to the Early Detection clinic given Li-Fraumeni. Assessment & Plan (03/15/2024 1:20 PM EDT): Mrs. 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 She received adjuvant cisplatin/etoposide + neulasta support from 12/17-02/18/23 (cisplatin held with cycle 4 due to profound ototoxicity). PCI omitted given limited disease and LFS. This is a telemedicine encounter arranged for follow-up after ED visit and to review CT chest findings. Ms. Henley is > 1 year out from completion of adjuvant chemotherapy. She is doing well. I have reviewed her imaging. The LLL nodule has decreased in size. The R lung nodule is stable. There is no evidence of metastasis in the abdomen/pelvis or ROOFER GYPSUM nor is there is evidence of intrathoracic recurrence. She continues on apixaban. Per hematology, she will continue for 3 months. I have asked her to begin timing from date of port removal. The port was explanted on 02/08/24. Labs are notable for improving creatinine elevation and chronic alkaline phosphatase elevation. I have advised ongoing surveillance with repeat imaging (CT CAP, brain MRI) in 3 months. She is comfortable with this plan. She knows to contact my team prior to next visit with any questions or concerns. PLAN: -She will continue apixaban for now. She will need anticoagulation for 3 months after the port explant (ie, 2 more months). She is followed by Dr. Hawley in hematology. -CT CAP + brain MRI in 3 months with virtual visit after. Assessment & Plan (01/19/2024 1:49 PM EDT): Mrs. 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 She received adjuvant cisplatin/etoposide + neulasta support from 12/17-02/18/23 (cisplatin held with cycle 4 due to profound ototoxicity). PCI omitted given limited disease and LFS. This is a telemedicine encounter arranged for follow-up after ED visit and to review CT chest findings. Ms. Henley is ~11 months out from completion of adjuvant chemotherapy. She has been having respiratory symptoms prompting ED evaluation. I have reviewed her CT chest. There is a small L lung nodule that has slightly increased. There is a ?small pulmonary embolus. Upon review with thoracic radiology, there appears to be a thrombus in the port-a-cath dating back to 10/2023 that is speculated to be the source of the pulmonary embolus. I have placed a referral to hematology to determine the timing of removing the port-a-cath. She will continue apixaban. With respect to other findings, we discussed monitoring the small L lung nodule for now, as it may be a separate primary early lung cancer (vs metastasis, with the former more likely given the appearance). She is scheduled for her routine scans in ~2.5 weeks. I have advised repeating imaging in early February to monitor the lung findings. We will delay the abdominal and brain imaging to this timeframe as well. She is comfortable with this plan. Of note, she was prescribed antibiotics but there is no definitive pneumonia on imaging. I have advised stopping the antibiotics. She is comfortable with this plan and knows to contact my team prior to next visit with any questions or concerns. PLAN: -She will continue apixaban for now. She will need anticoagulation for 3 months after the port explant. -IR referral for port-a-cath explant/removal given clot (This should be timed for ~3-6 weeks from now given recent clot). She is nearly 1 year out from last chemotherapy. -She will stop the antibiotics. -CT CAP + brain MRI in early February with virtual visit after. Assessment & Plan (11/17/2023 1:10 PM EST): Mrs. 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 She received adjuvant cisplatin/etoposide + neulasta support from 12/17-02/18/23 (cisplatin held with cycle 4 due to profound ototoxicity). PCI omitted given limited disease and LFS. This is a telemedicine encounter arranged to review surveillance imaging. Ms. Henley is ~8.5 months out from adjuvant chemotherapy. She is doing well. She denies persistent respiratory or constitutional symptoms. I have reviewed her imaging and discussed findings with her. There is no evidence of recurrence of her SCLC on CT CAP or brain MRI. The nonspecific lymphadenopathy is unchanged (dating back to 2018). Labs are notable for improving creatinine elevation and persistent alkaline phosphatase elevation. She did not have a CBC. I have recommended ongoing monitoring with CT CAP + brain MRI in 3 months with virtual visit after. She is comfortable with this plan and knows to contact my team prior to next visit with any questions or concerns. PLAN: -CT CAP + brain MRI + labs (CBC, CMP) in 3 months with virtual visit after. -Anticipate removal of port ~12 months after completing chemotherapy if scans remain reassuring (ie following next scans). Assessment & Plan (08/18/2023 1:08 PM EDT): Mrs. 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 She received adjuvant cisplatin/etoposide + neulasta support from 12/17-02/18/23 (cisplatin held with cycle 4 due to profound ototoxicity). PCI omitted given limited disease and LFS. This is a telemedicine encounter arranged to review post-treatment imaging. Ms. Henley is ~6 months out from adjuvant chemotherapy. She is doing well. She mainly reports R knee pain. We discussed that metastasis to the knee would be uncommon for SCLC. I have reviewed her imaging and discussed findings with her. There is no evidence of recurrence of her SCLC on CT CAP or brain MRI. Notably, the knee is not imaged on these scans. I have asked her to follow-up with her PCP for the knee symptoms. There are stable nonspecific mediastinal/axillary nodes. Of note, she underwent removal of the ruptured breast implant. I have reviewed her labs. Her creatinine remains elevated. I have encouraged her to increase fluid intake. I have recommended CT CAP + brain MRI in 3 months with virtual visit after. She is comfortable with this plan and knows to contact my team prior to next visit with any questions or concerns. PLAN: -CT CAP + brain MRI + labs in 3 months with virtual visit after. -I have encouraged increased fluid intake given persistent creatinine elevation. She is not on nephrotoxic medications. -She will follow-up with PCP regarding the R knee pain. Of note, she had a leiomyosarcoma of the R thigh. -Anticipate removal of port ~12 months after completing chemotherapy if scans remain reassuring. Assessment & Plan (05/19/2023 1:05 PM EDT): Mrs. 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 She received adjuvant cisplatin/etoposide + neulasta support from 12/17-02/18/23 (cisplatin held with cycle 4 due to profound ototoxicity). PCI omitted given limited disease and LFS. This is a telemedicine encounter arranged to review post-treatment imaging. Ms. Henley is ~3 months out from adjuvant chemotherapy. She continues to have hearing loss. She will be getting hearing aides soon. I have reviewed her imaging and discussed findings with her. There is no evidence of active or recurrent disease. The mediastinal nodes are stable (sampled and non-malignant). The area of abnormality in the cerebellum has resolved suggesting against malignant origin. I have reviewed her labs. Her creatinine is elevated. I have encouraged her to increase fluid intake. Review of her medications does not demonstrate nephrotoxic medications. I have recommended CT CAP + brain MRI in 3 months with virtual visit after. She is comfortable with this plan and knows to contact my team prior to next visit with any questions or concerns. PLAN: -CT CAP + brain MRI + labs in 3 months with virtual visit after. -I have encouraged increased fluid intake given creatinine elevation. She is not on nephrotoxic medications. -She continues to follow-up with otology and is undergoing planning for hearing aides. -Plastic surgery planned in Fall to remove ruptured implant. -Anticipate removal of port ~9-10 months after completing chemotherapy if scans are reassuring. Assessment & Plan (03/17/2023 1:55 PM EDT): Mrs. 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 She received adjuvant cisplatin/etoposide + neulasta support from 12/17-02/18/23 (cisplatin held with cycle 4 due to profound ototoxicity). This is a telemedicine encounter arranged to review post-treatment imaging. Ms. Henley is ~1 month out from chemotherapy. The hearing loss and ototoxicity is still present but improving. She has otology follow-up in 1 week. I have reviewed her imaging and discussed findings with her. There is no definitive evidence of active or recurrent disease. Specifically, there is unchanged mediastinal/hilar lymphadenopathy which is favored to represent reactive lymphadenopathy in the setting of ruptured breast implant. The brain MRI demonstrates an indeterminate focus in the cerebellum measuring 1 mm. As it would be unusual to develop brain metastases without lymph node involvement and particularly while on chemotherapy, we will monitor for now. Radiology suspects that finding may be a blood vessel. I have advised repeat imaging CT CAP + brain MRI in 2 months. I have also reached out to Dr. Forde re: PCI and we both favor omitting this given LFS and stage I SCLC. She knows to contact my team prior to next visit with any questions or concerns. PLAN: -CT CAP + brain MRI + labs in 2 months with virtual visit after. -She has an otology consult next week. -Anticipate removal of port ~9-10 months after completing chemotherapy if scans are reassuring. Assessment & Plan (02/18/2023 10:46 AM EDT): Mrs. 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 She initiated adjuvant cisplatin/etoposide on 12/17/22 with cycle 1 complicated by neutropenia and chills (subjective fever). She has received growth factor support with cycles 1 and 3. She presents to clinic for evaluation and consideration of cycle 4 of adjuvant cisplatin/etoposide. Ms. Henley has developed hearing loss and tinnitus. She notes that this began after cycle 2 and has progressed. I have advised holding kalispel therapy. We will proceed with etoposide. I have arranged an urgent evaluation with [facility]iology today. I have reviewed her labs and confirmed that they are available for dosing. We will plan for neulasta with day 3. Note, this is her final planned cycle of chemotherapy. I will arrange imaging (PET with diagnostic CT CAP) + brain MRI in the next 3-4 weeks with visit after. Anticipate scans (CT CAP + brain MRI) p2wceovt thereafter. She knows to contact my team prior to next visit with any questions or concerns. PLAN: -Proceed with cycle 4 of adjuvant chemotherapy. We will hold cisplatin given ototoxicity and proceed with etoposide alone. -I have arranged an audiology appointment for this afternoon at [facility]. -REGIMEN: Carboplatin AUC 5 day 1, etoposide 100 mg/m2 day 1-3. This is her final cycle. Switching to etoposide alone with cycle 4. -Neulasta on day 3 -She has compazine and zofran PRN nausea -PET + CT CAP + brain MRI in 3-4 weeks with visit after. -We will need to arrange port flush at [facility]. Anticipate removal ~9 months after completing chemotherapy if scans are reassuring. Assessment & Plan (01/28/2023 11:12 AM EDT): 52 y.o. 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 She initiated adjuvant cisplatin/etoposide on 12/17/22 with cycle 1 complicated by neutropenia and chills (subjective fever). Tolerated C2 well. -Continue adjuvant EP. We will maintain the dose given curative intent but add neulasta support for cycle 3. REGIMEN: Cisplatin 75 mg/m2, etoposide 100 mg/m2. Anticipate 4 cycles. -She will take decadron 4 mg and 2 mg on day 4 and 5, respectively. -RTC in 3 weeks -Anticipate imaging (CT CAP, brain MRI) after 4 cycles have been completed. 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 She initiated adjuvant cisplatin/etoposide on 12/17/22 with cycle 1 complicated by neutropenia and chills (subjective fever). She presents to clinic for evaluation while undergoing adjuvant cisplatin/etoposide. PLAN: -Continue adjuvant EP. We will maintain the dose given curative intent. Plan for neulasta support for cycle 3 pending count trajectory. REGIMEN: Cisplatin 75 mg/m2, etoposide 100 mg/m2. Anticipate 4 cycles. -She will take decadron 4 mg and 2 mg on day 4 and 5, respectively. -She has compazine and zofran PRN nausea -RTC in next week. She knows to contact our team prior to return with any questions or concerns. -Anticipate imaging (CT CAP, brain MRI) after 4 cycles have been completed. Assessment & Plan (01/07/2023 9:37 AM EST): Mrs. 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 She initiated adjuvant cisplatin/etoposide on 12/17/22 with cycle 1 complicated by neutropenia and chills (subjective fever). She presents to clinic for evaluation and consideration of cycle 2 of adjuvant cisplatin/etoposide. Ms. Henley developed chills, transient hallucination during week 2 of cycle 1. Labs were notable for neutropenia prompting brief hospital stay, antibiotics, and initiation of neupogen. In this setting, there has been overshoot of her WBC which is now elevated (though improved from 69k earlier in the week). We will proceed with cycle 2 of cisplatin/etoposide. We will omit neulasta, as it is likely her counts would have recovered in time for treatment without the growth factor support (precautionary in the setting of infection) and her current WBC remains elevated. I will arrange mid-cycle lab check at [facility] with virtual visit after. She will otherwise RTC in 3 weeks. She knows to contact our team with any questions or concerns. PLAN: -Proceed with cycle 2 of adjuvant EP. We will maintain the dose given curative intent. We will forgo neulasta support given markedly elevated WBC post- neupogen, but will consider for cycle 3 pending count trajectory. REGIMEN: Cisplatin 75 mg/m2, etoposide 100 mg/m2. Anticipate 4 cycles. -She will take decadron 4 mg and 2 mg on day 4 and 5, respectively. -She has compazine and zofran PRN nausea -Labs in ~10 days at [facility] with virtual visit after -RTC in 3 weeks. She knows to contact our team prior to return with any questions or concerns. -Anticipate imaging (CT CAP, brain MRI) after 4 cycles have been completed. Assessment & Plan (12/28/2022 3:50 PM EST): Mrs. 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 She received cycle 1 of adjuvant cisplatin/etoposide from 12/17 to 12/19 and is admitted for neutropenic fever and cough, presumably pneumonia. Of note, she recently had port placed for chemo. Plan: Admit for IV antibx and monitoring Blood cx x 2 sent from clinic Urine cx COVID swab sent-low suspicion Start Vanco/Cef; send MRSA swab and tailor antibx when appropriate Daily granix for ANC 330 IVF PRN Obtain chest CT for further eval Assessment & Plan (12/17/2022 10:20 AM EST): Mrs. 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 She presents to clinic for evaluation and consideration of cycle 1 of adjuvant cisplatin/etoposide. Ms. Henley is now ~6 weeks out from surgery. She reports slight discomfort at the surgical site. She continues on gabapentin. Port was placed yesterday. Labs today are acceptable for treatment. We again discussed the rationale and potential side effects of cisplatin/etoposide, including but not limited nausea, vomiting, diarrhea/constipation, hair loss, mouth sores, neuropathy, ototoxicity, nephrotoxicity, volume overload, and secondary hematologic malignancy (particularly given Li-Fraumeni syndrome). We will have a low threshold to switch to carboplatin if too much toxicity with cisplatin. She was provided with an opportunity to ask questions, after which she signed consent to treatment. We will proceed with cycle 1. She will RTC in 3 weeks for consideration of cycle 2. Of note based on the LS- SCLC and risk of secondary cancers from radiation, we are not planning adjuvant radiation. Finally, she had a CT chest for baseline which demonstrates post-lobectomy changes and unchanged lymphadenopathy (inflammatory/reactive). PLAN: -Proceed with cycle 1 of adjuvant EP. She signed consent today. REGIMEN: Cisplatin 75 mg/m2, etoposide 100 mg/m2. Anticipate 4 cycles. -I have instructed her to take decadron 4 mg and 2 mg on day 4 and 5, respectively, and confirmed that she has the medication. -She has compazine and zofran PRN nausea -RTC in 3 weeks. She knows to contact our team prior to return with any questions or concerns. -Anticipate imaging (CT CAP, brain MRI) after 4 cycles have been completed. Assessment & Plan (11/25/2022 3:00 PM EST): Mrs. 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 As staging studies demonstrated enlarged intrathoracic and chest wall/axillary nodes, she underwent L axillary node biopsy in 09/2022 which demonstrated reactive findings. Based on consensus from tumor board, she underwent left upper lobectomy on 11/02/22 with pathology review consistent with a pT2aN0 SCLC. The is is a telemedicine encounter arranged for follow-up and to discuss adjuvant treatment strategies. Ms. Henley is now ~3 weeks out from surgery. She reports improving surgical site discomfort which responds to tylenol. I have reviewed the pathology results. Overall, results are consistent with a pT2a SCLC. None of the evaluated nodes were involved, including mediastinal nodes. Rather, the enlargement was likely due to inflammation/giant cell reaction to the leaking breast implant. She has met with plastic surgery and elective removal/replacement has been advised. I discussed with her that even at early stages and after surgery, the risk of relapse of SCLC is not negligible. Thus, I have recommended 4 cycles of adjuvant chemotherapy (cis/etoposide). I reviewed logistics and potential side effects, including but not limited nausea, vomiting, diarrhea/constipation, hair loss, mouth sores, neuropathy, ototoxicity, nephrotoxicity, volume overload, and secondary hematologic malignancy (particularly given Li-Fraumeni syndrome). We will have a low threshold to switch to carboplatin if too much toxicity with cisplatin. I have asked her to return to clinic in 3 weeks to initiate treatment. As her last scans were from 08/2022, we will obtain CT chest prior to starting chemotherapy. I will place a re-referral to our social work team to arrange [facility] [place] stay. She is comfortable with this plan. Of note, based on LS-SCLC and risk of secondary cancers from radiation, we are not planning adjuvant radiation. Finally, she has had issues with venous access in the past with prior treatment. Thus, we will pursue port placement. PLAN: -RTC on 12/17/22 to initiate cisplatin/etoposide. She will sign consent with she returns. REGIMEN: Cisplatin 75 mg/m2, etoposide 100 mg/m2. Anticipate 4 cycles. -CT chest -Referral for port-a-cath placement Assessment & Plan (10/15/2022 12:31 PM EST): Mrs. 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 As staging studies demonstrated enlarged intrathoracic and chest wall/axillary nodes, she underwent L axillary node biopsy in 09/2022 which demonstrated reactive findings, raising the possibility that she has LS-SCLC. She presents to clinic for evaluation and consideration of cycle 1 of cis/etoposide and to review tumor board recommendations. Today, she denies respiratory symptoms and is doing well overall. We reviewed her case in tumor board this AM. It appears that much of the lymphadenopathy and a smaller mass may have been present dating back to 2018, at which time the implant rupture was also noted. Based on this finding, my impression is that she has LS- SCLC. As part of the discussion, we reviewed whether to proceed with systemic therapy followed by local therapy (either radiation after 2 cycles or surgery) vs starting with VATS + mediastinoscopy for sampling of nodes with proceeding to resection of the lung mass if frozen section/preliminary review is reassuring against teresa involvement with adjuvant chemotherapy after. The consensus favored starting with surgery given the additional information that it would yield and the potential to omit radiation given potential intermediate toxicity, namely secondary cancers. I discussed all of the above with Uday and her sister Rosa. They will meet with the thoracic surgery team on Tuesday to discuss next steps. Finally, Mrs. Henley has several additional medical conditions that require follow-up/coordination. Her TSH was elevated at a recent visit with her PCP. This is likely iatrogenic in setting of thyroidectomy. We have repeated here and I will refer to endocrinology pending results. She also has a nodule under the ribcage on the R that may correspond to an area of FDG avidity on recent PET. She has been referred to see dermatology next week to exclude soft tissue tumors. With respect to the ruptured implant, she has an appointment with plastic surgery in 10/2022. She is aware that replacement/removal may have to be delayed until after chemotherapy/treatment for SCLC at this point given chronicity. PLAN: -She will meet with the thoracic surgery team on Tuesday (Dr. Lucas) -Dermatology referral placed (see images in epic) for abdominal wall subcutaneous nodule in patient with history of LFS and soft tissue sarcoma -Referral to plastic surgery has been placed for ruptured breast implant. Will defer intervention until conclusion of therapy for SCLC. -Social work referral placed. She also gave us [facility] paperwork which we will coordinate. -Referral has been placed to [facility] genetics team to re-establish care with Dr. Tyler. Assessment & Plan (10/07/2022 3:52 PM EST): Mrs. 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 As staging studies for leiomyosarcoma demonstrated a L lung mass and multistation lymphadenopathy, she underwent biopsy of the lung mass which was consistent with SCLC. Staging studies have revealed enlarged hypermetabolic chest wall, L axillary, mediastinal nodes. This is a telemedicine encounter arranged for follow-up and to review L axillary node results. Ms. Henley is recovering well from COVID. I have reviewed the PET (and had contacted her with findings). She had a biopsy of a L axillary node earlier this week. I contacted pathology for an update on findings and there is no evidence of malignancy. Findings are suggestive of reaction to ruptured/damaged implant. She was not aware of a rupture. I have encouraged her to reach out to the breast oncology/surgery team at [facility] (both of her prior physicians have since moved on). Of note, the PET also demonstrated uptake in the R thigh (area of known excised leiomyosarcoma), as well as a separate cutaneous nodule in the abdominal wall. I inquired about whether she has noticed skin changes in this area, given high risk for soft tissue sarcomas in the setting of Li-Fraumeni syndrome and she has not. This may be inflammation related to the thigh procedure. I made her local team aware of the finding to facilitate direct visual inspection of the area. With respect to her lung cancer, based on imaging, I am favoring LS-SCLC. I explained that the mediastinal nodes may also be reactive or that they may contain SCLC. I have conferred with her prior genetics team and radiation should be used with caution given high risk of secondary cancers. However, radiation significant improves her chances of cure if this is limited-stage SCLC. We will present her case at our tumor board. For now, we will start with chemotherapy alone (cis/etoposide) for cycle 1. We will likely either add durvalumab with cycle 2 if radiation is decided against vs add radiation with cycle 2 (if concurrent is favored) vs plan for sequential smaller field radiation. She will receive treatment with Dr. Rider's team. I have also placed referral back to Dr. Tyler's team at [facility] for ongoing surveillance for additional malignancies in context of Li-Fraumeni syndrome. The radiation oncology team (Dr. Forde) is also arranging a consult. If it is preferred for her to receive radiation at [facility] given complexities of her case, she will transfer treatment here for cycles 2-3 of chemotherapy. PLAN: -Referral to radiation oncology (Dr. Forde)--visit scheduled for next week -Anticipate cis/etoposide for cycle 1. We will present her case at tumor board next week to discuss whether to add radiation with cycle 2. If radiation is not pursued, it is reasonable to add durvalumab. -She will contact the breast oncology team at [facility] about the ruptured implant. -Referral has been placed to [facility] genetics team to re-establish care with Dr. Tyler. Assessment & Plan (09/16/2022 1:17 PM EST): Mrs. 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 As staging studies for leiomyosarcoma demonstrated a L lung mass and multistation lymphadenopathy, she underwent biopsy of the lung mass which was consistent with SCLC. Shas been referred to [facility] to discuss next steps. Today, she reports mild fatigue and denies respiratory symptoms. I have reviewed her imaging. Scans are notable for a ~3 cm central NADIYA mass, as well as enlarged L axillary, subpectoral, supraclavicular, and internal mammary nodes. The brain MRI did not demonstrate intracranial metastases. I discussed my impression of findings with her and her sister, specifically that scans demonstrate a L lung mass and enlarged mediastinal, axillary, mammary nodes some or all of which may be related to the lung cancer. She is scheduled for a PET next week Tuesday for further characterization. We discussed that if there is no concerning finding below the diaphragm, the next steps would involve teresa sampling to exclude involvement of the cancer with the site of sampling dependent on PET (axillary vs mediastinal). I think it is important to confirm SCLC in the nodes given predisposition to malignancy and potential for alternative explanation than SCLC. As part of today's visit, I reviewed the treatment for presumed ES-SCLC, namely carbo/etoposide/atezolizumab with the potential for consolidation radiation upon completion of 4 cycles of chemotherapy provided that PET does not demonstrate extrathoracic disease. She is hoping to have treatment closer to home at [facility]. I will arrange the necessary consults. Ms. Henley is a never-smoker which is unusual for SCLC. SCLC is not typically considered as part of the Li-Fraumeni syndrome to my knowledge. Thus, I have advised somatic testing of the tumor to exclude EGFR mutations, etc, as it is our typical practice to omit immunotherapy if there is an EGFR mutation. However, in light of Li-Fraumeni, it will also be reasonable to look for other features that may correlate with benefit from including immunotherapy (potentially higher TMB). Finally, she has lost touch with the genetics team at [facility]. I will contact Dr. Tyler's team to re-connect with her. PLAN: -PET has been arranged for next week. I will message her with results. -I have placed a referral for axillary biopsy. We will cancel if the PET reveals other more optimal targets. -Anticipate carbo/etoposide/atezolizumab with plan to hold atezolizumab with cycle 1 while waiting for full NGS to better understand the TMB and potential benefit of immunotherapy. -I have placed a referral to the team at [facility]. -I have contacted Dr. Tyler's team to re-establish care. -Molecular testing requested --EGFR PCR, SNaPshot + fusion assay. -She did not meet with radiation oncology today due to our schedule. However, I highly recommend radiation oncology consult with our team after 4 cycles of chemotherapy to discuss consolidative radiation if PET is reassuring against extrathoracic disease. -Virtual visit on 09/30/22. Leiomyosarcoma of right thigh 08/12/2022 Li-Fraumeni syndrome 03/19/2013 Overview (12/21/2014): Li-Fraumeni syndrome Assessment & Plan (12/28/2022 10:33 PM EST): Nothing to do for now, continue to monitor Adrenal carcinoma 03/19/2013 Overview (12/21/2014): Adrenal carcinoma Malignant neoplasm of thyroid gland 03/19/2013 Overview (12/21/2014): Malignant tumor of thyroid gland Breast cancer 03/19/2013 Overview (12/21/2014): Malignant tumor of breast S/P splenectomy 08/02/2010 Overview (12/21/2014): S/P Splenectomy; per [facility] note dated 12/29/2009 Resolved Problems Problem Noted Date Diagnosed Date Resolved Date Small cell lung cancer 11/02/202203/17 Assessment & Plan (12/28/2022 10:33 PM EST): Nothing to do for now. Has port placed. Recently received adjuvant cycle 1 cisplatin and etoposide Encounters Date Type Department Care Team Description 09/22/2025 1:42 AM EST - 09/22/2025 3:19 AM EST Emergency [facility] [address] [place] [address] Dominic Britton, DO Discharge Disposition: Home or Self Care from Last 3 Months Immunizations Immunization Administration Dates Next Due Hib, unspecified formulation 10/27/2006 INFLUENZA, SPLIT VIRUS, TRIVALENT PF 08/28/2014 Influenza Quadrivalent Prese rvative Free IM 10/17/2022,10/06/2020,08/10/2018,08/17 Influenza Quadrivalent w/ Pr eservative IM 01/13/2008(Deferred: Other) Influenza, Unspecified Formulation 10/20/2012 Meningococcal ACWY, unspecif ied formulation 10/27/2006 Pneumococcal conjugate PCV20 10/20/2022 Pneumococcal polysaccharide PPSV23 10/06,01/13/2008(Deferred: Other),10/27/2006 Pneumococcal, Unspecified Formulation 10/27/2006 Tdap 06/26/2012 Family History Medical History Relation Comments Other Father renal failure Cancer Maternal Aunt breast cancer Cancer Maternal Grandfather Dementia Maternal Grandmother Thyroid disease Mother Cancer Paternal Grandmother lung cancer Lung cancer Paternal Grandmother Relation Status Comments Father Maternal Aunt Maternal Grandfather Maternal Grandmother Mother Alive Paternal Grandmother Sister 1 Alive Sister 2 Alive Social History Tobacco Use Types Packs/Day Years Used Date Smoking Tobacco: Never Smokeless Tobacco: Never Tobacco Cessation:Counseling Given: Not Answered Alcohol Use Standard Drinks/Week Comments Yes 2 [...] Orientation Straight 11/02/2022 12 :35 PM EST Last Filed Vital Signs Vital Sign Reading Time Taken Comments Blood Pressure 120/82 09/22/2025 3:12 AM EST Pulse 70 09/22/2025 3:12 AM EST Temperature 35.5 C (95.9 F) 09/22/2025 1:31 AM EST Respiratory Rate 16 09/22/2025 3:12 AM EST Oxygen Saturation 96% 09/22/2025 3:12 AM EST Inhaled Oxygen Concentration - - Weight 90.7 kg (200 lb) 06/03/2025 1:27 PM EDT Height 167.6 cm (5' 6 ) 06/03/2025 1:27 PM EDT Body Mass Index 32.28 06/03/2025 1:27 PM EDT Plan of Treatment Upcoming Encounters Date Type Department Care Team (Late st Contact Info) Description 10/18/2025 3:20 PM EST Office Visit [facility] [address] [facility], 9th Floor, [address] [place] [address] Greyson Gilbert MD, PhD [address] [place] [address] Scheduled Procedures Name Priority Associated Diagnoses Date/Ti me 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 Health Maintenance Due Date Last Done Comments MENINGOCOCCAL VACCINES (B) (1 of 4 - Increased Risk) 1981 DEPRESSION SCREENING 1983 HIV ONE-TIME SCREENING (18-65 YEARS) 1989 ZOSTER VACCINES (1 of 2) 1990 MENINGOCOCCAL VACCINES (ACWY) (2 - Risk 2-dose series) 12/22/2006 10/27/2006 COLOGUARD 2016 FIT TEST 2016 FOBT 2016 SIGMOIDOSCOPY 2016 VIRTUAL COLONOSCOPY 2016 RSV VACCINE (1 - Risk 50-74 years 1-dose series) 2021 TSH LEVEL 10/15/2023 10/15/2022, 05/1 , 12/29/2009 INFLUENZA VACCINE (#1) 2025 , 10/06/2020, 08/10/2018, Additional history exists COVID-19 VACCINE ( season) 2025 02/06/2021, 01/16/2021 LIPID PANEL 10/23/2025 10/23/2020 PAP SMEAR 03/14/2027 03/14/2024, 04/0 03/2018, 01/28/2017 COLONOSCOPY 11/28/2027 11/28/2017, 08/05/2010 COLORECTAL CANCER SCREENING 11/28/2027 SCREENING FOR DIABETES 05/09/2028 05/09/2025 Adult Td,Tdap Booster 03/14/2034 03/14/2024, 012 HIB VACCINES Completed 10/27/2006 HEPATITIS C SCREENING Completed 10/23/2020 PNEUMOCOCCAL VACCINES (50+ years) Completed 10/20/2022, 10/06/2020, 10/27/2006 SMOKING STATUS SCREENING (Once After 26 Yrs) Completed 05/01/2025 HEPATITIS A VACCINES Aged Out No long er eligible based on patient's age to complete this topic Medical Devices Implanted Type Area Switch Adjuster Device Identifier Shelf Expiration Date Model / Serial / Lot Implant Breast 600cc Silicone Smooth Round Cohesive Silicone Shell Od15cm P4.6cm - [id number] Implanted:Qty: 1 on 06/22/2023 by Mimi Perkins MD, MS at [facility] Left: Breast [employer] 04/30/2026 [id number] C / [id number] / [id number] Implant Breast 600cc Silicone Smooth Round Cohesive Silicone Shell Od15cm P4.6cm - [id number] Implanted:Qty: 1 on 06/22/2023 by Mimi Perkins MD, MS at [facility] Right: Breast [employer] 01/19/2025 [id number] C / [id number] 70 / [id number] [place] 6.6fr Infusion Mini Attachable Silicone Filled Suture Hole Chronoflex Catheter - [id number] Implanted:Qty: 1 on 12/16/2022 by Sylvia Interiano PA-C at [facility] Right: Chest Wall [employer] 09/29/2026 [id number] / / [id number] Implanted - Out of Service Type Area Switch Adjuster Device Identifier Shelf Expi ration Date Model / Serial / Lot Iud Explanted Type Area Switch Adjuster Device Identifier Shelf Expiration Date Model / Serial / Lot Breast Explanted:Qty: 1 on 06/22/2023 by Mimi Perkins MD, MS at [facility] Description:Left Breast Impl ant unable to read numbers Right Breast Explanted:Qty: 1 on 06/22/2023 at [facility] Right: Breast / / [id number] Description:Implant [place] 6 10 Procedures Procedure Name Priority Date/Time Associated Diagnosis Comments ECG 12-LEAD STAT 09/22/2025 2:30 AM EST POCT GLUCOSE STAT 09/21/2025 11:43 PM EST PAP TEST Routine 03/14/2024 12:00 AM EDT TSH WITH REFLEX Routine 10/15/2022 10:56 AM EST Small cell lung cancer, left upper lobe ENDOSCOPY, COLON 11/28/2017 8:01 AM EST from Last 3 Months or Most Recently Relevant to Health Maintenance Results * ECG 12-LEAD (09/22/2025 2:30 AM EST) Ventricular Rate EKG/MIN 80 BPM [facility] Atrial Rate 80 BPM [facility] CA Interval 198 ms [facility] QRS Duration 86 ms [facility] QT Interval 430 ms [facility] QTC Interval 495 ms [facility] P [place] 53 degrees [facility] R Wave [place] 0 degrees [facility] T Wave [place] -1 degrees [facility] 09/22/2025 2:30 AM EST 09/22/2025 10:07 AM EST Narrative [facility] - 09/22/2025 10:07 AM EST Normal sinus rhythm Possible Inferior infarct , age undetermined Possible Anterior infarct , age undetermined Abnormal ECG When compared with ECG of 17-Jan-2024 18:35, QT has lengthened Confirmed by Donald Cano ([id number]) on 09/22/2025 10:07:14 AM us Dominic Britton DO ECG ORDERABLES Final Result [facility] * (ABNORMAL) POCT Glucose (09/21/2025 11:43 PM EST) Glucose 126(H) 70 - 99 mg/dL 09/21/2025 11:49 PM EST [facility] Blood (Blood) 09/21/2025 11: 43 PM EST 09/21/2025 11:49 PM EST us Unknown Unknown MD LAB POCT DOCKED DEVICE UNSOLI CTED RESULTS Final Result [address] [address] * Pap Test (03/14/2024 12:00 AM EDT) Report [address] [address] Radio Repairer Domestic: Ngozi Mejia MD TEST ANALYST Cytology Report FINAL DIAGNOSIS A. PAP SMEAR (THIN PREP) CE: SPECIMEN ADEQUACY: Satisfactory for evaluation; transformation zone absent/insufficient . INTERPRETATION: NEGATIVE FOR INTRAEPITHELIAL LESION OR MALIGNANCY. Coccobacilli consistent with shift in traci This specimen was analyzed by the automated ThinPrep Imaging System (NanoTune.) and manually rescreened by a it security consulting director and/or pathologist. Electronically Signed Out By: STUART Alonso(ASCP) STUART Lang(ASCP) The Pap test is a screening test primarily for squamous cancers and precursors and has associated false-negative and false-positive results. New technologies such as liquid-based preparations may decrease but will not eliminate all false-negative results. Regular sampling and follow-up of unexplained clinical signs and symptoms are recommended to minimize false negative results. PROCEDURES/ADDENDA HPV Testing (Requested) Ordered Date: 03/15/2024 A. PAP SMEAR (THIN PREP) CE: Human Papilloma Virus Test NEGATIVE for high-risk Human Papilloma Virus types 16, 18, 45 and the Other high risk probe set (Includes 31, 33, 35, 39, 51, 52, 56, 58, 59, 66, 68) Note: Testing performed by [employer] Onclarity HR-HPV analysis. Clinical correlation is advised. This HPV test was performed at [facility], [address] [place] [address]. This test has been FDA approved for both SurePath and ThinPrep cervical cytology specimens. The accuracy and precision of this test for all other specimen sources has been verified in the Cytopathology Laboratory of the [facility] and has not been cleared or approved by the U.S. Food and Drug Administration. Clinical correlation is advised. CLINICAL HISTORY Date of Last Menstrual Period: Not Provided Menstrual History: Post Menopausal Other Clinical Conditions: Screening Pap SPECIMEN SOURCE A: PAP SMEAR (THIN PREP) CE Patient Name: UDAY HENLEY : 1970 (Age: 53) Sex: F Institution: [facility] Location: [facility] Date of Collection: 03/14/2024 Date of Reported: 03/22/2024 10:45 Results to: Isis Borges NP [facility] Final Diagnosis A. PAP SMEAR (THIN PREP) CE: SPECIMEN ADEQUACY: Satisfactory for evaluation; transformation zone absent/insufficient . INTERPRETATION: NEGATIVE FOR INTRAEPITHELIAL LESION OR MALIGNANCY. Coccobacilli consistent with shift in traic This specimen was analyzed by the automated ThinPrep Imaging System (NanoTune.) and manually rescreened by a it security consulting director and/or pathologist. [facility] Results\Inte rpretation A. PAP SMEAR (THIN PREP) CE: Human Papilloma Virus TestNEGATIVE for high-risk Human Papilloma Virus types 16, 18, 45 and the Other high risk probe set (Includes 31, 33, 35, 39, 51, 52, 56, 58, 59, 66, 68)Note: Testing performed by [employer] On[employer] HR-HPV analysis. Clinical correlation is advised. This HPV test was performed at [facility], [address] [place] [address]. This test has been FDA approved for both SurePath and ThinPrep cervical cytology specimens. The accuracy and precision of this test for all other specimen sources has been verified in the Cytopathology Laboratory of the [facility] and has not been cleared or approved by the U.S. Food and Drug Administration. Clinical correlation is advised. [facility] Conversion Type (Conversion Source) 03/14/2024 03/15/2024 9:25 AM EDT us Isis Borges NP CYTOLOGY ORDERABLES Iván rosi Result - Final [facility] [address] [place] [address] * (ABNORMAL) TSH with reflex (10/15/2022 10:56 AM EST) SCREENING PANEL: TSH 34.60(H) 0.40 - 5.00 uIU/mL [facility] 10/15/2022 10:5 6 AM EST 10/15/2022 11:03 AM EST us Juan Du MD LAB BLOOD BKR ORDERABLES F inal Result [address] [address] * ENDOSCOPY, COLON (11/28/2017 8:01 AM EST) Narrative Transcriptions Marleen Nielson MD - 11/28/2017 8:01 AM EST Patient Name: Uday Henley Attending MD:: MARLEEN NIELSON MD Procedure Date: 11/28/2017 8:01 AM Date of : 1970 Age: 46 Admit Type: Outpatient Gender: Female Room: [facility] Referring MD: ROCIO BALTAZAR MD Exam Type: Colonoscopy Indications: Li-Fraumeni Syndrome Medications: Monitored Anesthesia Care Procedure: Informed consent was obtained from the patient after discussion of the indications, limitations,alternatives, benefits, and risks of the procedure. Risksspecifically discussed include but are not limited to medication reactions, missed lesions, bleeding, perforation, orthe need for emergent surgery. Throughout the procedure, the patient's blood pressure, pulse, end-tidal CO2, and oxygen saturations were monitored continuously. The Olympus adult colonoscope CFQ 180AL #5 wasintroduced through the anus and advanced to the terminal ileum,with identification of the appendiceal orifice and IC valve. The colonoscopy was performed without difficulty. The patient tolerated the procedure well. The quality ofthe bowel preparation was good. Complications: No immediate complications. Findings: The perianal and digital rectal examinations werenormal. Pertinent negatives include normal sphincter tone. The terminal ileum appeared normal. A few small-mouthed diverticula were found in thesigmoid colon. Anal papilla(e) were hypertrophied. The exam was otherwise without abnormality on directand retroflexion views. Impression: - The examined portion of the ileum was normal. - Diverticulosis in the sigmoid colon. - Anal papilla(e) were hypertrophied. - The examination was otherwise normal on direct and retroflexion views. - No specimens collected. Recommendation: - Repeat colonoscopy in 3 years for screeningpurposes. MARLEEN NIELSON MD 11/28/2017 8:25:37 AM This report has been signed electronically. Number of Addenda: 0 Note Initiated On: 11/28/2017 8:01 AM Procedure Code(s): --- Professional --- 03832, Colonoscopy, flexible; diagnostic, including collection of specimen(s) by brushing or washing, when performed (separateprocedure) --- Technical --- 55126, Colonoscopy, flexible; diagnostic, including collection of specimen(s) by brushing or washing, when performed (separateprocedure) Diagnosis Code(s): --- Professional --- K62.89, Other specified diseases of anus and rectum K57.30, Diverticulosis of large intestine without perforation orabscess without bleeding --- Technical --- K62.89, Other specified diseases of anus and rectum K57.30, Diverticulosis of large intestine without perforation orabscess without bleeding CPT copyright 2016 [employer]. All rights reserved. The codes documented in this report are preliminary and upon asic engineer reviewmay be revised to meet current compliance requirements. [address] [place] [address] us Rocio Baltazar MD GI PROCEDURE ORDERABLES Fin al Result from Last 3 Months or Most Recently Relevant to Health Maintenance Additional Health Concerns Infection Onset Date Last Indicated MRSA 08/03/2024 06/03/2025 Insurance [place] [facility] MEDIC[facility] PART A & B [place] B Advance Directives For more information, please contact: [phone] (9AM - 5PM Mary Jane/[facility], Tuesday-Tuesday) Documents on File Type Date Recorded 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 11/04/2022 8:16 AM Serious Illness Care 01/10/2019 OUTSIDE O/V * Full Code (Latest Code Status on File) Date Activated Date Inactivated Comments 05/09/2025 10:33 AM Question Answer Comments Code Status Confirmed With: Patient * Full Code Date Activated Date Inactivated Comments 12/28/2022 10:36 PM 05/09/2025 10:33 AM Question Answer Comments Code Status Confirmed With: Patient Code Status Communicated To: Inpatient Attending * Full Code Date Activated Date Inactivated Comments 11/02/2022 7:35 PM 12/28/2022 10:36 PM Question Answer Comments Code Status Confirmed With: Patient Code Status Communicated To: Inpatient Attending * Full Code Date Activated Date Inactivated Comments 11/02/2022 12:15 PM 11/02/2022 7:35 PM Question Answer Comments Code Status Confirmed With: Patient * Full Code Date Activated Date Inactivated Comments 08/20/2022 7:51 AM 11/02/2022 12:15 PM Question Answer Comments Code Status Confirmed With: Patient Care Teams Head Loft Worker Relationship Specialty Start Date End Date Isis Borges NP [address] [place] [address] PCP - General Nurse Practitioner 06/11/24 Rocio Baltazar MD [email or web address] Family Medicine 07/14/21 Alex Rider DO [address] [place] [address] [email or web address] Primary Oncologist Hematology and Oncology 09/17/22 Juan Du MD [address] [place] [phone] [email or web address] Primary Oncologist Medical Oncology 10/08/22 Khadar Forde MD [address] [place] [address] [address] [place] [address] [email or web address] [email or web address] Oncology 10/10/22 Yasmeen Dixon, RN [address] [place] [email or web address] Primary Infusion Nurse 12/09/22 Yusef Beck MBBS [address] [place] [id number] [email or web address] Medical Oncology 01/31/24 Romain Cheng MD, PhD [address] [place] [phone] [email or web address] Medical [email or web address] 05/12/25 Elizabet Quigley MD, PhD [address] [place] [address] [phone] [email or web address] Surgical Oncology 04/24/25 Additional Source Comments The information contained in this document represents components of the legal health record. It is not the complete legal health record.[facility]
--- OUTSIDE RECORDS SUMMARY | 2025-09-25 17:02 | XMS_ITS ---
Author Organization [facility] Address [address] [facility] [address] [place] [address] Phone Care Team Providers Care Documentation Analyst Name Role Phone Jin Rajan MD Unavailable [phone] Alex Rider DO Unavailable Juan Du MD Unavailable Khadar Forde MD Unavailable [phone] Yasmeen Dixon RN Unavailable [email or web address] Yusef Beck MBBS Unavailable [phone] Isis Borges NP Primary Care Provider Romain Cheng MD, PhD Unavailable Elizabet Quigley MD, PhD Unavailable Active Problems Patient Care Coordination No te Formatting of this note migh t be different from the original. 01/19/2024. Pt unable to fill Dilaudid 2 mg ,medication on back order. PCP prescribed hydrocodone 5/325 acetaminophen. Pt picked up 01/18/2024. 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 R196*) [...] evidence of metastasis in the abdomen/pelvis or FLY TIER. Labs are notable for chronic creatinine elevation. I have advised ongoing surveillance with repeat imaging in 3 months. Specifically, we will plan for chest MRI + brain MRI to decrease radiation exposure given LFS. Anticipate abdominal imaging [id number] or so. After 2 years post-chemo, we will extend the scan interval to [id number]. We will plan for CT chest annually. She is comfortable with this plan. She knows to contact my team prior to next visit with any questions or concerns. PLAN: -Chest MRI in mid-December ([address] chest). Anticipate CT scans annually (decreased frequency due to LFS) -Abdominal imaging due [id number] -Brain MRI in mid-December -She is following [...] evidence of metastasis in the abdomen/pelvis or FLY TIER nor is there is evidence of intrathoracic [...] -Referral to the Early Detection clinic given Ashli-Kyler. Assessment & Plan (03/15/2024 1:20 PM EDT): [...] evidence of metastasis in the abdomen/pelvis or FLY TIER nor is there is evidence of intrathoracic [...] and has progressed. I have advised holding sk[place]om[place] therapy. We will proceed with etoposide. I have arranged an urgent evaluation with [facility] audiology today. I have reviewed her labs and confirmed that they are available for dosing. We will plan for neulasta with day 3. Note, this is her final planned cycle of chemotherapy. I will arrange imaging (PET with diagnostic CT CAP) + brain MRI in the next 3-4 weeks with visit after. Anticipate scans (CT CAP + brain MRI) [id number] thereafter. She knows to contact my team prior to next visit with any questions or concerns. PLAN: -Proceed with cycle 4 of adjuvant chemotherapy. We will hold cisplatin given ototoxicity and proceed with etoposide alone. -I have arranged an audiology appointment for this afternoon at [facility]. -REGIMEN: Carboplatin AUC 5 day 1, etoposide 100 mg/m2 day 1-3. This is her final cycle. Switching to etoposide alone with cycle 4. -Neulasta on day 3 -She has compazine and zofran PRN nausea -PET + CT CAP + brain MRI in 3-4 weeks with visit after. -We will need to arrange port flush at [facility]. Anticipate removal ~9 months after completing chemotherapy [...] I will arrange mid-cycle lab check at [facility] with virtual visit after. She will otherwise [...] PRN nausea -Labs in ~10 days at [facility] with virtual visit after -RTC in 3 [...] our social work team to arrange [facility] stay. She is comfortable with this plan. [...] may have been present dating back to 2017, at which time the implant rupture was [...] the potential to omit radiation given potential group home toxicity, namely secondary cancers. I discussed all of the above with Elsa and her sister Rosa. They will meet [...] work referral placed. She also gave us [facility] paperwork which we will coordinate. -Referral has been placed to [facility] genetics team to re-establish care with Dr. [...] out to the breast oncology/surgery team at [facility] (both of her prior physicians have since [...] referral back to Dr. Tyler's team at [facility] for ongoing surveillance for additional malignancies in context of Li-Fraumeni syndrome. The radiation oncology team (Dr. Forde) is also arranging a consult. If it is preferred for her to receive radiation at [facility] given complexities of her case, she will [...] will contact the breast oncology team at [facility] about the ruptured implant. -Referral has been placed to [facility] genetics team to re-establish care with Dr. [...] consistent with SCLC. Shas been referred to [facility] to discuss next steps. Today, she reports [...] to have treatment closer to home at [facility]. I will arrange the necessary consults. Ms. [...] lost touch with the genetics team at [facility]. I will contact Dr. Tyler's team to [...] placed a referral to the team at [facility]. -I have contacted Dr. Tyler's team to [...] S/P Splenectomy; per [facility] note dated 12/29/2009 Current Treatment and Therapy Plans No current plan information found. Past Treatment and Therapy Plans TREATMENT PLAN Plan Name Start Date Discontinue Date Treatment Medications Discontinue Reason Plan Provider Cycles ETOPOSIDE/CI SPLATIN WITH CISPLATIN DAY 1-THORACIC 3 03/27/2024 CISplatin (PLATINOL) IVPB 270 mLetoposide (VEPESID, TOPOSAR) infusion (500 mL) a. Therapy Complete Juan Du MD 4 of 4 cycles started ETOPOSIDE/CI SPLATIN WITH CISPLATIN DAYS 1,2,3 10/15/20 22 10/14/2022 CISplatin (PLATINOL)etop oside (VEPESID, TOPOSAR) m. Entered in error Alex Rider, DO Treatment not started TREATMENT PLAN-SUPPLEMENTAL Plan Name Start Date Discontinue Date Treatment Medications Discontinue Reason Plan Provider Cycles EC - ETOPOSID E/CARBOP LATIN 02/18/2023 03/27/2024 CARBOplatin (PARAPLATIN)eto poside (VEPESID, TOPOSAR) a. Therapy Complete Juan Du MD Treatment not started Resolved Problems Problem Noted Date Diagnosed Date Resolved Date Small cell lung cancer 11/02/202203/17 Assessment & Plan (12/28/2022 10:33 PM EST): Nothing to do for now. Has port placed. Recently received adjuvant cycle 1 cisplatin and etoposide
--- OUTSIDE RECORDS SUMMARY | 2025-09-25 17:02 | XMS_ITS | Encounter Summary ---
Author Organization [facility] Address [address] [employer] [address] [address] Phone Care Team Providers Care Transformation Manager Name Role Phone Jin Rajan MD Unavailable [phone] Becca Stubbs NP Unavailable [phone] Nora Hood MD Unavailable [phone] Becca Stubbs NP Primary Care Provider [phone] Alex Rider DO Unavailable [phone] Juan Du MD Unavailable [phone] Yasmeen Dixon RN Unavailable Al [email or web address]@[email or web address] [facility] Khadar Forde MD Unavailable [phone] Jody Fleming RN Unavailable [email or web address] Yasmeen Dixon RN Unavailable Al [email or web address]@[email or web address].[place] [facility] Jonas Coleman MD Primary Care Prov ider Alicia Franco NURSERY TEACHER Unavailable [phone] Roxana Fuchs RN Unavailable [phone] Mirlande Mai Unavailable [email or web address] Dawna Baugh [facility] Unavailable [phone] Jin Rajan MD Primary Care Provider [phone] Yusef Beck MBBS Unavailable Alicia Franco NURSERY TEACHER Unavailable [phone] Isis Borges PRODUCTION MACHINE COMPUTER OPERATOR Primary Care Provider Romain Cheng MD, PhD Unavailable Elizabet Quigley MD, PhD Unavailable Encounter Details Date Type Department Care Team (Late Contact Info) Description 08/20/2022 Procedure Pass [facility] Imaging - RF/IR [address] [place] [address] Social History Tobacco Use Types Packs/Day Years [...] Office Visit [facility] [address] [facility], 9th Floor, [address] [place] [address] Greyson Gilbert MD, PhD [address] [address] [email or web address] Scheduled Procedures [...] documented as of this encounter Care Teams Transformation Manager Relationship Specialty Start Date End Date Becca Stubbs NP [address] [place] [address] PCP - General Nurse Practitioner 05/08/22 04/27/23 Jonas Coleman MD [address] [place] [address] [email or web address] PCP - General Family Medicine 04/28/23 12/30/23 Jin Rajan MD [address] [place] [phone] [email or web address] PCP - General Family Medicine 12/31/23 06/10/24 Isis Borges NP [address] [place] [address] PCP - General Nurse Practitioner 06/11/24 Jin Rajan MD [email or web address] 07/14/21 Becca Stubbs NP [address] [place] [address] Primary Care Physician 01/27/1610/12 Nora Hood MD [address] [place] [address] [email or web address] Primary Oncologist Medical Oncology 12/19/20 09/16/22 Alex Rider DO 30 [place] [address] [email or web address] Primary Oncologist Hematology and Oncology 09/17/22 Juan Du MD [address] [place] [address] [address] [place] [phone] [email or web address] Primary Oncologist Medical Oncology 10/08/22 Yasmeen Dixon, ADELA [address] [place] [address] [email or web address] Primary Infusion Nurse 10/08/22 11/23/22 Khadar Forde MD [address] [place] [address] [email or web address] Radiation Oncology 10/10/22 Jody Fleming RN [address] [place] [address] [email or web address] Primary Infusion Nurse 11/24/22 12/08/22 Yasmeen Dixon RN [address] [place] [address] [email or web address]@[email or web address] Primary Infusion Nurse 12/09/22 Alicia Franco, NURSERY TEACHER [address] [place] [address] [email or web address] i[employer] Plus Lumber Cutter Nurse Practitioner 09/26/2310/01 Roxana Fuchs RN [facility] [place] [address] [email or web address] [employer] Plus Lumber Cutter 09/26/23 10/26/23 Mirlande Mai [address] [place] [address] [email or web address] G iCMP Plus Community Health Worker 09/26/23 10/26/23 Dawna Baugh, [facility] [address] [place] [address] [email or web address] iC[employer] Plus Hearing Consultant 09/26/23 10/26/23 Yusef Beck MBBS [address] [place] [phone] [email or web address] Medical Oncology 01/31/24 Alicia Franco CNP [address] [place] [address] [email or web address] iC[employer] Plus Lumber Cutter Nurse Practitioner 05/14/2406/24 Romain Cheng MD, PhD [address] [place] [address] [email or web address] Medical Oncology 05/12/25 Elizabet Quigley MD, PhD [address] [place] [phone] [email or web address] Surgical Oncology 04/24/25 documented as of this encounter Additional Source Comments The information contained in this document represents components of the legal health record. It is not the complete legal health record.[facility]
--- OUTSIDE RECORDS SUMMARY | 2025-09-25 17:02 | XMS_ITS | Encounter Summary ---
Author Organization [facility] Address [address] [employer] [address] [address] Phone Care Team Providers Care Biomedical Engineer Name Role Phone Jin Rajan MD Unavailable [phone] Alex Rider DO Unavailable [phone] Juan Du MD Unavailable [phone] Khadar Forde MD Unavailable [phone] Yasmeen Dixon RN Unavailable Al [email or web address] .[facility] Jonas Coleman MD Primary Care Prov ider Alicia Franco CHLORINATOR OPERATOR Unavailable [phone] Roxana Fuchs RN Unavailable [phone] Mirlande Mai Unavailable [email or web address] Dawna Baugh [facility] Unavailable [phone] Jin Rajan MD Primary Care Provider [phone] Yusef Beck MBBS Unavailable [phone] Alicia Franco CHLORINATOR OPERATOR Unavailable [phone] Isis Borges NP Primary Care Provider Romain Cheng MD, PhD Unavailable [phone] Elizabet Quigley MD, PhD Unavailable [phone] Encounter Details Date Type Department Care Team (Late Contact Info) Description 08/18/2023 Procedure Pass [facility], [address] [address] Social History Tobacco Use Types Packs/Day Years [...] Office Visit [facility] [address] [place] [address], 9th Floor, [address] [place] [address] Greyson Gilbert MD, PhD [address] [facility] [address] [place] [address] [email or web address] Scheduled Procedures Name Priority Associated Diagnoses Date/Ti me 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 documented as of this encounter Visit Diagnoses Not on filedocumented in this encounter Additional Health Concerns Infection Onset Date Last Indicated Resolved Time CoV-Risk 12/07/2023 12/07/2023 12/18/2023 1:22 AM EST CoV-Risk 12/31/2023 12/31/2023 01/11/2024 1:22 AM EDT MRSA 08/03/2024 06/03/2025 documented as of this encounter Care Teams Biomedical Engineer Relationship Specialty Start Date End Date Jonas Coleman MD [address] [place] [address] [email or web address] .[facility] PCP - General Family Medicine 04/28/23 12/30/23 Jin Rajan MD [address] [place] [phone] [email or web address] PCP - General Family Medicine 12/31/23 06/10/24 Isis Borges NP [address] [place] [address] PCP - General Nurse Practitioner 06/11/24 Jin Rajan MD [email or web address] Family Medicine 07/14/21 Alex Rider DO [address] [place] [address] [email or web address] Primary Oncologist Hematology and Oncology 09/17/22 Juan Du MD [address] [place] [address] [address] [place] [phone] [email or web address] Primary Oncologist Medical Oncology 10/08/22 Khadar Forde MD [address] [place] [address] [address] [place] [address] [email or web address] Radiation Oncology 10/10/22 Yasmeen Dixon, ADELA [address] [place] [email or web address] [email or web address] Primary Infusion Nurse 12/09/22 Alicia Franco, CHLORINATOR OPERATOR [address] [place] [address] [email or web address] iCMP Plus Motor Teacher Nurse Practitioner 09/26/2310/01 Roxana Fuchs, ADELA [facility] [employer] [place] [address] [email or web address] iC[employer] Plus Motor Teacher 09/26/23 10/26/23 Mirlande Mai [facility] [employer] [place] [address] [email or web address] iCMP Plus Community Health Worker 09/26/23 10/26/23 Dawna Baugh [facility] [address] [place] [address] [email or web address] iCMP Plus High Lift Driver 09/26/23 10/26/23 Yusef Beck MBBS [address] [place] [phone] [email or web address] Medical Oncology 01/31/24 Alicia Franco, CHLORINATOR OPERATOR [address] [place] [address] [email or web address] iC[employer] Plus Motor Teacher Nurse Practitioner 05/14/2406/24 Romain Cheng MD, PhD [address] [place] [address] YA-[address] [place] [address] [email or web address]@[email or web address] Medical Oncology 05/12/25 Elizabet Quigley MD, PhD [address] [place] [phone] [email or web address] Surgical Oncology 04/24/25 documented as of this encounter Additional Source Comments The information contained in this document represents components of the legal health record. It is not the complete legal health record.[facility]
--- OUTSIDE RECORDS SUMMARY | 2025-09-25 17:02 | XMS_ITS | Encounter Summary ---
Author Organization [facility] Address [address] [employer] [address] [address] Phone Care Team Providers Care Storage Consultant Name Role Phone Jin Rajan MD Unavailable + Becca Stubbs PATIENT ACCOUNTS SPECIALIST Primary Care Provider + Alex Rider DO Unavailable [phone] Juan Du MD Unavailable [phone] Khadar Forde MD Unavailable [phone] Jody Fleming RN Unavailable [email or web address] Yasmeen Dixon RN Unavailable Al Sharona@[email or web address] .[facility] Jonas Coleman MD Primary Care Prov ider + Alicia Franco DONOR RELATIONS OFFICER Unavailable +[phone] Roxana Fuchs RN Unavailable [phone] Mirlande Mai Unavailable [email or web address] Dawna Baugh [facility]HC Unavailable [phone] Jin Rajan MD Primary Care Provider [phone] Yusef Beck MBBS Unavailable [phone] Alicia Franco DONOR RELATIONS OFFICER Unavailable +[phone] Isis Borges PATIENT ACCOUNTS SPECIALIST Primary Care Provider Romain Cheng MD, PhD Unavailable Elizabet Quigley MD, PhD Unavailable [phone] Encounter Details Date Type Department Care Team (Late Contact Info) Description 11/25/2022 Procedure Pass [facility], Ct Scan - [address] [address] Social History Tobacco Use Types Packs/Day Years [...] Office Visit [facility] [address] [place] [address], 9th Floor, [address] [place] [address] Greyson Gilbert MD, PhD 55 [facility] [address] [place] [address] [email or web address] Scheduled Procedures Name Priority Associated Diagnoses Date/Ti [...] documented as of this encounter Care Teams Storage Consultant Relationship Specialty Start Date End Date Becca Stubbs NP [address] [place] [address] PCP - General Nurse Practitioner 05/08/22 04/27/23 Jonas Coleman MD [address] [place] [address] [email or web address] .[facility] PCP - General Family Medicine 04/28/23 12/30/23 iJn Rajan MD [address] [place] [phone] [email or web address] PCP - General Family Medicine 12/31/23 06/10/24 Isis Borges NP [address] [place] [address] PCP - General Nurse Practitioner 06/11/24 Jin Rajan MD [email or web address] Family Medicine 07/14/21 Alex Rider DO 30 [place] [address] [email or web address].FENCE. [facility] Primary Oncologist Hematology and Oncology 09/17/22 Juan Du MD [address] [place] [address] [address] [place] [phone] [email or web address] Primary Oncologist Medical Oncology 10/08/22 Khadar Forde MD [address] [place] [address] [address] [place] [address] [email or web address]@[facility] Radiation Oncology 10/10/22 Jody Fleming, ADELA [address] [place] [address] [email or web address] Primary Infusion Nurse 11/24/22 12/08/22 Yasmeen Dixon, ADELA 55 [place] [address] [email or web address] Primary Infusion Nurse 12/09/22 Alicia Franco, DONOR RELATIONS OFFICER [address] [place] [address] [email or web address] iCMP Plus Pastry Mixer Nurse Practitioner 09/26/2310/01 Roxana Fuchs RN [address] [place] [address] [email or web address] iCMP Plus Pastry Mixer 09/26/23 10/26/23 Mirlande Mai [address] [place] [address] [email or web address] G iCMP Plus Community Health Worker 09/26/23 10/26/23 Dawna Baugh [facility] [address] [place] [address] [email or web address] iCMP Plus Oil Lease Broker 09/26/23 10/26/23 Yusef Beck MBBS [address] [place] [phone] [email or web address] Medical Oncology 01/31/24 Alicia Franco, DONOR RELATIONS OFFICER [address] [place] [address] [email or web address] iCMP Plus Pastry Mixer Nurse Practitioner 05/14/2406/24 Romain Cheng MD, PhD [address] [place], [place] [address] [address] [email or web address]@[email or web address] Medical Oncology 05/12/25 Elizabet Quigley MD, PhD [address] [place], [place] [address] [place] [phone] [email or web address] Surgical Oncology 04/24/25 documented as of this encounter Additional Source Comments The information contained in this document represents components of the legal health record. It is not the complete legal health record.[facility]
--- OUTSIDE RECORDS SUMMARY | 2025-09-25 17:02 | XMS_ITS | Encounter Summary ---
Author Organization [facility] Address [address] [employer] [address] [address] Phone Care Team Providers Care Narcotics And/Or Vice Detective Name Role Phone Jin Rajan MD Unavailable [phone] Becca Stubbs NP Unavailable [phone] Becca Stubbs NP Primary Care Provider [phone] Alex Rider DO Unavailable [phone] Juan Du MD Unavailable [phone] Yasmeen Dixon RN Unavailable Al [email or web address] Khadar Forde MD Unavailable [phone] Jody Fleming RN Unavailable [email or web address] Yasmeen Dixon RN Unavailable Al [email or web address] .[facility] Jonas Coleman MD Primary Care Prov ider Alicia Franco PERSONAL DEVELOPMENT MENTOR Unavailable [phone] Roxana Fuchs RN Unavailable [phone] Mirlande Mai Unavailable [email or web address]@[email or web address] Dawna Baugh LM Unavailable [phone] Jin Rajan MD Primary Care Provider [phone] Yusef Beck MBBS Unavailable [phone] Alicia Franco PERSONAL DEVELOPMENT MENTOR Unavailable Isis Borges LOSS CONTROL TECHNICIAN Primary Care Provider Romain Cheng MD, PhD Unavailable Elizabet Quigley MD, PhD Unavailable Encounter Details Date Type Department Care Team (Late st Contact Info) Description 09/21/2022 Procedure Pass [facility] Imaging, [place]ont[place] 2 55 [facility], 2nd [place] [address] Social History Tobacco Use Types Packs/Day Years [...] Visit [facility] [address] [facility], 9th Floor, [address] [place] [address] Greyson Gilbert MD, PhD 55 [facility] [address] [place] [address] [email or web address] Scheduled Procedures Name Priority Associated [...] documented as of this encounter Care Teams Narcotics And/Or Vice Detective Relationship Specialty Start Date End Date Becca Stubbs, LOSS CONTROL TECHNICIAN [address] [place] [address] PCP - General Nurse Practitioner 05/08/22 04/27/23 Jonas Coleman MD [address] [place] [address] [email or web address] PCP - General Family Medicine 04/28/23 12/30/23 Jin Rajan MD [address] [place] [phone] [email or web address] PCP - General Family Medicine 12/31/23 06/10/24 Isis Borges NP [address] [place] [address] PCP - General Nurse Practitioner 06/11/24 Jin Rajan MD [email or web address] 07/14/21 Becca Stubbs NP [address] [place] [address] Primary Care Physician 01/27/1610/12 Alex Rider DO 30 [place] [address] [email or web address] Primary Oncologist Hematology and Oncology 09/17/22 Juan Du MD 55 [facility] [address] [place] [address] [email or web address] Primary Oncologist Medical Oncology 10/08/22 Yasmeen Dixon, ADELA [address] [place] [address] [email or web address]@[facility] Primary Infusion Nurse 10/08/22 11/23/22 Khadar Forde MD [address] [place] [address] [address] [place] [address] [email or web address] Radiation Oncology 10/10/22 Jody Fleming RN [address] [place] [address] [email or web address] Primary Infusion Nurse 11/24/22 12/08/22 Yasmeen Dixon, ADELA [address] [place] [address] [email or web address]@[email or web address] Primary Infusion Nurse 12/09/22 Alicia Franco, PERSONAL DEVELOPMENT MENTOR [address] [place] [address] [email or web address] iCMP Plus Cutter Grinder Nurse Practitioner 09/26/2310/01 Roxana Fuchs RN [address] [place] [address] [email or web address] iCMP Plus Cutter Grinder 09/26/23 10/26/23 Mirlande Mai [address] [place] [address] [email or web address] Stefany iCMP Plus Community Health Worker 09/26/23 10/26/23 Dawna Baugh [facility] [address] [place] [phone] [email or web address] iCMP Plus Rn Recovery 09/26/23 10/26/23 Yusef Beck MBBS [address] [place] [phone] [email or web address] Medical Oncology 01/31/24 Alicia Franco, PERSONAL DEVELOPMENT MENTOR [address] [place] [address] [email or web address] iCMP Plus Cutter Grinder Nurse Practitioner 05/14/2406/24 Romain Cheng MD, PhD [address] [place] [address] [email or web address]@[facility] Medical Oncology 05/12/25 Elizabet Quigley MD, PhD [address] [place] [phone] [email or web address] Surgical Oncology 04/24/25 documented as of this encounter Additional Source Comments The information contained in this document represents components of the legal health record. It is not the complete legal health record.[facility]
--- OUTSIDE RECORDS SUMMARY | 2025-09-25 17:02 | XMS_ITS | Encounter Summary ---
Author Organization [facility] Address [address] [address] Phone Care Team Providers Care Nurse Transition Name Role Phone Jin Rajan MD Unavailable [phone] Becca Stubbs NP Unavailable [phone] Becca Stubbs NP Primary Care Provider [phone] Alex Rider DO Unavailable [phone] Juan Du MD Unavailable [phone] Yasmeen Dixon RN Unavailable [email or web address] Khadar Forde MD Unavailable [phone] Jody Fleming RN Unavailable [email or web address] Yasmeen Dixon RN Unavailable [email or web address] Jonas Coleman MD Primary Care Prov ider Alicia Franco BAND SEWER Unavailable [phone] Roxana Fuchs RN Unavailable [phone] Mirlande Mai Unavailable [email or web address] Dawna Baugh LM Unavailable [phone] Jin Rajan MD Primary Care Provider [phone] Yusef Beck MBBS Unavailable Alicia Franco BAND SEWER Unavailable Isis Borges [employer] Primary Care Provider Romain Cheng MD, PhD Unavailable Elizabet Quigley MD, PhD Unavailable [phone] Reason for Referral * MRI/CAT Scan - Closed Specialty Diagnoses / Procedures Referred By Contac t Referred To Contact Radiology Diagnoses Malignant neoplasm of upper lobe of left lung Procedures CT PET Abdomen/Pelvis Pietro Tang MD Phone: tel: mailto:[email or web address] Referral ID Status Reason Start Date Expiration Date Visits Re quested Visits Authorized [id number] Closed 09/21/2022 09/21/2023 1 1 * MRI/CAT Scan - Closed Specialty Diagnoses / Procedures Referred By Contac t Referred To Contact Radiology Diagnoses Malignant neoplasm of upper lobe of left lung Procedures CT PET Chest Pietro Tang MD Phone: tel: mailto:[email or web address] Referral ID Status Reason Start Date Expiration Date Visits Re quested Visits Authorized [id number] Closed 09/21/2022 09/21/2023 1 1 * MRI/CAT Scan - Closed Specialty Diagnoses / Procedures Referred By Contac t Referred To Contact Radiology Diagnoses Malignant neoplasm of upper lobe of left lung Procedures CT PET Neck Pietro Tang MD Phone: tel: mailto:[email or web address] Referral ID Status Reason Start Date Expiration Date Visits Re quested Visits Authorized [id number] Closed 09/21/2022 09/21/2023 1 1 Encounter Details Date Type Department Care Team (Late st Contact Info) Description 09/21/2022 Ancillary Orders [facility] [place] [address] 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 ATTESTATION: I, Dr. Salomon Ross as teaching physician, have reviewed the images for this case and if necessary edited the report originally created by Crow Taylor. Narrative 09/22/2022 2:[address] PET ABDOMEN/PELVIS WITH CONTRAST TECHNIQUE: Multidetector-row CT of the abdomen and pelvis was performed after administration of intravenous contrast using tailored dose modulation techniques. Images were reconstructed in the axial, coronal, and sagittal planes. COMPARISON: CT CHEST WITH CONTRAST ; MRI ABDOMEN WITH AND WITHOUT CONTRAST FINDINGS: Lower chest: Please see the dictated report for the concurrently performed chest CT. Liver: 1.2 cm segment 7 hypoattenuating lesion, previously characterized as a hemangioma on MRI. No new or suspicious focal lesion. Biliary: No radiopaque calculi. No intrahepatic or extrahepatic biliary ductal dilatation. Spleen: Prior splenectomy. Pancreas: Prior distal pancreatectomy. No mass or ductal dilatation within the remnant pancreas. Likely interdigitating fat within the pancreatic head. Adrenal glands: Prior left adrenalectomy. No right adrenal gland nodule. Kidneys/Ureters: Prior left nephrectomy. No right solid mass, hydronephrosis, or stones. Bladder: No wall thickening or mass. Reproductive organs: No masses. Intrauterine device in place. Intravaginal and endocervical gas. Bowel: No dilation or wall thickening. The appendix is within normal limits. Colonic diverticulosis. Vessels: No abdominal aortic aneurysm. Peritoneum/Retroperitoneum: No masses, free air, or fluid. Lymph nodes: No lymphadenopathy. Soft tissues: Mild increase in size of a right upper abdominal/lower chest anterior abdominal wall cutaneous lesion (16:118). Post surgical changes in the anterior abdominal wall. Similar left posterolateral abdominal wall fat and nondistended small bowel containing hernia. Bones: Heterogeneous bone marrow density without associated increased radiotracer uptake. Subtle multifocal cortical erosion; for example along the bilateral proximal femora (16:897). Degenerative changes of the spine. Procedure Note Salomon Kulkarni MD - 09/22/2022 CT PET ABDOMEN/PELVIS WITH CONTRAST TECHNIQUE: Multidetector-row CT of the abdomen and pelvis was performedafter administration of intravenous contrast using tailored dosemodulation techniques. Images were reconstructed in the axial, coronal,and sagittal planes. COMPARISON: CT CHEST WITH CONTRAST ; MRI ABDOMEN WITH ANDWITHOUT CONTRAST FINDINGS: Lower chest: Please see the dictated report for the concurrently performedchest CT. Liver: 1.2 cm segment 7 hypoattenuating lesion, previously characterizedas a hemangioma on MRI. No new or suspicious focal lesion. Biliary: No radiopaque calculi. No intrahepatic or extrahepatic biliaryductal dilatation. Spleen: Prior splenectomy. Pancreas: Prior distal pancreatectomy. No mass or ductal dilatation withinthe remnant pancreas. Likely interdigitating fat within the pancreatichead. Adrenal glands: Prior left adrenalectomy. No right adrenal gland nodule. Kidneys/Ureters: Prior left nephrectomy. No right solid mass,hydronephrosis, or stones. Bladder: No wall thickening or mass. Reproductive organs: No masses. Intrauterine device in place. Intravaginaland endocervical gas. Bowel: No dilation or wall thickening. The appendix is within normallimits. Colonic diverticulosis. Vessels: No abdominal aortic aneurysm. Peritoneum/Retroperitoneum: No masses, free air, or fluid. Lymph nodes: No lymphadenopathy. Soft tissues: Mild increase in size of a right upper abdominal/lower chestanterior abdominal wall cutaneous lesion (16:118). Post surgical changesin the anterior abdominal wall. Similar left posterolateral abdominal wallfat and nondistended small bowel containing hernia. Bones: Heterogeneous bone marrow density without associated increasedradiotracer uptake. Subtle multifocal cortical erosion; for example alongthe bilateral proximal femora (16:897). Degenerative changes of thespine. IMPRESSION: - Heterogeneous bone marrow density with subtle multifocal corticalerosive changes in proximal femora but without associated increasedradiotracer uptake, nonspecific. ATTESTATION: I, Dr. Salomon Ross as teaching physician, havereviewed the images for this case and if necessary edited the reportoriginally created by Crow Taylor. us Pietro Tang MD IMG CT PETCT Final Result * CT PET CHEST WITH CONTRAST (09/21/2022 7:26 PM EST) Anatomical Region Laterality Modality Chest Positron Emissio n Tomography (PET) 09/22/2022 10:2 2 AM EST Impressions 09/22/2022 4:28 PM EST Staging for left upper lobe small cell lung cancer. 1. Slight interval increase in size of a left apical pulmonary mass abutting the posterior pleura, with radiotracer uptake, corresponding to biopsy-proven malignancy. 2. Right upper paratracheal, prevascular, AP window, left axillary, left subpectoral/interpectoral, left internal mammary, right hilar, and left suprahilar peribronchiolar lymphadenopathy with radiotracer uptake, concerning for teresa metastases. 3. Right maxillary sinusitis, which is likely odontogenic in etiology, related to dental disease involving the remaining right maxillary molar. RECOMMENDATIONS: 1. Follow up per clinical protocol. 2. Recommend dental evaluation. Narrative 09/22/2022 4:[address] PET CHEST WITH CONTRAST, CT PET NECK WITH CONTRAST TECHNIQUE: Multidetector CT of the neck and chest was performed with intravenous contrast using tailored dose modulation techniques. COMPARISON: CT CHEST WITH CONTRAST FINDINGS: Devices/Tubes/Lines: None. Neck: The visualized brain and orbits are unremarkable. There is fatty replacement of the bilateral parotids. The submandibular glands are unremarkable. There are postprocedural changes from total thyroidectomy and radioablation. The great vessels of the neck are patent. Subcentimeter bilateral submandibular and level 2 lymph nodes with radiotracer uptake are not significantly changed from 01/11/2011 and likely reactive. Beam hardening artifact from dental hardware limits evaluation of the oral cavity. There is mucosal thickening in the right maxillary sinus with associated radiotracer uptake. Otherwise, the paranasal sinuses and mastoid air cells are clear. There is periapical lucency associated with the remaining right maxillary molar. Lungs: There is slight interval increase in size of a left apical mass abutting the posterior pleura, which now measures approximately 3.4 x 3.9 cm (previously 2.9 x 3.6 cm on 08/17/2022), corresponding to biopsy-proven malignancy. A 5 mm right lower lobe nodule (11:296) is unchanged from 01/11/2011 and likely benign. Nodular thickening along an area of linear scarring versus atelectasis in the left lower lobe is not significantly changed from the prior study and demonstrates no significant radiotracer uptake. No new pulmonary nodules. The airways are clear. Pleura: No pleural effusion or pneumothorax. Mediastinum: The cardiac chambers are normal in size. 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 There is no pericardial effusion. Lymph Nodes: Enlarged left axillary/chest wall, left internal mammary, mediastinal lymph nodes, and hilar lymph nodes with associated radiotracer uptake are not significantly changed from the prior study, including: -Left interpectoral lymph nodes measuring up to 9 mm, left subpectoral lymph nodes measuring up to 6 mm, and left axillary lymph nodes measuring up to 11 mm. -Multiple enlarged left internal mammary lymph nodes measuring up to 9 mm. -Prevascular lymph nodes measuring up to 6 mm, AP window lymph nodes measuring up to 12 mm, right upper paratracheal lymph nodes measuring up to 11 mm, an 8 mm right hilar lymph node, and a 4 mm peribronchiolar lymph node in the left suprahilar region (11:197). There are no enlarged supraclavicular lymph nodes. Upper Abdomen: Please see concurrent abdominal CT for abdominal findings. Chest Wall: There are postsurgical changes from bilateral mastectomies with implant reconstruction. The morphology of the left breast implant and surrounding fluid are unchanged from the prior study and suggestive of intracapsular rupture. There are surgical clips in the right axilla. No chest wall mass. Bones: There are degenerative osseous changes. No suspicious lytic or blastic lesions. Procedure Note Liliam Raman MD - 09/22/2022 CT PET CHEST WITH CONTRAST, CT PET NECK WITH CONTRAST TECHNIQUE: Multidetector CT of the neck and chest was performed withintravenous contrast using tailored dose modulation techniques. COMPARISON: CT CHEST WITH CONTRAST FINDINGS: Devices/Tubes/Lines: None. Neck: The visualized brain and orbits are unremarkable. There is fattyreplacement of the bilateral parotids. The submandibular glands areunremarkable. There are postprocedural changes from total thyroidectomyand radioablation. The great vessels of the neck are patent. Subcentimeterbilateral submandibular and level 2 lymph nodes with radiotracer uptakeare not significantly changed from 01/11/2011 and likely reactive. Beamhardening artifact from dental hardware limits evaluation of the oralcavity. There is mucosal thickening in the right maxillary sinus withassociated radiotracer uptake. Otherwise, the paranasal sinuses andmastoid air cells are clear. There is periapical lucency associated withthe remaining right maxillary molar. Lungs: There is slight interval increase in size of a left apical massabutting the posterior pleura, which now measures approximately 3.4 x 3.9cm (previously 2.9 x 3.6 cm on 08/17/2022), corresponding to biopsy-provenmalignancy. A 5 mm right lower lobe nodule (11:296) is unchanged from01/11/2011 and likely benign. Nodular thickening along an area of linearscarring versus atelectasis in the left lower lobe is not significantlychanged from the prior study and demonstrates no significant radiotraceruptake. No new pulmonary nodules. The airways are clear. Pleura: No pleural effusion or pneumothorax. Mediastinum: The cardiac chambers are normal in size. An aberrant rightsubclavian artery courses posterior to the esophagus and is a normalanatomic variant. There is no pericardial effusion. Lymph Nodes: Enlarged left axillary/chest wall, left internal mammary,mediastinal lymph nodes, and hilar lymph nodes with associated radiotraceruptake are not significantly changed from the prior study, including: -Left interpectoral lymph nodes measuring up to 9 mm, left subpectorallymph nodes measuring up to 6 mm, and left axillary lymph nodes measuringup to 11 mm. -Multiple enlarged left internal mammary lymph nodes measuring up to 9mm. -Prevascular lymph nodes measuring up to 6 mm, AP window lymph nodesmeasuring up to 12 mm, right upper paratracheal lymph nodes measuring upto 11 mm, an 8 mm right hilar lymph node, and a 4 mm peribronchiolar lymphnode in the left suprahilar region (11:197). There are no enlarged supraclavicular lymph nodes. Upper Abdomen: Please see concurrent abdominal CT for abdominalfindings. Chest Wall: There are postsurgical changes from bilateral mastectomieswith implant reconstruction. The morphology of the left breast implant andsurrounding fluid are unchanged from the prior study and suggestive ofintracapsular rupture. There are surgical clips in the right axilla. Nochest wall mass. Bones: There are degenerative osseous changes. No suspicious lytic orblastic lesions. IMPRESSION: Staging for left upper lobe small cell lung cancer. 1. Slight interval increase in size of a left apical pulmonary massabutting the posterior pleura, with radiotracer uptake, corresponding tobiopsy-proven malignancy. 2. Right upper paratracheal, prevascular, AP window, left axillary, leftsubpectoral/interpectoral, left internal mammary, right hilar, and leftsuprahilar peribronchiolar lymphadenopathy with radiotracer uptake,concerning for teresa metastases. 3. Right maxillary sinusitis, which is likely odontogenic in etiology,related to dental disease involving the remaining right maxillary molar. RECOMMENDATIONS: 1. Follow up per clinical protocol. 2. Recommend dental evaluation. Pietro Tang MD IMG CT PETCT Final Result * CT PET NECK WITH CONTRAST (09/21/2022 7:26 PM EST) Anatomical Region Laterality Modality Neck Positron Emissio n Tomography (PET) 09/22/2022 10:2 2 AM EST Impressions 09/22/2022 4:28 PM EST Staging for left upper lobe small cell lung cancer. 1. Slight interval increase in size of a left apical pulmonary mass abutting the posterior pleura, with radiotracer uptake, corresponding to biopsy-proven malignancy. 2. Right upper paratracheal, prevascular, AP window, left axillary, left subpectoral/interpectoral, left internal mammary, right hilar, and left suprahilar peribronchiolar lymphadenopathy with radiotracer uptake, concerning for teresa metastases. 3. Right maxillary sinusitis, which is likely odontogenic in etiology, related to dental disease involving the remaining right maxillary molar. RECOMMENDATIONS: 1. Follow up per clinical protocol. 2. Recommend dental evaluation. Narrative 09/22/2022 4:[address] PET CHEST WITH CONTRAST, CT PET NECK WITH CONTRAST TECHNIQUE: Multidetector CT of the neck and chest was performed with intravenous contrast using tailored dose modulation techniques. COMPARISON: CT CHEST WITH CONTRAST FINDINGS: Devices/Tubes/Lines: None. Neck: The visualized brain and orbits are unremarkable. There is fatty replacement of the bilateral parotids. The submandibular glands are unremarkable. There are postprocedural changes from total thyroidectomy and radioablation. The great vessels of the neck are patent. Subcentimeter bilateral submandibular and level 2 lymph nodes with radiotracer uptake are not significantly changed from 01/11/2011 and likely reactive. Beam hardening artifact from dental hardware limits evaluation of the oral cavity. There is mucosal thickening in the right maxillary sinus with associated radiotracer uptake. Otherwise, the paranasal sinuses and mastoid air cells are clear. There is periapical lucency associated with the remaining right maxillary molar. Lungs: There is slight interval increase in size of a left apical mass abutting the posterior pleura, which now measures approximately 3.4 x 3.9 cm (previously 2.9 x 3.6 cm on 08/17/2022), corresponding to biopsy-proven malignancy. A 5 mm right lower lobe nodule (11:296) is unchanged from 01/11/2011 and likely benign. Nodular thickening along an area of linear scarring versus atelectasis in the left lower lobe is not significantly changed from the prior study and demonstrates no significant radiotracer uptake. No new pulmonary nodules. The airways are clear. Pleura: No pleural effusion or pneumothorax. Mediastinum: The cardiac chambers are normal in size. 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 There is no pericardial effusion. Lymph Nodes: Enlarged left axillary/chest wall, left internal mammary, mediastinal lymph nodes, and hilar lymph nodes with associated radiotracer uptake are not significantly changed from the prior study, including: -Left interpectoral lymph nodes measuring up to 9 mm, left subpectoral lymph nodes measuring up to 6 mm, and left axillary lymph nodes measuring up to 11 mm. -Multiple enlarged left internal mammary lymph nodes measuring up to 9 mm. -Prevascular lymph nodes measuring up to 6 mm, AP window lymph nodes measuring up to 12 mm, right upper paratracheal lymph nodes measuring up to 11 mm, an 8 mm right hilar lymph node, and a 4 mm peribronchiolar lymph node in the left suprahilar region (11:197). There are no enlarged supraclavicular lymph nodes. Upper Abdomen: Please see concurrent abdominal CT for abdominal findings. Chest Wall: There are postsurgical changes from bilateral mastectomies with implant reconstruction. The morphology of the left breast implant and surrounding fluid are unchanged from the prior study and suggestive of intracapsular rupture. There are surgical clips in the right axilla. No chest wall mass. Bones: There are degenerative osseous changes. No suspicious lytic or blastic lesions. Procedure Note Liliam Raman MD - 09/22/2022 CT PET CHEST WITH CONTRAST, CT PET NECK WITH CONTRAST TECHNIQUE: Multidetector CT of the neck and chest was performed withintravenous contrast using tailored dose modulation techniques. COMPARISON: CT CHEST WITH CONTRAST FINDINGS: Devices/Tubes/Lines: None. Neck: The visualized brain and orbits are unremarkable. There is fattyreplacement of the bilateral parotids. The submandibular glands areunremarkable. There are postprocedural changes from total thyroidectomyand radioablation. The great vessels of the neck are patent. Subcentimeterbilateral submandibular and level 2 lymph nodes with radiotracer uptakeare not significantly changed from 01/11/2011 and likely reactive. Beamhardening artifact from dental hardware limits evaluation of the oralcavity. There is mucosal thickening in the right maxillary sinus withassociated radiotracer uptake. Otherwise, the paranasal sinuses andmastoid air cells are clear. There is periapical lucency associated withthe remaining right maxillary molar. Lungs: There is slight interval increase in size of a left apical massabutting the posterior pleura, which now measures approximately 3.4 x 3.9cm (previously 2.9 x 3.6 cm on 08/17/2022), corresponding to biopsy-provenmalignancy. A 5 mm right lower lobe nodule (11:296) is unchanged from01/11/2011 and likely benign. Nodular thickening along an area of linearscarring versus atelectasis in the left lower lobe is not significantlychanged from the prior study and demonstrates no significant radiotraceruptake. No new pulmonary nodules. The airways are clear. Pleura: No pleural effusion or pneumothorax. Mediastinum: The cardiac chambers are normal in size. An aberrant rightsubclavian artery courses posterior to the esophagus and is a normalanatomic variant. There is no pericardial effusion. Lymph Nodes: Enlarged left axillary/chest wall, left internal mammary,mediastinal lymph nodes, and hilar lymph nodes with associated radiotraceruptake are not significantly changed from the prior study, including: -Left interpectoral lymph nodes measuring up to 9 mm, left subpectorallymph nodes measuring up to 6 mm, and left axillary lymph nodes measuringup to 11 mm. -Multiple enlarged left internal mammary lymph nodes measuring up to 9mm. -Prevascular lymph nodes measuring up to 6 mm, AP window lymph nodesmeasuring up to 12 mm, right upper paratracheal lymph nodes measuring upto 11 mm, an 8 mm right hilar lymph node, and a 4 mm peribronchiolar lymphnode in the left suprahilar region (11:197). There are no enlarged supraclavicular lymph nodes. Upper Abdomen: Please see concurrent abdominal CT for abdominalfindings. Chest Wall: There are postsurgical changes from bilateral mastectomieswith implant reconstruction. The morphology of the left breast implant andsurrounding fluid are unchanged from the prior study and suggestive ofintracapsular rupture. There are surgical clips in the right axilla. Nochest wall mass. Bones: There are degenerative osseous changes. No suspicious lytic orblastic lesions. IMPRESSION: Staging for left upper lobe small cell lung cancer. 1. Slight interval increase in size of a left apical pulmonary massabutting the posterior pleura, with radiotracer uptake, corresponding tobiopsy-proven malignancy. 2. Right upper paratracheal, prevascular, AP window, left axillary, leftsubpectoral/interpectoral, left internal mammary, right hilar, and leftsuprahilar peribronchiolar lymphadenopathy with radiotracer uptake,concerning for teresa metastases. 3. Right maxillary sinusitis, which is likely odontogenic in etiology,related to dental disease involving the remaining right maxillary molar. RECOMMENDATIONS: 1. Follow up per clinical protocol. 2. Recommend dental evaluation. Pietro Tang MD IM CT PETCT Final Result documented in this encounter Visit Diagnoses Diagnosis Malignant neoplasm of upper lobe of left lung Malignant neoplasm of upper lobe of left lung documented in this encounter Additional Health Concerns Infection Onset Date Last Indicated Resolved Time CoV-Presumed Comment:Per Note Documentation 09/28/2022 09/27/2022 2 4:26 PM EST CoV-Risk Comment:Per note documentation 12/28/2022 12/28/2022 3 9:53 AM EST CoV-Risk 12/07/2023 12/07/2023 12/18/2023 1:22 AM EST CoV-Risk 12/31/2023 12/31/2023 01/11/2024 1:22 AM EDT MRSA 08/03/2024 06/03/2025 documented as of this encounter Care Teams Nurse Transition Relationship Specialty Start Date End Date Becca Stubbs NP [address] [place] [address] PCP - General Nurse Practitioner 05/08/22 04/27/23 Jonas Coleman MD [address] [place] [address] [email or web address] PCP - General Family Medicine 04/28/23 12/30/23 Jin Rajan MD [address] [place] [phone] [email or web address] PCP - General Family Medicine 12/31/23 06/10/24 Isis Borges NP [address] [place] [address] PCP - General Nurse Practitioner 06/11/24 Jin Rajan MD [email or web address] Family Medicine 07/14/21 Becca Stubbs NP [address] [place] [address] Primary Care Physician 01/27/1610/12 Alex Rider DO [address] [place] [address] [email or web address]. [facility] Primary Oncologist Hematology and Oncology 09/17/22 Juan Du MD [address] [place] [address] [address] [place] [phone] [email or web address] Primary Oncologist Medical Oncology 10/08/22 Yasmeen Dioxn, ADELA [address] [place] [address] [email or web address] Primary Infusion Nurse 10/08/22 11/23/22 Khadar Forde MD [address] [place] [address] [email or web address] Radiation Oncology 10/10/22 Jody Fleming RN [address] [place] [address] [email or web address] Primary Infusion Nurse 11/24/22 12/08/22 Yasmeen Dixon, ADELA [address] [place] [address] [email or web address]@D [email or web address] Primary Infusion Nurse 12/09/22 Alicia Franco, LENKA [address] [place] [address] [email or web address] iCMP Plus Box Person Nurse Practitioner 09/26/2310/01 Roxana Fuchs RN [address] [place] [address] [email or web address] iCMP Plus Box Person 09/26/23 10/26/23 Mirlande Mai [facility] [place] [address] [email or web address] G iCMP Plus Community Health Worker 09/26/23 10/26/23 Dawna Baugh [facility] [address] [place] [address] [email or web address] iCMP Plus Environmental Research Project Manager 09/26/23 10/26/23 Yusef Beck MBBS [address] [place] [phone] [email or web address] Medical Oncology 01/31/24 Alicia Franco, BAND SEWER [address] [place] [address] [email or web address] iCMP Plus Box Person Nurse Practitioner 05/14/2406/24 Romain Cheng MD, PhD [address] [place] [address] [email or web address] Medical Oncology 05/12/25 Elizabet Quigley MD, PhD [address] [place] [phone] [email or web address] Surgical Oncology 04/24/25 documented as of this encounter Additional Source Comments The information contained in this document represents components of the legal health record. It is not the complete legal health record.[facility]
--- OUTSIDE RECORDS SUMMARY | 2025-09-25 17:02 | XMS_ITS | Encounter Summary ---
Author Organization [facility] Address [address] [address] Phone Care Team Providers Care Playback Operator Name Role Phone Jin Rajan MD Unavailable [phone] Becca Stubbs NP Unavailable [phone] Becca Stubbs NP Primary Care Provider [phone] Alex Rider DO Unavailable [phone] Juan Du MD Unavailable [phone] Yasmeen Dixon RN Unavailable Al [email or web address] .[facility] Khadar Forde MD Unavailable [phone] Jody Fleming RN Unavailable [email or web address] Yasmeen Dixon RN Unavailable Al [email or web address]@[email or web address] .[facility] Jonas Coleman MD Primary Care Prov ider Alicia Franco PLATER APPRENTICE Unavailable [phone] Roxana Fuchs RN Unavailable [phone] Mirlande Mai Unavailable [email or web address] Dawna Baugh LM Unavailable [phone] iJn Rajan MD Primary Care Provider [phone] Yusef Beck MBBS Unavailable [phone] Alicia Franco PLATER APPRENTICE Unavailable [phone] Isis Borges DATA ARCHITECT Primary Care Provider Romain Cheng MD, PhD Unavailable Elizabet Quigley MD, PhD Unavailable [phone] Encounter Details Date Type Department Care Team (Late st Contact Info) Description 09/21/2022 Procedure Pass [facility] Imaging, Donta [address] [facility], 2nd [place] [address] Social History Tobacco Use Types Packs/Day Years [...] Office Visit [facility] [address] [facility], 9th Floor, [address] [place] [address] Greyson Gilbert MD, PhD 55 [facility] [address] [place] [address] [email or web address] Scheduled Procedures Name Priority Associated Diagnoses Date/Ti [...] documented as of this encounter Care Teams Playback Operator Relationship Specialty Start Date End Date Becca Stubbs, DATA ARCHITECT [address] [place] [address] PCP - General Nurse Practitioner 05/08/22 04/27/23 Jonas Coleman MD [address] [place] [address] [email or web address] PCP - General Family Medicine 04/28/23 12/30/23 Jin Rajan MD [address] [place] [phone] [email or web address] PCP - General Family Medicine 12/31/23 06/10/24 Isis Borges NP [address] [place] [address] PCP - General Nurse Practitioner 06/11/24 Jin Rajan MD [email or web address] [employer] [facility] 07/14/21 Becca Stubbs NP [address] [place] [address] Primary Care Physician 01/27/1610/12 Alex Rider DO [address] [place] [address] [email or web address]. [facility] Primary Oncologist Hematology and Oncology 09/17/22 Juan Du MD [address] [facility] [address] [place] [phone] [email or web address] Primary Oncologist Medical Oncology 10/08/22 Yasmeen Dixon, ADELA [address] [place] [address] [email or web address] [email or web address] Primary Infusion Nurse 10/08/22 11/23/22 Khadar Forde MD [address] [place] [address] [address] [place] [address] [email or web address] Radiation Oncology 10/10/22 Jody Fleming RN [address] [place] [address] [email or web address] Primary Infusion Nurse 11/24/22 12/08/22 Yasmeen Dixon, ADELA [address] [place] [address] [email or web address]@D [email or web address] Primary Infusion Nurse 12/09/22 Alicia Franco, PLATER APPRENTICE [address] [place] [address] [email or web address] iCMP Plus Search Consultant Nurse Practitioner 09/26/2310/01 Roxana Fuchs RN [address] [place] [address] [email or web address] iCMP Plus Search Consultant 09/26/23 10/26/23 Mirlande Mai [address] [place] [address] [email or web address] iCMP Plus Community Health Worker 09/26/23 10/26/23 Dawna Baugh [facility] [address] [place] [phone] [email or web address] iCMP Plus Compo Conveyor Operator 09/26/23 10/26/23 Yusef Beck MBBS [address] [place] [phone] [email or web address] Medical Oncology 01/31/24 Alicia Franco, PLATER APPRENTICE [address] [place] [address] [email or web address] iCMP Plus Search Consultant Nurse Practitioner 05/14/2406/24 Romain Cheng MD, PhD [address] [place] [address] [email or web address] Medical Oncology 05/12/25 Elizabet Quigley MD, PhD [address] [place] [phone] [email or web address] Surgical Oncology 04/24/25 documented as of this encounter Additional Source Comments The information contained in this document represents components of the legal health record. It is not the complete legal health record.[facility]
--- OUTSIDE RECORDS SUMMARY | 2025-09-25 17:02 | XMS_ITS | Encounter Summary ---
Author Organization [facility] Address [address] [address] Phone Care Team Providers Care Health Therapist Name Role Phone Jin Rajan MD Unavailable + Becca Stubbs STATISTICAL ENGINEER Primary Care Provider + Alex Rider DO Unavailable [phone] Juan Du MD Unavailable [phone] Khadar Forde MD Unavailable [phone] Jody Fleming RN Unavailable [email or web address] Yasmeen Dixon RN Unavailable Al [email or web address] .[facility] Jonas Coleman MD Primary Care Prov ider + Alicia Franco PASTA MAKER Unavailable [phone] Roxana Fuchs RN Unavailable [phone] Mirlande Mai Unavailable [email or web address] Dawna Baugh LMHC Unavailable [phone] Jin Rajan MD Primary Care Provider [phone] Yusef Beck MBBS Unavailable [phone] Alicia Franco PASTA MAKER Unavailable [phone] Isis Borges STATISTICAL ENGINEER Primary Care Provider Romain Cheng MD, PhD Unavailable Elizabet Quigley MD, PhD Unavailable Encounter Details Date Type Department Care Team (Late Contact Info) Description 11/25/2022 Procedure Pass [facility] Imaging - RF/IR 55 [facility], 2nd [place] [address] Social History Tobacco Use Types Packs/Day Years [...] Visit Center for Breast Cancer [address] [facility], 9th Floor, [address] [place] [address] Greyson Gilbert MD, PhD [address] [place] [address] [email or web address] Scheduled Procedures Name Priority Associated Diagnoses Date/Ti me 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 documented as of this encounter Visit Diagnoses Not on filedocumented in this encounter Additional Health Concerns Infection Onset Date Last Indicated Resolved Time CoV-Risk Comment:Per note documentation 12/28/2022 12/28/2022 9:53 AM EST CoV-Risk 12/07/2023 12/07/2023 12/18/2023 1:2 2 AM EST CoV-Risk 12/31/2023 12/31/2023 01/11/2024 1:22 AM EDT MRSA 08/03/2024 06/03/2025 documented as of this encounter Care Teams Health Therapist Relationship Specialty Start Date End Date Becca Stubbs STATISTICAL ENGINEER [address] [place] [address] PCP - General Nurse Practitioner 05/08/22 04/27/23 Jonas Coleman MD [address] [place] [address] [email or web address] PCP - General Family Medicine 04/28/23 12/30/23 Jin Rajan MD [address] [place] [phone] [email or web address] PCP - General Family Medicine 12/31/23 06/10/24 Isis Borges NP [address] [place] [address] PCP - General Nurse Practitioner 06/11/24 Jin Rajan MD [email or web address] Family Medicine 07/14/21 Alex Rider DO [address] [place] [address] [email or web address].[place]. [facility] Primary Oncologist Hematology and Oncology 09/17/22 Juan Du MD [address] [place] [address] [address] [place] [phone] [email or web address] Primary Oncologist Medical Oncology 10/08/22 Khadar Forde MD [address] [place] [address] [address] [place] [address] [email or web address] Radiation Oncology 10/10/22 Jody Fleming, ADELA [address] [place] [address] [email or web address] Primary Infusion Nurse 11/24/22 12/08/22 Yasmeen Dixon, ADELA [address] [place] [address] [email or web address]@D [email or web address] Primary Infusion Nurse 12/09/22 Alicia Franco, PASTA MAKER [address] [place] [address] [email or web address] iCMP Plus Cigarette Making Machine Hopper Feeder Nurse Practitioner 09/26/2310/01 Roxana Fuchs RN [facility] [place] [address] [email or web address] iCMP Plus Cigarette Making Machine Hopper Feeder 09/26/23 10/26/23 Mirlande Mai [address] [place] [address] [email or web address] G iCMP Plus Community Health Worker 09/26/23 10/26/23 Dawna Baugh [facility] [address] [place] [address] [email or web address] iCMP Plus Hand Coremaker 09/26/23 10/26/23 Yusef Beck MBBS [address] [place] [phone] [email or web address] Medical Oncology 01/31/24 Alicia Franco, PASTA MAKER [address] [place] [address] [email or web address] iCMP Plus Cigarette Making Machine Hopper Feeder Nurse Practitioner 05/14/2406/24 Romain Cheng MD, PhD [address] [place], [place] [address] [place] [address] [email or web address], [facility] Medical Oncology 05/12/25 Elizabet Quigley MD, PhD [address] [place], [place] [address] [place] [phone] [email or web address] Surgical Oncology 04/24/25 documented as of this encounter Additional Source Comments The information contained in this document represents components of the legal health record. It is not the complete legal health record.[facility]
--- OUTSIDE RECORDS SUMMARY | 2025-09-25 17:02 | XMS_ITS | Encounter Summary ---
Author Organization [facility] Address [address] [employer] [address] [address] Phone Care Team Providers Care Auto Parts Handler Name Role Phone Jin Rajan MD Unavailable [phone] Becca Stubbs NP Unavailable [phone] Nora Hood MD Unavailable [phone] Becca Stubbs NP Primary Care Provider [phone] Alex Rider DO Unavailable [phone] Juan Du MD Unavailable [phone] Yasmeen Dixon RN Unavailable Al [email or web address] .[facility] Khadar Forde MD Unavailable [phone] Jody Fleming RN Unavailable [email or web address] Yasmeen Dixon RN Unavailable Al [email or web address]@[email or web address] .[facility] Jonas Coleman MD Primary Care Prov ider Alicia Franco [employer] Unavailable [phone] Roxana Fuchs RN Unavailable [phone] Mirlande Mai Unavailable [email or web address] Dawna Baugh [facility] Unavailable [phone] Jin Rajan MD Primary Care Provider [phone] Yusef Beck MBBS Unavailable [phone] Alicia Franco [employer] Unavailable Isis Borges STRUCTURAL STEEL ERECTION SUPERVISOR Primary Care Provider Romain Cheng MD, PhD Unavailable [phone] Elizabet Quigley MD, PhD Unavailable Encounter Details Date Type Department Care Team (Late st Contact Info) Description 08/05/2022 Procedure Pass [facility], Ct Scan - [address] [address] Social History Tobacco Use Types Packs/Day Years [...] EST Office Visit [facility] [address] [place] [address], 9th Floor, [address] [place] [address] Greyson Gilbert MD, PhD 55 [facility] [address] [place] [address] [email or web address] Scheduled Procedures Name Priority Associated Diagnoses Date/Ti [...] documented as of this encounter Care Teams Auto Parts Handler Relationship Specialty Start Date End Date Becca Stubbs NP [address] [place] [address] PCP - General Nurse Practitioner 05/08/22 04/27/23 Jonas Coleman MD [address] [place] [address] [email or web address] PCP - General Family Medicine 04/28/23 12/30/23 Jin Rajan MD [address] [place] [phone] [email or web address] PCP - General Family Medicine 12/31/23 06/10/24 Isis Borges NP [address] [place] [address] PCP - General Nurse Practitioner 06/11/24 Jin Rajan MD [email or web address] 07/14/21 Becca Stubbs NP [address] [place] [address] Primary Care Physician 01/27/1610/12 Nora Hood MD [address] [place] [address] [email or web address] Primary Oncologist Medical Oncology 12/19/20 09/16/22 Alex Rider DO [address] [place] [address] [email or web address] Primary Oncologist Hematology and Oncology 09/17/22 Juan Du MD [address] [place] [address] [address] [place] [phone] [email or web address] Primary Oncologist Medical Oncology 10/08/22 Yasmeen Dixon, ADELA [address] [place] [address] [email or web address] [email or web address] Primary Infusion Nurse 10/08/22 11/23/22 Khadar Forde MD [address] [place] [address] [email or web address] Radiation Oncology 10/10/22 Jody Fleming RN [address] [place] [address] [email or web address] Primary Infusion Nurse 11/24/22 12/08/22 Yasmeen Dixon RN [address] [place] [address] [email or web address] Primary Infusion Nurse 12/09/22 Alicia Franco, [employer] [address] [place] [address] [email or web address] iCMP Plus Project Intern Nurse Practitioner 09/26/2310/01 Roxana Fuchs, ADELA [address] [employer] [place] [address] [email or web address] iCMP Plus Project Intern 09/26/23 10/26/23 Mirlande Mai [address] [place] [address] [email or web address] iCMP Plus Community Health Worker 09/26/23 10/26/23 Dawna Baugh, [facility] [address] [place] [address] [email or web address] iCMP Plus Multimedia Technician 09/26/23 10/26/23 Yusef Beck MBBS [address] [place] [phone] [email or web address] Medical Oncology 01/31/24 Alicia Franco, [employer] [address] [place] [address] [email or web address] iCMP Plus Project Intern Nurse Practitioner 05/14/2406/24 Romain Cheng MD, PhD [address] [address] [email or web address] Medical Oncology 05/12/25 Elizabet Quigley MD, PhD [address] [place] [phone] [email or web address] Surgical Oncology 04/24/25 documented as of this encounter Additional Source Comments The information contained in this document represents components of the legal health record. It is not the complete legal health record.[facility]
--- OUTSIDE RECORDS SUMMARY | 2025-09-25 17:02 | XMS_ITS | Encounter Summary ---
Author Organization [facility] Address [address] [employer] [address] [address] Phone Care Team Providers Care Liquefied Petroleum Gasfitter Name Role Phone Jin Rajan MD Unavailable [phone] Alex Rider DO Unavailable [phone] Juan Du MD Unavailable [phone] Khadar Forde MD Unavailable [phone] Yasmeen Dixon RN Unavailable [email or web address] .[email or web address] Jonas Coleman MD Primary Care Prov ider Alicia Franco SET DESIGNER Unavailable [phone] Roxana Fuchs RN Unavailable [phone] Mirlande Mai Unavailable [email or web address] Dawna Baugh [facility] Unavailable [phone] Jin Rajan MD Primary Care Provider [phone] Yusef Beck MBBS Unavailable [phone] Alicia Franco SET DESIGNER Unavailable [phone] Isis Borges NP Primary Care Provider Romain Cheng MD, PhD Unavailable [phone] Elizabet Quigley MD, PhD Unavailable [phone] Encounter Details Date Type Department Care Team (Late Contact Info) Description 08/18/2023 Procedure Pass [facility], Ct Scan - [address] [address] Social History Tobacco Use Types Packs/Day Years [...] Upcoming Encounters Date Type Department Care Team ([facility] Contact Info) Description 10/18/2025 3:20 PM EST Office [facility] [address] [place] [address], 9th Floor, [address] [place] [address] Greyson Gilbert MD, PhD [facility] [address] [place] [address] [email or web address] Scheduled Procedures Name Priority Associated Diagnoses Date/Ti me 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 documented as of this encounter Visit Diagnoses Not on filedocumented in this encounter Additional Health Concerns Infection Onset Date Last Indicated Resolved Time CoV-Risk 12/07/2023 12/07/2023 12/18/2023 1:22 AM EST CoV-Risk 12/31/2023 12/31/2023 01/11/2024 1:22 AM EDT MRSA 08/03/2024 06/03/2025 documented as of this encounter Care Teams Liquefied Petroleum Gasfitter Relationship Specialty Start Date End Date Jonas Coleman MD [address] [place] [address] [email or web address] PCP - General Family Medicine 04/28/23 12/30/23 Jin Rajan MD [address] [place] [phone] [email or web address] PCP - General Family Medicine 12/31/23 06/10/24 Isis Borges NP [address] [place] [address] PCP - General Nurse Practitioner 06/11/24 Jin Rajan MD [email or web address] Family Medicine 07/14/21 Alex Rider DO [address] [place] [address] [email or web address] Primary Oncologist Hematology and Oncology 09/17/22 Juan Du MD [address] [place] [address] [address] [place] [phone] [email or web address] Primary Oncologist Medical Oncology 10/08/22 Khadar Forde MD [address] [place] [address] [address] [place] [address] [email or web address] Radiation Oncology 10/10/22 Yasmeen Dixon, ADELA [address] [place] [address] [email or web address] Primary Infusion Nurse 12/09/22 Alicia Franco, SET DESIGNER [address] [place] [address] [email or web address] iCMP Plus Air Export Coordinator Nurse Practitioner 09/26/2310/01 Roxana Fuchs, ADELA [facility] [place] [address] [email or web address] iCMP Plus Air Export Coordinator 09/26/23 10/26/23 Mirlande Mai [facility] [place] [address] [email or web address] iCMP Plus Community Health Worker 09/26/23 10/26/23 Dawna Baugh [facility] [address] [place] [address] [email or web address] iCMP Plus Accident Examiner 09/26/23 10/26/23 Yusef Beck MBBS [address] [place] [phone] [email or web address] Medical Oncology 01/31/24 Alicia Franco, SET DESIGNER [address] [place] [address] [email or web address] iCMP Plus Air Export Coordinator Nurse Practitioner 05/14/2406/24 Romain Cheng MD, PhD [address] [place] [address] YA-[address] [place] [address] [email or web address]@[facility] Medical Oncology 05/12/25 Elizabet Quigley MD, PhD [address] [place] [phone] [email or web address] Surgical Oncology 04/24/25 documented as of this encounter Additional Source Comments The information contained in this document represents components of the legal health record. It is not the complete legal health record.[facility]
--- OUTSIDE RECORDS SUMMARY | 2025-09-25 17:02 | XMS_ITS | Encounter Summary ---
Author Organization [facility] Address [address] [address] [address] Phone Care Team Providers Care Alumni Relations Officer Name Role Phone Jin Rajan MD Unavailable [phone] Becca Stubbs NP Unavailable [phone] Becca Stubbs NP Primary Care Provider [phone] Alex Rider DO Unavailable [phone] Juan Du MD Unavailable [phone] Yasmeen Dixon RN Unavailable Al [email or web address] [facility] Khadar Forde MD Unavailable [phone] Jody Fleming RN Unavailable [email or web address] Yasmeen Dixon RN Unavailable Al [email or web address] [facility] Jonas Coleman MD Primary Care Prov ider Alicia Franco VARITYPIST Unavailable [phone] Roxana Fuchs RN Unavailable [phone] Mirlande Mai Unavailable [email or web address] Dawna Baugh LM Unavailable [phone] Jin Rajan MD Primary Care Provider [phone] Yusef Beck MBBS Unavailable [phone] Alicia Franco VARITYPIST Unavailable Isis Borges INSTRUMENT REPAIRER STEAM PLANT Primary Care Provider Romain Cheng MD, PhD Unavailable [phone] Elizabet Quigley MD, PhD Unavailable Encounter Details Date Type Department Care Team (Late st Contact Info) Description 09/21/2022 Procedure Pass [facility], Donta 2 [address] [facility], 2nd [place] [address] Social History Tobacco Use Types Packs/Day Years [...] Office Visit [facility] [address] [facility], 9th Floor, [address] [place] [address] Greyson Gilbert MD, PhD 55 [facility] [address] [place] [address] [email or web address] Scheduled Procedures Name [...] documented as of this encounter Care Teams Alumni Relations Officer Relationship Specialty Start Date End Date Becca Stubbs, INSTRUMENT REPAIRER [employer] [address] [place] [address] PCP - General Nurse Practitioner 05/08/22 04/27/23 Jonas Coleman MD [address] [place] [address] [email or web address] PCP - General Family Medicine 04/28/23 12/30/23 Jin Rajan MD [address] [place] [phone] [email or web address] PCP - General Family Medicine 12/31/23 06/10/24 Isis Borges NP [address] [place] [place] [address] PCP - General Nurse Practitioner 06/11/24 Jin Rajan MD [email or web address] Family Medicine 07/14/21 Becca Stubbs NP [address] [place] [address] Primary Care Physician 01/27/1610/12 Alex Rider DO [address] [place] [address] [email or web address] Primary Oncologist Hematology and Oncology 09/17/22 Juan Du MD 55 [facility] [address] [place] [address] [email or web address] Primary Oncologist Medical Oncology 10/08/22 Yasmeen Dixon, ADELA [address] [place] [address] [email or web address] [email or web address] Primary Infusion Nurse 10/08/22 11/23/22 Khadar Forde MD [address] [place] [address] [address] [place] [address] [email or web address] Radiation Oncology 10/10/22 Jody Fleming RN [address] [place] [address] [email or web address] Primary Infusion Nurse 11/24/22 12/08/22 Yasmeen Dixon, ADELA [address] [place] [address] [email or web address]@[email or web address] Primary Infusion Nurse 12/09/22 Alicia Franco, VARITYPIST [address] [place] [address] [email or web address] iCMP Plus Sole Leather Cutting Machine Operator Nurse Practitioner 09/26/2310/01 Roxana Fuchs RN [address] [place] [address] [email or web address] iCMP Plus Sole Leather Cutting Machine Operator 09/26/23 10/26/23 Mirlande Mai [address] [place] [address] [email or web address] Stef[employer] iCMP Plus Community Health Worker 09/26/23 10/26/23 Dawna Baugh [facility] [address] [place] [phone] [email or web address] iCMP Plus Telegraph Repeater Technician 09/26/23 10/26/23 Yusef Beck MBBS [address] [place] [phone] [email or web address] Medical Oncology 01/31/24 Alicia Franco, VARITYPIST [address] [place] [address] [email or web address] iCMP Plus Sole Leather Cutting Machine Operator Nurse Practitioner 05/14/2406/24 Romain Cheng MD, PhD [address] [place] [address] [email or web address] Medical Oncology 05/12/25 Elizabet Quigley MD, PhD [address] [place] [phone] [email or web address] Surgical Oncology 04/24/25 documented as of this encounter Additional Source Comments The information contained in this document represents components of the legal health record. It is not the complete legal health record.[facility]
--- OUTSIDE RECORDS SUMMARY | 2025-09-25 17:02 | XMS_ITS | Encounter Summary ---
Author Organization [facility] Address [address] [employer] [address] [address] Phone Care Team Providers Care Field Marketing Director Name Role Phone Jin Rajan MD Unavailable [phone] Becca Stubbs NP Unavailable [phone] Nora Hood MD Unavailable [phone] Becca Stubbs NP Primary Care Provider [phone] Alex Rider DO Unavailable [phone] Juan Du MD Unavailable [phone] Yasmeen Dixon RN Unavailable Al [email or web address] [facility] Khadar Forde MD Unavailable [phone] Jody Fleming RN Unavailable [email or web address] Yasmeen Dixon RN Unavailable Al [email or web address] [facility] Jonas Coleman MD Primary Care Prov ider Alicia Franco SCRUB WHEEL OPERATOR Unavailable [phone] Roxana Fuchs RN Unavailable [phone] Mirlande Mai Unavailable [email or web address] Dawna Baugh [facility] Unavailable [phone] Jin Rajan MD Primary Care Provider [phone] Yusef Beck MBBS Unavailable [phone] Alicia Franco SCRUB WHEEL OPERATOR Unavailable [phone] Isis Borges CATSHOVEL DRIVER Primary Care Provider Romain Cheng MD, PhD Unavailable [phone] Elizabet Quigley MD, PhD Unavailable [phone] Encounter Details Date Type Department Care Team (Late st Contact Info) Description 08/05/2022 Procedure Pass [facility], [address] [address] Social History Tobacco Use Types Packs/Day Years [...] Office Visit [facility] [address] [place] [address], 9th Floor, [address] [place] [address] Greyson Gilbert MD, PhD 55 [facility] [address] [place] [address] [email or web address] Scheduled [...] as of this encounter Care Teams Field Marketing Director Relationship Specialty Start Date End Date Becca Stubbs NP [address] [place] [address] PCP - General Nurse Practitioner 05/08/22 04/27/23 Jonas Coleman MD [address] [place] [address] [email or web address] PCP - General Family Medicine 04/28/23 12/30/23 Jin Rajan MD [address] [place] [phone] [email or web address] PCP - General Family Medicine 12/31/23 06/10/24 Isis Borges NP [address] [place] [address] PCP - General Nurse Practitioner 06/11/24 Jin Rajan MD [email or web address] 07/14/21 Becca Stubbs NP [address] [place] [address] Primary Care Physician 01/27/1610/12 Nora Hood MD [address] [place] [address] [email or web address] Primary Oncologist Medical Oncology 12/19/20 09/16/22 Alex Rider DO [address] [place] [address] [email or web address] [email or web address] Primary Oncologist Hematology and Oncology 09/17/22 Juan Du MD [address] [place] [address] [address] [place] [address] [email or web address] Primary Oncologist Medical Oncology 10/08/22 Yasmeen Dixon, ADELA [address] [place] [address] [email or web address] Primary Infusion Nurse 10/08/22 11/23/22 Khadar Forde MD [address] [place] [address] [email or web address] Radiation Oncology 10/10/22 Jody Fleming RN [address] [place] [address] [email or web address] Primary Infusion Nurse 11/24/22 12/08/22 Yasmeen Dixon RN [address] [place] [address] [email or web address] Primary Infusion Nurse 12/09/22 Alicia Franco, SCRUB WHEEL OPERATOR [address] [place] [address] [email or web address] iCMP Plus Parking Meter Servicer Nurse Practitioner 09/26/2310/01 Roxana Fuchs, ADELA [address] [place] [address] [email or web address] iCMP Plus Parking Meter Servicer 09/26/23 10/26/23 Mirlande Mai [address] [place] [address] [email or web address] iCMP Plus Community Health Worker 09/26/23 10/26/23 Dawna Baugh, [facility] [address] [place] [address] [email or web address] iCMP Plus Planning Supervisor 09/26/23 10/26/23 Yusef Beck MBBS [address] [place] [phone] [email or web address] Medical Oncology 01/31/24 Alicia Franco, SCRUB WHEEL OPERATOR [address] [place] [address] [email or web address] iCMP Plus Parking Meter Servicer Nurse Practitioner 05/14/2406/24 Romain Cheng MD, PhD [address] [address] [email or web address] Medical Oncology 05/12/25 Elizabet Quigley MD, PhD [address] [place] [phone] [email or web address] [place] Surgical Oncology 04/24/25 documented as of this encounter Additional Source Comments The information contained in this document represents components of the legal health record. It is not the complete legal health record.[facility]
--- OUTSIDE RECORDS SUMMARY | 2025-09-25 17:02 | XMS_ITS | Encounter Summary ---
Author Organization [facility] Address [address] [employer] [facility] [address] [place] [address] Phone Care Team Providers Care Functional Director Name Role Phone Jin Rajan MD Unavailable [phone] Alex Rider DO Unavailable [phone] Juan Du MD Unavailable [phone] Khadar Forde MD Unavailable [phone] Yasmeen Dixon RN Unavailable Al [email or web address] Jin Rajan MD Primary Care Provider [phone] Yusef Beck MBBS Unavailable [phone] Alicia Franco PASSENGER RELATIONS REPRESENTATIVE Unavailable Isis Borges NP Primary Care Provider Romain Cheng MD, PhD Unavailable [phone] Elizabet Quigley MD, PhD Unavailable [phone] Encounter Details Date Type Department Care Team (Late st Contact Info) Description 01/19/2024 Procedure Pass [facility] Cardiovascular Center - [address] [place] [address] Social History Tobacco Use Types Packs/Day Years [...] Encounters Date Type Department Care Team ([facility] st Contact Info) Description 10/18/2025 3:20 PM EST Office Visit [facility], 9th Floor, [address] [place] [phone] Greyson Gilbert MD, PhD 55 [facility] [address] [place] [address] [email or web address] Scheduled Procedures Name Priority Associated Diagnoses Date/Ti me 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 documented as of this encounter Visit Diagnoses Not on filedocumented in this encounter Additional Health Concerns Infection Onset Date Last Indicated Resolved Time MRSA 08/03/2024 06/03/2025 documented as of this encounter Care Teams Functional Director Relationship Specialty Start Date End Date Jin Rajan MD [address] [place] [phone] [email or web address] PCP - General Family Medicine 12/31/23 06/10/24 Isis Borges NP [address] [place] [address] PCP - General Nurse Practitioner 06/11/24 Jin Rajan MD [email or web address] Family Medicine 07/14/21 Alex Rider DO 30 [place] [address] [email or web address] Primary Oncologist Hematology and Oncology 09/17/22 Juan Du MD 55 [facility] [address] [place] [phone] [email or web address] Primary Oncologist Medical Oncology 10/08/22 Khadar Forde MD [address] [address] [email or web address] Radiation Oncology 10/10/22 Yasmeen Dixon, ADELA [address] [place], [place] [email or web address] Primary Infusion Nurse 12/09/22 Yusef Beck MBBS [address] [place] [phone] [email or web address] Medical Oncology 01/31/24 Alicia Franco, PASSENGER RELATIONS REPRESENTATIVE [address] [place] [phone] [email or web address] iCMP Plus Barrel Raiser Helper Nurse Practitioner 05/14/2406/24 Romain Cheng MD, PhD 55 [facility] [address] [place] [address] [email or web address]@[email or web address] Medical Oncology 05/12/25 Elizabet Quigley MD, PhD [address] [place] [phone] [email or web address] Surgical Oncology 04/24/25 documented as of this encounter Additional Source Comments The information contained in this document represents components of the legal health record. It is not the complete legal health record.[facility]
--- OUTSIDE RECORDS SUMMARY | 2025-09-25 17:02 | XMS_ITS | Encounter Summary ---
Author Organization [facility] Address [address] [address] Phone Care Team Providers Care Promotions Intern Name Role Phone Jin Rajan MD Unavailable [phone] Becca Stubbs NP Unavailable [phone] Nora Hood MD Unavailable [phone] Becca Stubbs NP Primary Care Provider [phone] Alex Rider DO Unavailable [phone] Juan Du MD Unavailable [phone] Yasmeen Dixon RN Unavailable Al [email or web address]@[email or web address] [facility] Khadar Forde MD Unavailable [phone] Jody Fleming RN Unavailable [email or web address] Yasmeen Dixon RN Unavailable Al [email or web address]@[email or web address] [facility] Jonas Coleman MD Primary Care Prov ider Alicia Franco POLYGRAPH EXAMINER Unavailable +[phone] Roxana Fuchs RN Unavailable [phone] Mirlande Mai Unavailable [email or web address] Dawna Baugh [facility] Unavailable [phone] Jin Rajan MD Primary Care Provider [phone] Yusef Beck MBBS Unavailable [phone] Alicia Franco POLYGRAPH EXAMINER Unavailable Isis Borges RACK PUSHER Primary Care Provider Romain Cheng MD, PhD Unavailable [phone] Elizabet Quigley MD, PhD Unavailable Encounter Details Date Type Department Care Team (Late st Contact Info) Description 09/07/2022 Procedure Pass MRI, [facility] - [facility] [address] [facility], [address] [place] [address] Social History Tobacco Use Types Packs/Day Years [...] Office Visit [facility] [address] [facility], 9th Floor, [address] [place] [address] Greyson Gilbert MD, PhD 55 [facility] [address] [place] [address] [email or web address] Scheduled Procedures Name Priority Associated Diagnoses Date/Ti [...] documented as of this encounter Care Teams Promotions Intern Relationship Specialty Start Date End Date Becca Stubbs NP [address] [place] [address] PCP - General Nurse Practitioner 05/08/22 04/27/23 Jonas Coleman MD [address] [place] [address] [email or web address] PCP - General Family Medicine 04/28/23 12/30/23 Jin Rajan MD [address] [place] [phone] [email or web address] PCP - General Family Medicine 12/31/23 06/10/24 Isis Borges NP [address] [place] [address] PCP - General Nurse Practitioner 06/11/24 Jin Rajan MD [email or web address] 07/14/21 Becca Stubbs NP [address] [place] [address] Primary Care Physician 01/27/1610/12 Nora Hood MD [address] [place] [address] [email or web address] Primary Oncologist Medical Oncology 12/19/20 09/16/22 Alex Rider DO [address] [place] [address] [email or web address] Primary Oncologist Hematology and Oncology 09/17/22 Juan Du MD [address] [place] [address] [address] [place] [address] [email or web address] Primary Oncologist Medical Oncology 10/08/22 Yasmeen Dixon, ADELA [address] [place] [address] [email or web address] Primary Infusion Nurse 10/08/22 11/23/22 Khadar Forde MD [address] [place] [address] [email or web address] Radiation Oncology 10/10/22 Jody Fleming RN [address] [place] [address] [email or web address] Primary Infusion Nurse 11/24/22 12/08/22 Yasmeen Dixon RN [address] [place] [address] [email or web address]@[email or web address] Primary Infusion Nurse 12/09/22 Alicia Franco, POLYGRAPH EXAMINER [address] [place] [address] [email or web address] iCMP Plus Hip Hop Artist Nurse Practitioner 09/26/2310/01 Roxana Fuchs, ADELA [address] [place] [address] [email or web address] [employer] Plus Hip Hop Artist 09/26/23 10/26/23 Modesta, Mirlande [address] [address] [email or web address] G iCMP Plus Community Health Worker 09/26/23 10/26/23 Dawna Baugh [facility] [address] [place] [address] [email or web address] iCMP Plus E Mail System Administrator 09/26/23 10/26/23 Yusef Beck MBBS [address] [place] [phone] [email or web address] Medical Oncology 01/31/24 Alicia Franco, POLYGRAPH EXAMINER [address] [place] [address] [email or web address] iCMP Plus Hip Hop Artist Nurse Practitioner 05/14/2406/24 Romain Cheng MD, PhD [address] [address] [email or web address] Medical Oncology 05/12/25 Elizabet Quigley MD, PhD [address] [place] [phone] [email or web address] Surgical Oncology 04/24/25 documented as of this encounter Additional Source Comments The information contained in this document represents components of the legal health record. It is not the complete legal health record.[facility]
--- OUTSIDE RECORDS SUMMARY | 2025-09-25 17:02 | XMS_ITS | Encounter Summary ---
Author Organization [facility] Address [address] [address] Phone Care Team Providers Care Utility Bill Complaints Investigator Name Role Phone Jin Rajan MD Unavailable [phone] Alex Rider DO Unavailable [phone] Juan Du MD Unavailable [phone] Khadar Forde MD Unavailable [phone] Yasmeen Dixon RN Unavailable Al [email or web address] Jonas Coleman MD Primary Care Prov ider Alicia Franco HOTEL BAGGAGE HANDLER Unavailable [phone] Roxana Fuchs RN Unavailable [phone] Mirlande Mai Unavailable [email or web address] Dawna Baugh [facility] Unavailable [phone] Jin Rajan MD Primary Care Provider [phone] Yusef Beck MBBS Unavailable [phone] Alicia Franco HOTEL BAGGAGE HANDLER Unavailable [phone] Isis Borges NP Primary Care Provider Romain Cheng MD, PhD Unavailable [phone] Elizabet Quigley MD, PhD Unavailable [phone] Encounter Details Date Type Department Care Team (Late Contact Info) Description 08/18/2023 Procedure Pass [facility], Ct Scan - [address] [address] Social History Tobacco Use Types Packs/Day Years [...] Upcoming Encounters Date Type Department Care Team ([facility] Contact Info) Description 10/18/2025 3:20 PM EST Office Visit [facility] [address] [place] [address], 9th Floor, [address] [place] [phone] Greyson Gilbert MD, PhD 55 [facility] [address] [place] [address] [email or web address] Scheduled Procedures Name Priority Associated Diagnoses Date/Ti me 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 documented as of this encounter Visit Diagnoses Not on filedocumented in this encounter Additional Health Concerns Infection Onset Date Last Indicated Resolved Time CoV-Risk 12/07/2023 12/07/2023 12/18/2023 1:22 AM EST CoV-Risk 12/31/2023 12/31/2023 01/11/2024 1:22 AM EDT MRSA 08/03/2024 06/03/2025 documented as of this encounter Care Teams Utility Bill Complaints Investigator Relationship Specialty Start Date End Date Jonas Coleman MD [address] [place] [address] [email or web address] PCP - General Family Medicine 04/28/23 12/30/23 Jin Rajan MD [address] [place] [phone] [email or web address] PCP - General Family Medicine 12/31/23 06/10/24 Isis Borges NP [address] [place] [address] PCP - General Nurse Practitioner 06/11/24 Jin Rajan MD [email or web address] Family Medicine 07/14/21 Alex Rider DO [address] [place] [address] [email or web address] Primary Oncologist Hematology and Oncology 09/17/22 Juan Du MD [address] [place] [address] [address] [place] [address] [email or web address] Primary Oncologist Medical Oncology 10/08/22 Khadar Forde MD [address] [place] [address] [address] [place] [address] [email or web address] Radiation Oncology 10/10/22 Yasmeen Dixon, ADELA 55 [place] [address] [email or web address] Primary Infusion Nurse 12/09/22 Alicia Franco, HOTEL BAGGAGE HANDLER [address] [place] [address] [email or web address] iCMP Plus Tassel Snipper Nurse Practitioner 09/26/2310/01 Roxana Fuchs, ADELA [facility] [place] [address] [email or web address] iCMP Plus Tassel Snipper 09/26/23 10/26/23 Mirlande Mai [facility] [place] [address] [email or web address] iCMP Plus Community Health Worker 09/26/23 10/26/23 Dawna Baugh [facility] [address] [place] [address] [email or web address] iCMP Plus Refrigeration Repair Supervisor 09/26/23 10/26/23 Yusef Beck MBBS [address] [place] [phone] [email or web address] Medical Oncology 01/31/24 Alicia Franco, HOTEL BAGGAGE HANDLER [address] [place] [address] [email or web address] iCMP Plus Tassel Snipper Nurse Practitioner 05/14/2406/24 Romain Cheng MD, PhD [address] [place] [address] YA-[address] [place] [address] [email or web address]@[email or web address] Medical Oncology 05/12/25 Elizabet Quigley MD, PhD [address] [place] [phone] [email or web address] Surgical Oncology 04/24/25 documented as of this encounter Additional Source Comments The information contained in this document represents components of the legal health record. It is not the complete legal health record.[facility]
--- OUTSIDE RECORDS SUMMARY | 2025-09-25 17:02 | XMS_ITS | Encounter Summary ---
Author Organization [facility] Address [address] [address] Phone Care Team Providers Care Automotive Refinisher Name Role Phone Jin Rajan MD Unavailable [phone] Becca Stubbs NP Unavailable [phone] Nora Hood MD Unavailable [phone] Becca Stubbs NP Primary Care Provider [phone] Alex Rider DO Unavailable [phone] Juan Du MD Unavailable [phone] Yasmeen Dixon RN Unavailable Al [email or web address]@[email or web address] .[facility] Khadar Forde MD Unavailable [phone] Jody Fleming RN Unavailable [email or web address] Yasmeen Dixon RN Unavailable Al [email or web address]@[email or web address] .[facility] Jonas Coleman MD Primary Care Prov ider Alicia Franco ROAD GRADER Unavailable [phone] Roxana Fuchs RN Unavailable [phone] Mirlande Mai Unavailable [email or web address] Dawna Baugh [facility] Unavailable [phone] Jin Rajan MD Primary Care Provider [phone] Yusef Beck MBBS Unavailable Alicia Franco ROAD GRADER Unavailable Isis Borges TOOL HARDENER Primary Care Provider Romain Cheng MD, PhD Unavailable Elizabet Quigley MD, PhD Unavailable Encounter Details Date Type Department Care Team (Late Contact Info) Description 08/20/2022 Procedure Pass [facility] [address] [place] [address] Social History Tobacco Use Types Packs/Day Years [...] Office Visit [facility] [address] [place] [address], 9th Floor, [address] [place] [address] Greyson Gilbert MD, PhD [address] [place] [phone] [email or web address] Scheduled Procedures Name Priority Associated Diagnoses Date/Ti [...] documented as of this encounter Care Teams Automotive Refinisher Relationship Specialty Start Date End Date Becca Stubbs NP [address] [place] [address] PCP - General Nurse Practitioner 05/08/22 04/27/23 Jonas Coleman MD [address] [place] [address] [email or web address] PCP - General Family Medicine 04/28/23 12/30/23 Jin Rajan MD [address] [place] [phone] [email or web address] PCP - General Family Medicine 12/31/23 06/10/24 Isis Borges NP [address] [place] [address] PCP - General Nurse Practitioner 06/11/24 Jin Rajan MD [email or web address] Medicine 07/14/21 Becca Stubbs NP [address] [place] [address] Primary Care Physician 01/27/1610/12 Nora Hood MD 30 [place] [address] [email or web address] Primary Oncologist Medical Oncology 12/19/20 09/16/22 Alex Rider DO 30 [place] [address] [email or web address] Primary Oncologist Hematology and Oncology 09/17/22 Juan Du MD [address] [place] [address] 9[address] [place] [phone] [email or web address] Primary Oncologist Medical Oncology 10/08/22 Yasmeen Dixon, ADELA [address] [place] [address] [email or web address] Primary Infusion Nurse 10/08/22 11/23/22 Khadar Forde MD [address] [place] [address] [email or web address] Radiation Oncology 10/10/22 Jody Fleming RN [address] [place] [address] [email or web address] Primary Infusion Nurse 11/24/22 12/08/22 Yasmeen Dixon RN [address] [place] [address] [email or web address] Primary Infusion Nurse 12/09/22 Alicia Franco, ROAD GRADER [address] [place] [address] [email or web address] iCMP Plus Top Lift Trimmer Nurse Practitioner 09/26/2310/01 Roxana Fuchs RN [facility] [place] [address] [email or web address] iCMP Plus Top Lift Trimmer 09/26/23 10/26/23 Mirlande Mai [address] [place] [address] [email or web address]@[email or web address] G iCMP Plus Community Health Worker 09/26/23 10/26/23 Dawna Baugh, [facility] [address] [place] [address] [email or web address] iCMP Plus Certified Dietary Manager 09/26/23 10/26/23 Yusef Beck MBBS [address] [place] [phone] [email or web address] Medical Oncology 01/31/24 Alicia Franco CNP [address] [place] [address] [email or web address] iCMP Plus Top Lift Trimmer Nurse Practitioner 05/14/2406/24 Romain Cheng MD, PhD [address] [place] [address] [email or web address] Medical Oncology 05/12/25 Elizabet Quigley MD, PhD [address] [place] [phone] [email or web address] Surgical Oncology 04/24/25 documented as of this encounter Additional Source Comments The information contained in this document represents components of the legal health record. It is not the complete legal health record.[facility]
--- OUTSIDE RECORDS SUMMARY | 2025-09-25 17:02 | XMS_ITS | Encounter Summary ---
Author Organization [facility] Address [address] [email or web address] [facility] [address] [place] [address] Phone Care Team Providers Care Solar Installation Technician Name Role Phone Jin Rajan MD Unavailable [phone] Alex Rider DO Unavailable [phone] Juan Du MD Unavailable [phone] Khadar Forde MD Unavailable [phone] Yasmeen Dixon RN Unavailable Al [email or web address]@[email or web address]. [facility] Jin Rajan MD Primary Care Provider [phone] Yusef Beck MBBS Unavailable [phone] Alicia Franco ELEMENTARY SCHOOL BAND DIRECTOR Unavailable [phone] Isis Borges NP Primary Care Provider Romain Cheng MD, PhD Unavailable [phone] Elizabet Quigley MD, PhD Unavailable [phone] Encounter Details Date Type Department Care Team (Late st Contact Info) Description 01/17/2024 Procedure Pass [facility], Ct Scan - [address] [address] Social History Tobacco Use Types Packs/Day Years [...] Date of Assessment Author No Risk Indicated 01/17/2024 5:40 PM EDT Nydia Dugan RN * [place] Suicide Severity Rating Scale (Screener/Recent Self-Report) Question Answer Date of Assessment Author 1. Wish to be (Past 1 Month) No 024 5:40 PM EDT Nydia Dugan RN 2. Non-Specific Active Suici vicente Thoughts (Past 1 Month) No 01/17/2024 5:40 PM EDT Nydia Dugan RN 6. Suicidal Behavior (Lifetime) No 4 5:40 PM EDT Nydia Dugan RN documented as of this encounter Plan of Treatment Upcoming Encounters Date Type Department Care Team (Late st Contact Info) Description 10/18/2025 3:20 PM EST Office Visit [facility] [address] [place] [address], 9th Floor, [address] [place] [address] Greyson Gilbert MD, PhD 55 [facility] [address] [place] [address] [email or web address] Scheduled Procedures Name Priority Associated Diagnoses Date/Ti me 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 documented as of this encounter Visit Diagnoses Not on filedocumented in this encounter Additional Health Concerns Infection Onset Date Last Indicated Resolved Time MRSA 08/03/2024 06/03/2025 documented as of this encounter Care Teams Solar Installation Technician Relationship Specialty Start Date End Date Jin Rajan MD [address] [place] [phone] [email or web address] PCP - General Family Medicine 12/31/23 06/10/24 Isis Borges, VALENTÍN [address] [place] [address] PCP - General Nurse Practitioner 06/11/24 Jin Rajan MD [email or web address] Family Medicine 07/14/21 Alex Rider DO 30 [place] [address] [email or web address] Primary Oncologist Hematology and Oncology 09/17/22 Juan Du MD [address] [place] [address] 9[address] [place] [phone] [email or web address] Primary Oncologist Medical Oncology 10/08/22 Khadar Forde MD [address] [place] [address] 3 [place] [address] [email or web address] Radiation Oncology 10/10/22 Yasmeen Dixon, RN 55 [place] [address] [email or web address] Primary Infusion Nurse 12/09/22 Yusef Beck MBBS [address] [place] [phone] [email or web address] Medical Oncology 01/31/24 Alicia Franco, ELEMENTARY SCHOOL BAND DIRECTOR [address] [place] [phone] [email or web address] iCMP Plus Swimming Pool Attendant Nurse Practitioner 05/14/2406/24 Romain Cheng MD, PhD [address] [place] [address] [email or web address]@[facility] Medical Oncology 05/12/25 Elizabet Quigley MD, PhD [address] [place] [phone] [email or web address] Surgical Oncology 04/24/25 documented as of this encounter Additional Source Comments The information contained in this document represents components of the legal health record. It is not the complete legal health record.[facility]
== END 2025-09-25 13:59 | disposition home or self-care (01) ==
LOC: HO.HAP 13:58
PROVIDERS: Visit Provider Otolaryngology
DX: H90.3 Sensorineural hearing loss, bilateral (principal); Z46.1 Encounter for fitting and adjustment of hearing aid
CPT/HCPCS: 92593; 99499